=== PATIENT | male | born 1950 | race Caucasian/White ===

== ENCOUNTER 2017-07-02 09:53 | Inpatient (IN) | payer MEDICARE, BC ==
[2017-07-02] VITALS (7 sets, daily range): BP systolic 124–159; BP diastolic 69–92
[~2017-07-02] VITALS: Ht 177.8 cm; Wt 110.7 kg
[2017-07-02] MEDS ORDERED: ASPIRIN 81 MG TAB.CHEW PO ONE (10:30)
[2017-07-02] MEDS ORDERED: 0.9 % SODIUM CHLORIDE 10 ML DISP.SYRIN. IV PRN (10:30)
[2017-07-02] MEDS ORDERED: IV NORMAL SALINE 1,000ML 1,000 ML IV SCH (10:30)
--- NOTE | 2017-07-02 10:44 | RAD ---
AP PORTABLE CHEST Clinical Indication: sob x1 week. History of COPD. Comparison: AP chest 07/14/2011. Findings: The cardiomediastinal silhouette is normal. There are reticular opacities in the right midlung and the bilateral lung bases. There is no pneumothorax. No pleural effusion is appreciated. There is no acute bone abnormality. IMPRESSION: Reticular opacities in the bilateral lung bases and the right midlung may be interstitial edema or interstitial pneumonia.
[2017-07-02] MEDS ORDERED: methylPREDNISolone SOD SUCC PF 125 MG/2 ML VIAL. IV ONE (10:45)
[2017-07-02] MEDS ORDERED: IPRATRPIUM/ALBUTEROL 0.5/2.5MG 3 ML NEBU. NEB ONE (10:45)
[2017-07-02] MEDS: IV NORMAL SALINE 1,000ML 1,000 ML IV SCH ×4 (10:50→14:33)
--- NOTE | 2017-07-02 10:55 | PHYS DOC ---
Past History Past Medical History: Cancer, COPD, Depression, Diabetes, Heart Disease, Hypertension Past Surgical History: Appendectomy, Knee Replacement Smoking: Quit Greater Than 1 Year Alcohol Use: Occasionally Adult General Chief Complaint Chief Complaint: SHORTNESS OF BREATH [facility] HPI Patient is a pleasant 67-year-old gentleman with history of diabetes, prior stroke cancer requiring chemotherapy and radiation therapy, with a history of COPD, hypercholesterolemia, depression, diabetes peripheral neuropathy, hypertension, who presents to the ER today complaining of increased shortness of breath cough and generalized weakness. Patient began having symptoms of cough runny nose and congestion with low-grade subjective fevers at home 1 week ago. He was seen in the office by Dr. Lara as a nurse practitioner Miss Archuleta and placed on azithromycin. With a course last 3 or 4 days he has not improved his symptoms but his had increasing shortness of breath with work of breathing and now constantly coughing. Patient is sleepy according to family and has had so much weakness that he is followed multiple times although not complaining of any specific pain. Patient's saturation rate is also been noted be dropped because of increased oxygen demand around 80-85%. Patient denies any chest pain, denies any changes in medications, denies any travel outside the country but hospital on a course of azithromycin. He does complain of chest tightness and dyspnea on exertion generalized fatigue without diaphoresis. Differential diagnosis: Acute myocardial ischemia, heart failure, cardiac tamponade, bronchospasm, pulmonary embolism, pneumothorax, pulmonary infection i.e. bronchitis or pneumonia, upper airway obstruction, anaphylaxis, aspiration , psychogenic, pulmonary contusion, toxidrome, pneumomediastinum, noncardiogenic pulmonary edema or ARDS, COPD, tuberculosis, cystic fibrosis, asthma, high altitude pulmonary edema, valvular dysfunction, cardiac dysrhythmia , stroke, neuromuscular diseases like myasthenia gravis gravis, ALS, Guillain- Mathews syndrome, metabolic acidosis to include diabetic ketoacidosis, sepsis, and obstructive disorders like massive obesity Review of Systems Review of Systems Constitutional: Patient has complained of subjective fevers and chills as well as hyperglycemia secondary to diabetes is poorly controlled. Eyes: Denies change in visual acuity, redness, or eye pain [] HENT: he has had some thick nasal congestion without sore throat Respiratory: This patient has had a nonproductive cough with increased shortness of breath Cardiovascular: No additional information not addressed in HPI [] GI: Denies abdominal pain, nausea, vomiting, bloody stools or diarrhea [] : Denies dysuria or hematuria [] Musculoskeletal: Denies back pain or joint pain [] Integument: Denies rash or skin lesions [] Neurologic: Denies headache, focal weakness or sensory changes patient was of generalized weakness and fatigue [] Endocrine: Denies polyuria or polydipsia [] All other systems were reviewed and found to be within normal limits, except as documented in this note. Current Medications Current Medications Current Medications Medications (Trade) Dose Ordered Sig/Jacobo Start Time Stop Time Status Last Admin Dose Admin Aspirin (Children'S Aspirin) 324 mg 1X ONCE 07/02/17 10:30 07/02/17 10:31 DC Fentanyl Citrate (Fentanyl 2ml Vial) 50 mcg PRN Q15MIN PRN 07/02/17 10:30 07/03/17 10:29 Sodium Chloride 1,000 ml @ 3,060 mls/hr Q20M 07/02/17 10:30 07/02/17 11:30 Sodium Chloride (Normal Saline Flush) 10 ml QSHIFT PRN 07/02/17 10:30 Allergies Allergies Allergies Coded Allergies Type Severity Reaction Last Updated Verified No Known Drug Allergies 07/02/17 No Physical Exam Physical Exam Other vital signs recorded on the chart patient noted to be tachycardic, hypoxic , tachypnea, without signs of fever Constitutional: Well developed, well nourished, patient is having some mild respiratory distress but no retractions or sensory muscle use. Patient is pale but nondiaphoretic nontoxic in appearance[] HENT: Normocephalic, atraumatic, bilateral external ears normal, oropharynx dry , no oral exudates there is erythema, nose normal. [] Eyes: PERRLA, EOMI, conjunctiva normal, no discharge. [] Neck: Normal range of motion, no tenderness, supple, no stridor. No cervical lymphadenopathy [] Cardiovascular: Patient demonstrated tachycardia with no obvious murmurs Rubs[] Lungs & Thorax: Patient has essentially clear breath sounds auscultation with the exception of rhonchi coarse at the right base and occasional wheezes with cough.[] Abdomen: Bowel sounds normal, soft, no tenderness, no masses, no pulsatile masses. [] Skin: Warm, dry, no erythema, no rash. [] Extremities: No tenderness, no cyanosis, no clubbing, ROM intact, no edema. [] Neurologic: Alert and oriented X 3, normal motor function, normal sensory function, no focal deficits noted. [] Psychologic: Affect normal, judgement normal, mood normal. [] EKG EKG []EKG timed 10:04 AM read by me 07/02/2017 demonstrates a P wave there were QRS is normal sinus rhythm with a NE interval 170 which is normal, QRS width of 84 which is normal, QTC of 439 which is normal, there is a right bundle branch block RR prime in V1 it is incomplete in nature given the width of the QRS there is also T-wave inversion in lead V1 which may be a normal variant Radiology/Procedures Radiology/Procedures [] [address] [address] IMAGING REPORT Signed PATIENT: LILIA BENDER ACCOUNT: [id number] : 1950 LOCATION: ER AGE: 67 SEX: M EXAM STATUS: PRE ER ORD. PHYSICIAN: JARETT PEGUERO MD REASON: sob PROCEDURE: PORTABLE CHEST 1V AP PORTABLE CHEST Clinical Indication: sob x1 week. History of COPD. Comparison: AP chest 07/14/2011. Findings: The cardiomediastinal silhouette is normal. There are reticular opacities in the right midlung and the bilateral lung bases. There is no pneumothorax. No pleural effusion is appreciated. There is no acute bone abnormality. IMPRESSION: Reticular opacities in the bilateral lung bases and the right midlung may be interstitial edema or interstitial pneumonia. DICTATED AND SIGNED BY: BETH REYES MD DATE: 07/02/17 1040 CC: JARETT PEGUERO MD ~ Course & Med Decision Making Course & Med Decision Making Pertinent Labs and Imaging studies reviewed. (See chart for details) []This patient presents as a 67-year-old gentleman with history of diabetes, hypertension hyperlipidemia all with increasing oxygen demand will be treated as an outpatient for pneumonia with a history of COPD. He in my estimation as pneumonia and a COPD exacerbation are hospitalization. Patient is very hypoxic on exam satting 85% on 2 L nasal cannula as and never has needed an oxygen delivery system in the past. Patient admits he's been very short of breath with exertion and has had fevers and chills. He's been seen by his primary care doctor earlier this week and placed on azithromycin which did not improve his symptoms. Because of the patient's abnormal vital signs are treat himself as a septic patient he will have low blood cultures, lactic acid, troponin, proBNP, chest x-ray, fluids given as well as antibiotics appropriate for a pulmonary infection with failed outpatient management for community acquired pneumonia. I will treat him as any hospital-acquired pneumonia given his recent treatment and interaction with hospital physicians. Diesel Retrofit Installer note: Dr. Deondre Lawson Diesel Retrofit Installer called at of the service service: 11:30 AM Consult called back at 11:31 AM Discussed the case I presented and they agreed with admission. Time of acceptance 11:31 AM Critical Care: The high probability of sudden, clinically significant deterioration in the patient's condition required the highest level of my preparedness to intervene urgently. The services I provided to this patient were to treat and/or prevent clinically significant deterioration. Services included the following: chart data review, reviewing nursing notes and/or old charts, documentation time, websphere commerce consultant collaboration regarding findings and treatment options, medication orders and management, direct patient care, vital sign assessments and ordering, interpreting and reviewing diagnostic studies/ lab tests. Aggregate critical care time includes only time during which I was engaged in work directly related to the patient's care, as described above, whether at the bedside or elsewhere in the Emergency Department. It did not include time spent performing other reported procedures or the services of nurses or physician assistants. Critical Care Time: 40 Dragon Disclaimer Dragon Disclaimer This electronic medical record was generated, in whole or in part, using a voice recognition dictation system. Departure Departure: Impression: Primary Impression: Pneumonia Additional Impressions: Hypoxia COPD (chronic obstructive pulmonary disease) Disposition: 09 ADMITTED INPATIENT Admitting Physician: Deondre Lawson Condition: GUARDED Problem Qualifiers JARETT PEGUERO MD Jul 02, 2017 10:54
[2017-07-02 11:01] LABS: BASO # 0.1 x10^3/uL (0.0-0.2); BASO % 1 % (0-3); EOS # 0.2 x10^3/uL (0.0-0.7); EOS % 1 % (0-3); HEMATOCRIT 42.5 % (39.0-53.0); HEMOGLOBIN 14.2 g/dL (13.0-17.5); LYMPH # 1.3 x10^3/uL (1.0-4.8); LYMPH % 8 % (24-48); MEAN CORPUSCULAR HEMOGLOBIN 30 pg (25-35); MEAN CORPUSCULAR HGB CONC 33 g/dL (31-37); MEAN CORPUSCULAR VOLUME 89 fL (79-100); MONO # 1.4 x10^3/uL (0.0-1.1); MONO % 9 % (0-9); NEUT # 12.7 x10^3uL (1.8-7.7); NEUT % 81 % (31-73); PLATELET COUNT 426 x10^3/uL (140-400); RED CELL DISTRIBUTION WIDTH 14.4 % (11.5-14.5); WHITE BLOOD COUNT 15.6 x10^3/uL (4.0-11.0)
[2017-07-02 11:15] LABS: ALBUMIN 2.6 g/dL (3.4-5.0); CREATININE 1.2 mg/dL (0.7-1.3); DIRECT BILIRUBIN 0.2 mg/dL (0.0-0.2); GFR 60.2; MAGNESIUM 2.2 mg/dL (1.8-2.4); POTASSIUM 4.2 mmol/L (3.5-5.1); TOTAL BILIRUBIN 0.5 mg/dL (0.2-1.0); TOTAL PROTEIN 6.9 g/dL (6.4-8.2)
[2017-07-02 11:28] LABS: INFLUENZA A PATIENT NEGATIVE (NEGATIVE); INFLUENZA B PATIENT NEGATIVE (NEGATIVE)
[2017-07-02 11:40] LABS: % BANDS 1 % (0-9); % LYMPHS 11 % (24-48); % MONOS 7 % (0-10); % SEGS 79 % (35-66)
[2017-07-02 11:41] LABS: PLT ESTIMATE INCREASED (ADEQUATE); POLYCHROMASIA SLIGHT; TOXIC GRANULATION SLIGHT; TOXIC VACUOLATION SLIGHT
[2017-07-02 11:42] LABS: % ATYL 2 % (0-0)
[2017-07-02] MEDS ORDERED: ONDANSETRON PF 4 MG/2 ML VIAL. IV PRN (11:45)
[2017-07-02] MEDS ORDERED: ACETAMINOPHEN 325 MG TABLET PO PRN (11:45)
[2017-07-02] MEDS: IPRATRPIUM/ALBUTEROL 0.5/2.5MG 3 ML NEBU. NEB SCH ×3 (12:00→19:54)
[2017-07-02] MEDS ORDERED: VANCOMYCIN 2 GM in IV NORMAL SALINE 500ML 500 ML IV ONE (12:00)
[2017-07-02 12:09] LABS: BGAS PH 7.42 (7.35-7.46)
--- NOTE | 2017-07-02 12:31 | EKG ---
[address] [address] Test Date: 2017-07-02 Test Time: 10:04:50 Pat Name: LILIA BENDER Department: Room: Gender: M Public Information Director: JUANA : 1950 Requested By: JARETT PEGUERO Order Number: [id number] Reading MD: Measurements Intervals [place] Rate: 87 P: -124 VA: 170 QRS: 39 QRSD: 84 T: 48 QT: 360 QTc: 439 Interpretive Statements SINUS RHYTHM INCOMPLETE RIGHT BUNDLE BRANCH BLOCK QRS(T) CONTOUR ABNORMALITY CONSIDER INFERIOR MYOCARDIAL DAMAGE POSSIBLY ABNORMAL ECG RI6.01 Unconfirmed report No previous ECG available for comparison
[2017-07-02] MEDS ORDERED: CEFEPIME HCL 2 GM VIAL IV ONE (14:28)
[2017-07-02] MEDS ORDERED: IV NORMAL SALINE 100ML 100 ML ONE (14:29)
[2017-07-02] MEDS: CEFEPIME HCL 2 GM in IV NORMAL SALINE 100ML 100 ML IV SCH ×2 (14:34→15:29)
--- NOTE | 2017-07-02 15:08 | PDOC2 ---
CONSULT Date of Admission DATE: 07/02/17 TIME: 15:08 Reason for Consult: Possible CHF Referring Physician: Dr. Lawson Chief Complaint Shortness of breath Source: Chart review, Patient Problem List Problems Medical Problems: (1) COPD (chronic obstructive pulmonary disease) Status: Acute (2) Hypoxia Status: Acute (3) Pneumonia Status: Acute History of Present Illness 67-year-old male with history of COPD presented to ED with progressive shortness of breath and cough. He apparently was seen at PCPs office recently for cough, congestion or more fever and shortness of breath and was started on Z -Juan without any significant relief in his symptoms. He complained of mild chest discomfort with coughing but denied any orthopnea/PND, palpitations or syncope. He denied any previous cardiac history. Past Medical History COPD Depression Hypertension Hyperlipidemia Diabetes mellitus type 2 with peripheral neuropathy Stroke Past Surgical History Appendectomy Knee replacement surgery Family History Negative for premature coronary artery disease Social History Patient quit smoking a few years ago, admitted to occasional alcohol intake and denied any drug abuse. Current Medications Current Medications Aspirin (Children'S Aspirin) 324 mg 1X ONCE PO Last administered on 11:00; Start 07/02/17 at 10:30; Stop 07/02/17 at 10:31; Status DC Fentanyl Citrate (Fentanyl 2ml Vial) 50 mcg PRN Q15MIN PRN IV PAIN GREATER THAN 3/10; Start 07/02/17 at 10:30; Stop 07/03/17 at 10:29 Sodium Chloride 1,000 ml @ 1,000 mls/hr Q1H IV Last administered on 10:59; Start 07/02/17 at 10:30; Stop 07/02/17 at 11:29; Status DC Sodium Chloride (Normal Saline Flush) 10 ml QSHIFT PRN IV AFTER MEDS AND BLOOD DRAWS; Start 07/02/17 at 10:30 Sodium Chloride 1,000 ml @ 3,060 mls/hr Q20M IV Last administered on 14:33; Start 07/02/17 at 10:30; Stop 07/02/17 at 11:30; Status DC Methylprednisolone Sodium Succinate (SOLU-Medrol 125MG VIAL) 125 mg 1X ONCE IV Last administered on 07/02/17 11:00; Start 07/02/17 at 10:45; Stop at 10:46; Status DC Albuterol/ Ipratropium (Duoneb) 3 ml 1X ONCE NEB Last administered on 11:04; Start 07/02/17 at 10:45; Stop 07/02/17 at 10:46; Status DC Ondansetron HCl (Zofran) 4 mg PRN Q4HRS PRN IV NAUSEA/VOMITING; Start at 11:45; Stop 07/03/17 at 11:44 Fentanyl Citrate (Fentanyl 2ml Vial) 50 mcg PRN Q2HR PRN IV PAIN; Start at 11:45; Stop 07/03/17 at 11:44 Acetaminophen (Tylenol) 650 mg PRN Q4HRS PRN PO FEVER; Start 07/02/17 at 11:45 ; Stop 07/03/17 at 11:44 Albuterol/ Ipratropium (Duoneb) 3 ml RTQID NEB ; Start 07/02/17 at 12:00; Stop 07/03/17 at 11:59 Cefepime HCl 2 gm/ Sodium Chloride 100 ml @ 200 mls/hr Q8HRS IV Last administered on 07/02/17 14:34; Start 07/02/17 at 14:00 Vancomycin HCl (Vanco Per Pharmacy) 1 each PRN DAILY PRN MC SEE COMMENTS; Start 07/02/17 at 11:45 Vancomycin HCl 2 gm/Sodium Chloride 500 ml @ 250 mls/hr 1X ONCE IV Last administered on 07/02/17 12:00; Start 07/02/17 at 12:00; Stop 07/02/17 at 13 :59; Status DC Cefepime HCl (Maxipime) 2 gm STK-MED ONCE IV ; Start 07/02/17 at 14:28; Stop 07/02/17 at 14:29; Status DC Sodium Chloride 100 ml @ As Directed STK-MED ONCE .ROUTE ; Start 07/02/17 at 14:29; Stop 07/02/17 at 14:30; Status DC Allergies: Coded Allergies: No Known Drug Allergies (Unverified , 07/02/17) PSYCHOLOGICAL ROS: No: Hallucinations Eyes: No: Loss of vision HEENT: No: Epistaxis Respiratory: YES: Cough, Shortness of breath, No: Hemoptysis Cardiovascular: yes: Chest Pain, No: Palpitations Gastrointestinal: No: Vomiting, Diarrhea Genitourinary: No: Henaturia Neurological: No: Seizures Skin: No: Rash General: Alert, mild distress HEENT: Atraumatic, PERRLA Lungs: Other (scattered crepitations bilaterally) Heart: Regular rate Abdomen: Soft Skin: No rashes Psych/Mental Status: Mood NL VITALS Vital Signs Date Time Temp Pulse Resp B/P (MAP) Pulse Ox O2 Delivery O2 Flow Rate FiO2 07/02/17 14:30 78 16 156/79 (104) 94 Nasal Cannula 3.0 07/02/17 09:55 99.0 Labs Laboratory Tests Test 07/02/17 10:10 07/02/17 10:12 07/02/17 10:25 07/02/17 13:55 White Blood Count 15.6 x10^3/uL (4.0-11.0) Red Blood Count 4.80 x10^6/uL (4.30-5.70) Hemoglobin 14.2 g/dL (13.0-17.5) Hematocrit 42.5 % (39.0-53.0) Mean Corpuscular Volume 89 fL (79-100) Mean Corpuscular Hemoglobin 30 pg (25-35) Mean Corpuscular Hemoglobin Concent 33 g/dL (31-37) Red Cell Distribution Width 14.4 % (11.5-14.5) Platelet Count 426 x10^3/uL (140-400) Neutrophils (%) (Auto) 81 % (31-73) Lymphocytes (%) (Auto) 8 % (24-48) Monocytes (%) (Auto) 9 % (0-9) Eosinophils (%) (Auto) 1 % (0-3) Basophils (%) (Auto) 1 % (0-3) Neutrophils # (Auto) 12.7 x10^3uL (1.8-7.7) Lymphocytes # (Auto) 1.3 x10^3/uL (1.0-4.8) Monocytes # (Auto) 1.4 x10^3/uL (0.0-1.1) Eosinophils # (Auto) 0.2 x10^3/uL (0.0-0.7) Basophils # (Auto) 0.1 x10^3/uL (0.0-0.2) Segmented Neutrophils % 79 % (35-66) Band Neutrophils % 1 % (0-9) Lymphocytes % 11 % (24-48) Atypical Lymphocytes % (Manual) 2 % (0-0) Monocytes % 7 % (0-10) Toxic Granulation Slight Toxic Vacuolation Slight Platelet Estimate Increased (ADEQUATE) Large Platelets Occ Polychromasia Slight Sodium Level 136 mmol/L (136-145) Potassium Level 4.2 mmol/L (3.5-5.1) Chloride Level 99 mmol/L (98-107) Carbon Dioxide Level 29 mmol/L (21-32) Anion Gap 8 (6-14) Blood Urea Nitrogen 21 mg/dL (8-26) Creatinine 1.2 mg/dL (0.7-1.3) Estimated GFR (Cockcroft-Gault) 60.2 Glucose Level 172 mg/dL (70-99) Lactic Acid Level 1.8 mmol/L (0.4-2.0) 1.4 mmol/L (0.4-2.0) Calcium Level 9.0 mg/dL (8.5-10.1) Magnesium Level 2.2 mg/dL (1.8-2.4) Total Bilirubin 0.5 mg/dL (0.2-1.0) Direct Bilirubin 0.2 mg/dL (0.0-0.2) Aspartate Amino Transf (AST/SGOT) 25 U/L (15-37) Alanine Aminotransferase (ALT/SGPT) 35 U/L (16-63) Alkaline Phosphatase 270 U/L (46-116) Creatine Kinase 291 U/L (39-308) Creatine Kinase MB (Mass) 2.4 ng/mL (0.0-3.6) Creatine Kinase MB Relative Index 0.8 % (0-4) Troponin I Quantitative < 0.017 ng/mL (0-0.055) XG-Nqh-W-Type Natriuretic Peptide 611 pg/mL (0-124) Total Protein 6.9 g/dL (6.4-8.2) Albumin 2.6 g/dL (3.4-5.0) Lipase 47 U/L (73-393) Influenza Type A (Rapid) Negative (NEGATIVE) Influenza Type B (Rapid) Negative (NEGATIVE) Blood Gas pH 7.42 (7.35-7.46) Blood Gas PCO2 39 mmHg (35-46) Blood Gas PO2 53 mmHg (80-100) Blood Gas HCO3 25 mmol/L (21-28) Arterial Bld O2 Saturation (Calc) 88 % (92-99) FiO2 28 % Assessment/Plan 1. Acute respiratory failure secondary to combination of acute COPD exacerbation and possible pneumonia based on chest x-ray findings. BNP slightly elevated but patient does not have any clinical evidence for fluid overload. Doubt congestive heart failure. BNP elevation could be secondary to pneumonia. We will obtain 2-D echo to assess LV systolic function - could be done as an outpatient if it is not available over weekend due to holidays. Continue treatment of COPD and pneumonia per IM. 2. Hypertension: Well-controlled 3. Hyperlipidemia: Statins 4. Diabetes mellitus type 2: Treat per PCP Thank you for your consultation Problems: GILA SÁNCHEZ MD Jul 02, 2017 15:08
[2017-07-02] MEDS ORDERED: CETI10TA16 PO (16:00)
[2017-07-02] MEDS ORDERED: INSU100I13 SQ (16:00)
[2017-07-02] MEDS ORDERED: ESOM40CA PO (16:00)
[2017-07-02] MEDS ORDERED: ESCITALOPRAM OX10 MG PO (16:00)
[2017-07-02] MEDS ORDERED: GABA-586 PO (16:00)
[2017-07-02] MEDS ORDERED: PRAV20TA2 PO (16:00)
[2017-07-02] MEDS ORDERED: FLUT9.9S NS (16:00)
[2017-07-02] MEDS ORDERED: BUPR-192 PO (16:00)
[2017-07-02] MEDS ORDERED: VITA80003 PO (16:00)
[2017-07-02] MEDS ORDERED: LORA0.5T96 PO (16:00)
[2017-07-02] MEDS ORDERED: LISI-334 PO (16:00)
[2017-07-02] MEDS ORDERED: DEXTROSE 50% 25 GM / 50ML DISP.SYRIN. IV PRN (16:15)
[2017-07-02] MEDS ORDERED: INSULIN ASPART 300 UNITS/3 ML INSULN.PEN SQ SCH (16:30)
[2017-07-02] MEDS: VANCOMYCIN PER PHARMACY MC PRN (16:34)
[2017-07-02] MEDS: INSULIN ASPART 300 UNITS/3 ML INSULN.PEN SQ SCH (17:03)
[2017-07-02] MEDS: buPROPion XL 150 MG TAB.ER.24H PO SCH (20:53)
[2017-07-02] MEDS: PRAVASTATIN 20 MG TABLET. PO SCH (20:53)
[2017-07-02] MEDS: GABAPENTIN 300 MG CAPSULE. PO SCH (20:53)
[2017-07-02] MEDS: INSULIN DETEMIR 300 UNITS/3 ML INSULN.PEN. SQ SCH (20:53)
[2017-07-02] MEDS: methylPREDNISolone SOD SUCC PF 40 MG/ML VIAL. IV SCH (20:53)
[2017-07-02] MEDS: PANTOPRAZOLE 40 MG TABLET. PO SCH (20:53)
[2017-07-02] MEDS ORDERED: GABAPENTIN 300 MG CAPSULE. PO SCH (21:00)
[2017-07-02] MEDS ORDERED: INSULIN ASPART 300 UNITS/3 ML INSULN.PEN SQ ONE (21:00)
[2017-07-02] MEDS: VANCOMYCIN 1.5 GM in IV NORMAL SALINE 500ML 500 ML IV SCH (23:44)
[2017-07-02 23:58] LABS: BILIRUBIN,URINE NEG (NEG); CLARITY,URINE CLEAR; COLOR,URINE YELLOW; GLUCOSE,URINE >=1000 mg/dL (NEG)
[2017-07-02 23:59] LABS: BACTERIA,URINE 0 /HPF (0-FEW); NITRITE,URINE NEG (NEG); RBC,URINE 0 /HPF (0-2); UROBILINOGEN,URINE 0.2 mg/dL (0.2 mg/dL); WBC,URINE 0 /HPF (0-4)
[2017-07-03] VITALS (14 sets, daily range): BP systolic 131–176; BP diastolic 65–87
[2017-07-03] MEDS: IPRATRPIUM/ALBUTEROL 0.5/2.5MG 3 ML NEBU. NEB SCH ×4 (05:39→20:03)
[2017-07-03] MEDS: INSULIN ASPART 300 UNITS/3 ML INSULN.PEN SQ SCH ×4 (07:30→20:29)
[2017-07-03 07:45] LABS: BASO # 0.2 x10^3/uL (0.0-0.2); BASO % 1 % (0-3); CALCIUM 8.7 mg/dL (8.5-10.1); CREATININE 1.3 mg/dL (0.7-1.3); EOS % 0 % (0-3); GFR 54.9; HEMATOCRIT 38.9 % (39.0-53.0); HEMOGLOBIN 12.9 g/dL (13.0-17.5); LYMPH # 0.6 x10^3/uL (1.0-4.8); LYMPH % 4 % (24-48); MEAN CORPUSCULAR HEMOGLOBIN 29 pg (25-35); MEAN CORPUSCULAR HGB CONC 33 g/dL (31-37); MEAN CORPUSCULAR VOLUME 89 fL (79-100); MONO # 0.6 x10^3/uL (0.0-1.1); MONO % 3 % (0-9); NEUT # 15.8 x10^3uL (1.8-7.7); NEUT % 92 % (31-73); PLATELET COUNT 396 x10^3/uL (140-400); POTASSIUM 4.1 mmol/L (3.5-5.1); RED BLOOD COUNT 4.37 x10^6/uL (4.30-5.70); RED CELL DISTRIBUTION WIDTH 14.6 % (11.5-14.5); WHITE BLOOD COUNT 17.2 x10^3/uL (4.0-11.0)
[2017-07-03] MEDS ORDERED: INSULIN DETEMIR 300 UNITS/3 ML INSULN.PEN. SQ ONE (08:15)
[2017-07-03] MEDS ORDERED: INSULIN ASPART 300 UNITS/3 ML INSULN.PEN SQ ONE ×2 (08:15→19:30)
[2017-07-03] MEDS ORDERED: NON FORMULARY ITEM (Vitamin A 8,000 UNIT) PO SCH (09:00)
[2017-07-03] MEDS ORDERED: NON FORMULARY ITEM (Escitalopram Oxalate 1 TAB) PO SCH (09:00)
[2017-07-03] MEDS: CETIRIZINE HCL 10 MG TABLET PO SCH (09:16)
[2017-07-03] MEDS: CITALOPRAM 20 MG TABLET. PO SCH (09:16)
[2017-07-03] MEDS: LACTOBACILLUS RHAMNOSUS GG 1 CAPSULE. PO SCH ×2 (09:16→20:27)
[2017-07-03] MEDS: GABAPENTIN 300 MG CAPSULE. PO SCH ×3 (09:17→20:27)
[2017-07-03] MEDS: buPROPion XL 150 MG TAB.ER.24H PO SCH ×2 (09:17→20:27)
[2017-07-03] MEDS: FLUTICASONE 50MCG/NASAL SPRAY 16GM BOTTLE. NS SCH (09:17)
[2017-07-03] MEDS: PANTOPRAZOLE 40 MG TABLET. PO SCH ×2 (09:17→20:26)
[2017-07-03] MEDS: methylPREDNISolone SOD SUCC PF 40 MG/ML VIAL. IV SCH (09:18)
[2017-07-03] MEDS: LISINOPRIL 20 MG TABLET PO SCH (09:18)
[2017-07-03] MEDS: VANCOMYCIN 1.5 GM in IV NORMAL SALINE 500ML 500 ML IV SCH (11:29)
[2017-07-03] MEDS ORDERED: CEFEPIME HCL 2 GM in IV NORMAL SALINE 100ML 100 ML IV ONE (16:30)
[2017-07-03] MEDS: LORazepam 0.5 MG TABLET PO PRN (20:27)
[2017-07-03] MEDS: PRAVASTATIN 20 MG TABLET. PO SCH (20:27)
[2017-07-03] MEDS: INSULIN DETEMIR 300 UNITS/3 ML INSULN.PEN. SQ SCH (20:28)
--- NOTE | 2017-07-03 21:11 | PN ---
DATE: 07/03/2017 SUBJECTIVE: A 67-year-old male in with pneumonia, sinus tachycardia. The patient is resting fairly comfortably, making fairly good progress overall. OBJECTIVE: VITAL SIGNS: Blood pressure 140/75, respiratory rate in the 80s, pulse in the 90s, oxygen saturation 3 liters, but apparently desaturates in the 80s with oxygen off. The patient continued to receive aggressive pulmonary toilet. He is on antibiotics for the pneumonia. Also, insulin in getting the sugars down. Continue to monitor him accordingly and the like. GENERAL: Otherwise, alert and oriented. LUNGS: Diminished throughout, poor movement of air. CARDIOVASCULAR: Regular sinus rhythm, S1, S2. PLAN: We will continue to monitor him accordingly. Make further evaluation on him as indicated. IMPRESSION: Pneumonia of unspecified etiology, community acquired, sinus tachycardia, hyperglycemia, type 2 diabetes, poorly controlled, obesity, hyponatremia. Continue on IV antibiotic therapy, aggressive pulmonary toilet. Taper down on prednisone to control blood sugars well. ROBIN ESPARZA MD DR: DOMONIQUE/sanam JOB#: [id number] / [id number]
[2017-07-03] MEDS: CEFEPIME HCL IV Push 2 GM VIAL. IVP SCH (21:44)
[2017-07-04] MEDS: VANCOMYCIN 1.5 GM in IV NORMAL SALINE 500ML 500 ML IV SCH ×2 (00:25→12:23)
[2017-07-04] MEDS: VANCOMYCIN PER PHARMACY MC PRN (00:42)
[2017-07-04] MEDS ORDERED: PNEUMOCOCCAL VAX SCREEN. MC PRN (02:45)
[2017-07-04] MEDS: IPRATRPIUM/ALBUTEROL 0.5/2.5MG 3 ML NEBU. NEB SCH ×4 (05:13→22:43)
[2017-07-04 05:14] VITALS: BP 133/75
[2017-07-04] MEDS: CEFEPIME HCL IV Push 2 GM VIAL. IVP SCH ×3 (06:26→21:39)
[2017-07-04 06:34] LABS: BASO % 0 % (0-3); EOS % 0 % (0-3); HEMOGLOBIN 12.6 g/dL (13.0-17.5); LYMPH % 5 % (24-48); MEAN CORPUSCULAR HEMOGLOBIN 30 pg (25-35); MEAN CORPUSCULAR HGB CONC 33 g/dL (31-37); MEAN CORPUSCULAR VOLUME 89 fL (79-100); MONO # 1.1 x10^3/uL (0.0-1.1); MONO % 6 % (0-9); NEUT % 89 % (31-73); PLATELET COUNT 409 x10^3/uL (140-400); RED BLOOD COUNT 4.28 x10^6/uL (4.30-5.70); RED CELL DISTRIBUTION WIDTH 14.5 % (11.5-14.5); WHITE BLOOD COUNT 20.1 x10^3/uL (4.0-11.0)
[2017-07-04 06:43] LABS: CALCIUM 8.5 mg/dL (8.5-10.1); CREATININE 1.2 mg/dL (0.7-1.3); GFR 60.2; POTASSIUM 4.2 mmol/L (3.5-5.1)
[2017-07-04] MEDS: INSULIN ASPART 300 UNITS/3 ML INSULN.PEN SQ SCH ×7 (07:30→21:22)
[2017-07-04] MEDS ORDERED: PNEUMOC CONJ VACC 23-VALENT 0.5 ML VIAL. VAX IM ONE (09:00)
[2017-07-04] MEDS: LACTOBACILLUS RHAMNOSUS GG 1 CAPSULE. PO SCH ×2 (09:22→21:17)
[2017-07-04] MEDS: CETIRIZINE HCL 10 MG TABLET PO SCH (09:22)
[2017-07-04] MEDS: CITALOPRAM 20 MG TABLET. PO SCH (09:22)
[2017-07-04] MEDS: PANTOPRAZOLE 40 MG TABLET. PO SCH ×2 (09:22→21:18)
[2017-07-04] MEDS: GABAPENTIN 300 MG CAPSULE. PO SCH ×3 (09:23→21:18)
[2017-07-04] MEDS: LISINOPRIL 20 MG TABLET PO SCH (09:23)
[2017-07-04] MEDS: buPROPion XL 150 MG TAB.ER.24H PO SCH ×2 (09:23→21:17)
[2017-07-04] MEDS: FLUTICASONE 50MCG/NASAL SPRAY 16GM BOTTLE. NS SCH (09:24)
[2017-07-04] MEDS: methylPREDNISolone SOD SUCC PF 40 MG/ML VIAL. IV SCH (09:29)
[2017-07-04 10:34] VITALS: BP 130/78
[2017-07-04 14:15] LABS: % BANDS 6 % (0-9); % LYMPHS 3 % (24-48); % MONOS 4 % (0-10); % SEGS 87 % (35-66)
[2017-07-04 14:18] LABS: PLT ESTIMATE INCREASED (ADEQUATE)
[2017-07-04 15:47] VITALS: BP 147/70
--- NOTE | 2017-07-04 18:28 | PN ---
DATE: SUBJECTIVE: A 67-year-old gentleman in with acute exacerbation of COPD. The patient is resting fairly comfortably, he is still breathing fairly hard, desaturates quite a bit if he is taken off his oxygen. Because of the holiday unable to get him oxygen and nebulizer. OBJECTIVE: VITAL SIGNS: Otherwise, blood pressure 140/70, respiratory rate 20, pulse 80, afebrile, 3 liters at 93%. GENERAL: The patient is alert and oriented. LUNGS: Diminished with expiratory wheezes. CARDIOVASCULAR: Regular sinus rhythm, S1, S2. ABDOMEN: Soft. IMPRESSION: Pneumonia of unspecified etiology, acute exacerbation of chronic obstructive pulmonary disease, type 2 diabetes. Continue on present drug regimen and hopefully ready for discharge here soon. ROBIN ESPARZA MD DR: DOMONIQUE/sanam JOB#: [id number] / [id number]
[2017-07-04 19:25] VITALS: BP 135/84
[2017-07-04] MEDS: PRAVASTATIN 20 MG TABLET. PO SCH (21:17)
[2017-07-04] MEDS: INSULIN DETEMIR 300 UNITS/3 ML INSULN.PEN. SQ SCH (21:19)
[2017-07-04 22:57] VITALS: BP 168/94
[2017-07-04] MEDS: LORazepam 0.5 MG TABLET PO PRN (23:03)
[2017-07-05] MEDS: VANCOMYCIN 1.5 GM in IV NORMAL SALINE 500ML 500 ML IV SCH ×3 (00:11→17:05)
[2017-07-05 05:02] VITALS: BP 114/76
[2017-07-05] MEDS: IPRATRPIUM/ALBUTEROL 0.5/2.5MG 3 ML NEBU. NEB SCH ×4 (05:41→21:10)
[2017-07-05] MEDS: CEFEPIME HCL IV Push 2 GM VIAL. IVP SCH ×3 (05:51→21:41)
[2017-07-05 07:09] LABS: BASO # 0.1 x10^3/uL (0.0-0.2); BASO % 0 % (0-3); EOS % 0 % (0-3); HEMATOCRIT 39.4 % (39.0-53.0); LYMPH # 1.4 x10^3/uL (1.0-4.8); LYMPH % 9 % (24-48); MEAN CORPUSCULAR HEMOGLOBIN 29 pg (25-35); MEAN CORPUSCULAR HGB CONC 33 g/dL (31-37); MEAN CORPUSCULAR VOLUME 89 fL (79-100); MONO # 1.1 x10^3/uL (0.0-1.1); MONO % 7 % (0-9); NEUT % 83 % (31-73); PLATELET COUNT 403 x10^3/uL (140-400); RED BLOOD COUNT 4.41 x10^6/uL (4.30-5.70); RED CELL DISTRIBUTION WIDTH 14.3 % (11.5-14.5); WHITE BLOOD COUNT 15.6 x10^3/uL (4.0-11.0)
[2017-07-05 07:18] LABS: CALCIUM 8.5 mg/dL (8.5-10.1); CREATININE 1.1 mg/dL (0.7-1.3); GFR 66.6; POTASSIUM 3.8 mmol/L (3.5-5.1)
[2017-07-05] MEDS: buPROPion XL 150 MG TAB.ER.24H PO SCH ×2 (07:56→21:38)
[2017-07-05] MEDS: PANTOPRAZOLE 40 MG TABLET. PO SCH ×2 (07:56→21:38)
[2017-07-05] MEDS: methylPREDNISolone SOD SUCC PF 40 MG/ML VIAL. IV SCH (07:56)
[2017-07-05] MEDS: LACTOBACILLUS RHAMNOSUS GG 1 CAPSULE. PO SCH ×2 (07:56→21:37)
[2017-07-05] MEDS: CETIRIZINE HCL 10 MG TABLET PO SCH (07:56)
[2017-07-05] MEDS: CITALOPRAM 20 MG TABLET. PO SCH (07:56)
[2017-07-05] MEDS: GABAPENTIN 300 MG CAPSULE. PO SCH ×3 (07:56→21:38)
[2017-07-05] MEDS: LISINOPRIL 20 MG TABLET PO SCH (07:57)
[2017-07-05] MEDS: FLUTICASONE 50MCG/NASAL SPRAY 16GM BOTTLE. NS SCH (07:58)
[2017-07-05] MEDS: INSULIN ASPART 300 UNITS/3 ML INSULN.PEN SQ SCH ×7 (07:58→21:41)
[2017-07-05 11:34] VITALS: BP 155/87
[2017-07-05 11:42] LABS: VANC TR 19.9 mcg/mL (10.0-20.0)
[2017-07-05] MEDS: VANCOMYCIN PER PHARMACY MC PRN (12:27)
--- NOTE | 2017-07-05 13:35 | RAD ---
Chest, 2 views, 07/05/2017: History: Follow-up pneumonia Comparison is made to a study from 07/02/2017. The heart size is normal. There is mild tortuosity of the thoracic aorta. There are persistent reticulonodular pulmonary opacities, predominantly on the right, which appear unchanged. There is mild linear atelectasis in the right base. Slight blunting of the right costophrenic angles raises the possibility of a tiny amount of pleural fluid. IMPRESSION: 1. Persistent mild reticulonodular right pulmonary infiltrates suggesting pneumonia. 2. Mild right basilar linear atelectasis. 3. Possible tiny right pleural effusion.
[2017-07-05 15:08] VITALS: BP 143/83
[2017-07-05 20:21] VITALS: BP 130/71
[2017-07-05] MEDS ORDERED: INSULIN DETEMIR 300 UNITS/3 ML INSULN.PEN. SQ SCH (21:00)
[2017-07-05] MEDS: PRAVASTATIN 20 MG TABLET. PO SCH (21:38)
[2017-07-05] MEDS: LORazepam 0.5 MG TABLET PO PRN (21:38)
[2017-07-05] MEDS ORDERED: INSULIN ASPART 300 UNITS/3 ML INSULN.PEN SQ ONE (22:00)
[2017-07-05 23:00] VITALS: BP 148/77
[2017-07-06] MEDS: CEFEPIME HCL IV Push 2 GM VIAL. IVP SCH ×2 (05:38→14:00)
[2017-07-06] MEDS: VANCOMYCIN 1.5 GM in IV NORMAL SALINE 500ML 500 ML IV SCH (05:39)
[2017-07-06 06:05] VITALS: BP 146/88
[2017-07-06] MEDS: IPRATRPIUM/ALBUTEROL 0.5/2.5MG 3 ML NEBU. NEB SCH ×2 (06:18→10:53)
[2017-07-06 06:28] LABS: BASO % 0 % (0-3); EOS # 0.1 x10^3/uL (0.0-0.7); EOS % 1 % (0-3); HEMATOCRIT 39.5 % (39.0-53.0); HEMOGLOBIN 13.1 g/dL (13.0-17.5); LYMPH # 1.5 x10^3/uL (1.0-4.8); LYMPH % 11 % (24-48); MEAN CORPUSCULAR HEMOGLOBIN 29 pg (25-35); MEAN CORPUSCULAR HGB CONC 33 g/dL (31-37); MEAN CORPUSCULAR VOLUME 88 fL (79-100); MONO # 0.8 x10^3/uL (0.0-1.1); MONO % 6 % (0-9); NEUT # 11.5 x10^3uL (1.8-7.7); NEUT % 82 % (31-73); PLATELET COUNT 421 x10^3/uL (140-400); RED BLOOD COUNT 4.49 x10^6/uL (4.30-5.70); RED CELL DISTRIBUTION WIDTH 14.1 % (11.5-14.5)
[2017-07-06 06:32] LABS: ALBUMIN 2.3 g/dL (3.4-5.0); ALBUMIN/GLOBULIN RATIO 0.5 (1.0-1.7); CALCIUM 8.7 mg/dL (8.5-10.1); CREATININE 1.1 mg/dL (0.7-1.3); GFR 66.6; POTASSIUM 3.8 mmol/L (3.5-5.1); TOTAL BILIRUBIN 0.2 mg/dL (0.2-1.0); TOTAL PROTEIN 6.5 g/dL (6.4-8.2)
[2017-07-06] MEDS: INSULIN ASPART 300 UNITS/3 ML INSULN.PEN SQ SCH ×4 (07:30→11:30)
--- NOTE | 2017-07-06 08:15 | CARD ---
MR#: [id number] Account#: Date of Study: 07/05/2017 Ordering Physician: Jocelyn: Malika Campuzano [facility] APPROVED REPORT EXAM: Two-dimensional and M-mode echocardiogram with Doppler and color Doppler. Other Information Quality : Good INDICATION Chest Pain 2D DIMENSIONS Left Atrium(2D)4.8 (1.6-4.0cm)IVSd1.3 (0.7-1.1cm) Aortic Root(2D)3.9 (2.0-3.7cm)LVDd4.4 (3.9-5.9cm) LVOT Diameter2.2 (1.8-2.4cm)PWd1.2 (0.7-1.1cm) LVDs3.0 (2.5-4.0cm)FS (%) 30.6 % SV50.6 mlLVEF(%)58.3 (>50%) Aortic Valve AoV Peak Finn.189.9cm/sAoV VTI38.7cm AO Peak GR.14.4mmHgLVOT Peak Finn.127.4cm/s LVOT VTI 32.41cmAO Mean GR.7mmHg DUNIA (VMAX)2.98pr1CUE (VTI)3.14cm2 Mitral Valve MV E Mwhbuamu447.1cm/sMV DECEL MCPL632qh MV A Pvhshcsh71.4cm/sE/A Ratio1.4 Tricuspid Valve TR P. Duvzryau752gy/sRAP KNPDEWNO6pwIf TR Peak Gr.70hyEgGAWT08vpBr LEFT VENTRICLE The left ventricle is normal size. There is mild concentric left ventricular hypertrophy. Left ventri elaine systolic function is normal. The Ejection Fraction is 55-60%. There is normal LV segmental wall m otion. Transmitral Doppler flow pattern is Grade II-pseudonormal filling dynamics. RIGHT VENTRICLE The right ventricle is normal size. The right ventricular systolic function is normal. ATRIA The left atrium is mild to moderately dilated. The right atrium is mildly dilated. The interatrial se ptum is intact with no evidence for an atrial septal defect or patent foramen ovale as noted on 2-D o r Doppler imaging. AORTIC VALVE The aortic valve is mildly calcified and not well visualized. Doppler and Color Flow revealed no sign ificant aortic regurgitation. There is no significant aortic valvular stenosis. MITRAL VALVE The mitral valve is calcified but opens well. There is no evidence of mitral valve prolapse. There is no mitral valve stenosis. Doppler and Color-flow revealed trace to mild mitral regurgitation. TRICUSPID VALVE The tricuspid valve is normal in structure and function. Doppler and Color Flow revealed mild tricusp id regurgitation. There is no pulmonary hypertension. The PA pressure was estimated at 23 mmHg. There is no tricuspid valve prolapse or vegetation. There is no tricuspid valve stenosis. PULMONIC VALVE Doppler and Color Flow revealed no pulmonic valvular regurgitation. There is no pulmonic valvular dereje nosis. GREAT VESSELS The aortic root is normal in size. The ascending aorta is normal in size. The IVC is normal in size a nd collapses >50% with inspiration. PERICARDIAL EFFUSION There is no pleural effusion. There is no evidence of significant pericardial effusion. Critical Notification Critical Value: No <Conclusion> Left ventricle systolic function is normal. The Ejection Fraction is 55-60%. There is normal LV segmental wall motion. Signed by : Filemon Hobson, Electronically Approved : 07/05/2017 14:46:25
[2017-07-06] MEDS: FLUTICASONE 50MCG/NASAL SPRAY 16GM BOTTLE. NS SCH (09:00)
[2017-07-06] MEDS: methylPREDNISolone SOD SUCC PF 40 MG/ML VIAL. IV SCH (09:01)
[2017-07-06] MEDS: LACTOBACILLUS RHAMNOSUS GG 1 CAPSULE. PO SCH (09:01)
[2017-07-06] MEDS: PANTOPRAZOLE 40 MG TABLET. PO SCH (09:02)
[2017-07-06] MEDS: LISINOPRIL 20 MG TABLET PO SCH (09:02)
[2017-07-06] MEDS: CITALOPRAM 20 MG TABLET. PO SCH (09:02)
[2017-07-06] MEDS: CETIRIZINE HCL 10 MG TABLET PO SCH (09:02)
[2017-07-06] MEDS: buPROPion XL 150 MG TAB.ER.24H PO SCH (09:02)
[2017-07-06] MEDS: GABAPENTIN 300 MG CAPSULE. PO SCH ×2 (10:24→14:37)
[2017-07-06 11:09] VITALS: BP 142/88
[2017-07-06] MEDS ORDERED: DOXY100T PO (13:24)
[2017-07-06] MEDS ORDERED: PRED1TAB PO (13:24)
[2017-07-06] MEDS ORDERED: INSU100I17 SQ (13:24)
--- NOTE | 2017-07-06 18:59 | PN ---
DATE: SUBJECTIVE: A 67-year-old white male in with acute exacerbation of COPD, pneumonia, unspecified etiology, community acquired. The patient is doing a little bit better, but still markedly desaturates with minimal exertion. The patient otherwise says he feels a little better, but still very weak, very run down and tired and still receiving IV antibiotic therapy for his pneumonia. The patient's otherwise blood sugars have been running on the high side. His white count is still approximately 15,000, sugars in the low 200s. Try and taper him down on his Solu-Medrol. The patient otherwise seems to be resting fairly comfortably. PHYSICAL EXAMINATION: VITAL SIGNS: Include blood pressure 140/80, respiratory rate 20, pulse 77, afebrile, oxygen saturation 93% on 1-1/2 liters. GENERAL: The patient is alert and oriented. LUNGS: Diminished, primarily in the bases with crackles noted. CARDIOVASCULAR: Regular sinus rhythm, S1, S2, without murmur, rub, thrill, or extra heart sound. ABDOMEN: Soft, nontender, no rebound or guarding. Positive bowel sounds, no hepatosplenomegaly was noted. EXTREMITIES: No clubbing, cyanosis, or edema. NEUROLOGIC: Intact, as noted. The patient's white count is noted. Labs were as indicated. IMPRESSION: Acute respiratory failure with pneumonia of unspecified etiology, bilateral and make further evaluation on him as indicated. Aggressive pulmonary toilet. Will need oxygen, acute on top of chronic exacerbation of chronic obstructive pulmonary disease, type 2 diabetes, morbid obesity. ROBIN ESPARZA MD DR: DOMONIQUE/sanam JOB#: [id number] / [id number]
== END 2017-07-06 14:30 | disposition home or self-care (01) | DRG 193 ==
LOC: ER 09:53 → ICU 15:03 → 1 SOUTH 07-03 12:47
PROVIDERS: ADMIT Family Medicine; ATTEND Family Medicine
DX: J18.9 Pneumonia, unspecified organism (principal); J96.01 Acute respiratory failure with hypoxia; E87.1 Hypo-osmolality and hyponatremia; J44.0 Chronic obstructive pulmonary disease with (acute) lower respiratory infection; J44.1 Chronic obstructive pulmonary disease with (acute) exacerbation; E11.42 Type 2 diabetes mellitus with diabetic polyneuropathy; E11.65 Type 2 diabetes mellitus with hyperglycemia; E78.00 Pure hypercholesterolemia, unspecified; E78.5 Hyperlipidemia, unspecified; I10 Essential (primary) hypertension; Z96.659 Presence of unspecified artificial knee joint; F32.9 Major depressive disorder, single episode, unspecified; E66.01 Morbid (severe) obesity due to excess calories; G47.30 Sleep apnea, unspecified; Z85.9 Personal history of malignant neoplasm, unspecified; Z90.49 Acquired absence of other specified parts of digestive tract; Z87.891 Personal history of nicotine dependence; Z86.73 Personal history of transient ischemic attack (TIA), and cerebral infarction without residual deficits; Z68.35 Body mass index [BMI] 35.0-35.9, adult; Z92.3 Personal history of irradiation
CPT/HCPCS: 36415; 36600; 71010; 71020; 80048; 80053; 80076; 80202; 81001; 82553; 82803; 82947; 83605; 83690; 83735; 83880; 84443; 84484; 85007; 85025; 86738; 87040; 87641; 87804; 90732; 93005; 93306; 94620; 94640; 96361; 96365; 96366; 96375; J0692; J1815; J2920; J2930; J3370; J7040; J7620; 99291-25; J7030

== ENCOUNTER 2017-08-06 11:59 | Inpatient (IN) | payer MEDICARE, BC ==
[~2017-08-06] VITALS: Ht 177.8 cm; Wt 110.2 kg
[~2017-08-06 11:59] MED LIST: BUPR-192 PO; CETI10TA16 PO; DOXY100T PO; ESCITALOPRAM OX10 MG PO; ESOM40CA PO; FLUT9.9S NS; GABA-586 PO; INSU100I13 SQ; INSU100I17 SQ; LISI-334 PO; LORA0.5T96 PO; PRAV20TA2 PO; PRED1TAB PO; VITA80003 PO
[2017-08-06 12:32] LABS: BASO # 0.2 x10^3/uL (0.0-0.2); BASO % 1 % (0-3); EOS % 0 % (0-3); HEMATOCRIT 44.8 % (39.0-53.0); HEMOGLOBIN 15.2 g/dL (13.0-17.5); LYMPH # 1.9 x10^3/uL (1.0-4.8); LYMPH % 10 % (24-48); MEAN CORPUSCULAR HEMOGLOBIN 30 pg (25-35); MEAN CORPUSCULAR HGB CONC 34 g/dL (31-37); MEAN CORPUSCULAR VOLUME 87 fL (79-100); MONO # 0.7 x10^3/uL (0.0-1.1); MONO % 4 % (0-9); NEUT # 15.3 x10^3uL (1.8-7.7); NEUT % 85 % (31-73); PLATELET COUNT 441 x10^3/uL (140-400); RED BLOOD COUNT 5.14 x10^6/uL (4.30-5.70); RED CELL DISTRIBUTION WIDTH 14.1 % (11.5-14.5)
[2017-08-06] MEDS ORDERED: CONTRAST GIVEN MC PRN (12:45)
[2017-08-06] MEDS ORDERED: IOHEXOL 300 MG/ML 75 ML VIAL. IV ONE (12:45)
[2017-08-06 12:54] LABS: ALBUMIN 3.3 g/dL (3.4-5.0); ALBUMIN/GLOBULIN RATIO 0.7 (1.0-1.7); CALCIUM 9.6 mg/dL (8.5-10.1); CREATININE 1.5 mg/dL (0.7-1.3); GFR 46.5; MAGNESIUM 1.6 mg/dL (1.8-2.4); POTASSIUM 3.8 mmol/L (3.5-5.1); TOTAL BILIRUBIN 0.4 mg/dL (0.2-1.0); TOTAL PROTEIN 8.3 g/dL (6.4-8.2)
[2017-08-06] MEDS ORDERED: IV NORMAL SALINE 1,000ML 1,000 ML IV ONE (13:30)
[2017-08-06] MEDS ORDERED: VANCOMYCIN 1 GM in IV NORMAL SALINE 250ML 250 ML IV ONE (13:30)
[2017-08-06] MEDS ORDERED: PIPERACILLIN/TAZOBACTAM 3.375 GM in IV NORMAL SALINE 50ML 50 ML IV ONE (13:45)
[2017-08-06] MEDS ORDERED: VANCOMYCIN 2 GM in IV NORMAL SALINE 500ML 500 ML IV ONE (13:45)
[2017-08-06] MEDS ORDERED: LORazepam 2 MG/ML VIAL IV ONE (13:45)
[2017-08-06] MEDS ORDERED: IV NORMAL SALINE 50ML 50 ML ONE (13:56)
[2017-08-06] MEDS ORDERED: PIPERACILLIN/TAZOBACTAM 3.375 GM VIAL IV ONE (13:56)
[2017-08-06 14:05] LABS: % BANDS 2 % (0-9); % BASOS 0 % (0-3); % EOS 0 % (0-5); % LYMPHS 10 % (24-48); % MONOS 6 % (0-10); % SEGS 82 % (35-66); PLT ESTIMATE INCREASED (ADEQUATE)
--- NOTE | 2017-08-06 14:25 | RAD ---
Indication: Short of air and right-sided chest pain. Technique: Axial images and coronal and sagittal reformatted images are provided. Coronal maximum intensity projection reformatted images are provided. 70 mL of intravenous Omnipaque 300 was administered without complication. Comparison is a chest radiograph from July 05, 2017. One or more of the following individualized dose reduction techniques were utilized for this examination: 1. Automated exposure control 2. Adjustment of the mA and/or kV according to patient size 3. Use of iterative reconstruction technique Findings: The contrast bolus is satisfactory. There is no filling defect to suggest pulmonary embolism. There is no aortic aneurysm or dissection. There is atheromatous disease in the thoracic aorta. Heart is not enlarged. Coronary artery calcifications are noted. There is no hilar or mediastinal adenopathy. Subcentimeter short axis lymph nodes are noted with normal fatty notches. Central airways are patent. There is no pleural effusion. There is emphysema which is mild to moderate and has upper lobe predominance. There is consolidation along the major fissure within the right upper lobe. There is nodularity with tree-in-bud distribution in the right lower lobe. These findings correspond to the areas of concern on previous chest radiograph. There is dependent atelectasis. There is cholelithiasis. There is no adrenal mass. Impression: 1. Negative for pulmonary embolism. 2. Consolidation in the right upper lobe compatible with pneumonia. 3. Nodularity with tree-in-bud distribution in the right lower lobe most notably, nonspecific but also frequently infectious in etiology. Atypical infection can be considered. Follow-up would be of benefit. 4. Emphysema.
[2017-08-06] MEDS: IV NORMAL SALINE 1,000ML 1,000 ML IV SCH (14:33)
[2017-08-06] MEDS ORDERED: PIP/TAZO PER PHARMACY MC PRN (14:45)
[2017-08-06] MEDS ORDERED: ONDANSETRON PF 4 MG/2 ML VIAL. IV PRN (14:45)
[2017-08-06] MEDS ORDERED: DEXTROSE 50% 25 GM / 50ML DISP.SYRIN. IV PRN ×2 (14:45→16:00)
[2017-08-06] MEDS ORDERED: IPRATRPIUM/ALBUTEROL 0.5/2.5MG 3 ML NEBU. NEB ONE (14:45)
--- NOTE | 2017-08-06 14:55 | PHYS DOC ---
Past History Past Medical History: Cancer, COPD, Depression, Diabetes, Heart Disease, Hypertension, Pneumonia Past Surgical History: Appendectomy, Knee Replacement Smoking: Quit Greater Than 1 Year Alcohol Use: Occasionally Drug Use: None Adult General Chief Complaint Chief Complaint: CHEST PAIN HPI HPI 67-year-old male patient with history of COPD on home oxygen had pneumonia with hospitalization in end of June and his primary care physician had to increase home oxygen to 5 L because of hypoxia. Patient had an accidental fall from his typical right 5 days ago and injured his right side of his chest and seen by his primary care physician yesterday with negative x-ray for fracture continued to have chest pain and confusion according to the family member and seen by his primary care physician and sent to ER for evaluation. Patient complaining of cough and shortness of breath since his discharge from hospital without new change and denies fever and chills. Review of Systems Review of Systems Constitutional: Denies fever or chills, reports generalized weakness [] Eyes: Denies change in visual acuity, redness, or eye pain [] HENT: Denies nasal congestion or sore throat [] Respiratory: Poor cough and shortness of breath Cardiovascular: No additional information not addressed in HPI [] GI: Denies abdominal pain, nausea, vomiting, bloody stools or diarrhea [] : Denies dysuria or hematuria [] Musculoskeletal: Denies back pain or joint pain [] Integument: Denies rash or skin lesions [] Neurologic: Denies headache, focal weakness or sensory changes, reports confusion[] Endocrine: Denies polyuria or polydipsia [] All other systems were reviewed and found to be within normal limits, except as documented in this note. Current Medications Current Medications Current Medications Medications (Trade) Dose Ordered Sig/Jacobo Start Time Stop Time Status Last Admin Dose Admin Fentanyl Citrate (Fentanyl 2ml Vial) 50 mcg 1X ONCE 08/06/17 12:30 08/06/17 12:31 DC 08/06/17 12:52 50 MCG Info (Do NOT chart on this entry -- for MONITORING) 1 each PRN DAILY PRN 08/06/17 12:45 08/08/17 12:44 Iohexol (Omnipaque 300 Mg/ml) 75 ml 1X ONCE 08/06/17 12:45 08/06/17 12:46 DC Lorazepam (Ativan) 1 mg 1X ONCE 08/06/17 13:45 08/06/17 13:46 DC 08/06/17 14:10 1 MG Piperacillin Sod/ Tazobactam Sod (Zosyn) 3.375 gm STK-MED ONCE 08/06/17 13:56 08/06/17 13:57 DC Piperacillin Sod/ Tazobactam Sod 3.375 gm/Sodium Chloride 50 ml @ 100 mls/hr 1X ONCE 08/06/17 13:45 08/06/17 14:14 DC 08/06/17 14:15 100 MLS/HR Sodium Chloride 50 ml @ As Directed STK-MED ONCE 08/06/17 13:56 08/06/17 13:57 DC Vancomycin HCl 1 gm/Sodium Chloride 250 ml @ 250 mls/hr 1X ONCE 08/06/17 13:30 08/06/17 14:29 UNV Vancomycin HCl 2 gm/Sodium Chloride 500 ml @ 250 mls/hr 1X ONCE 08/06/17 13:45 08/06/17 15:44 Allergies Allergies Allergies Coded Allergies Type Severity Reaction Last Updated Verified No Known Drug Allergies 07/02/17 No Physical Exam Physical Exam Constitutional: Well nourished, mild distress, non-toxic appearance , obese, afebrile. [] HENT: Normocephalic, atraumatic, bilateral external ears normal, oropharynx moist, no oral exudates, nose normal. [] Eyes: PERRLA, EOMI, conjunctiva normal, no discharge. [] Neck: Normal range of motion, no tenderness, supple, no stridor. [] Cardiovascular: Tachycardia, no murmur [] Lungs & Thorax: Right lower chest wall tenderness without crepitation or subcutaneous emphysema, decrease of air movement and mild rhonchi Abdomen: Bowel sounds normal, soft, no tenderness, no masses, no pulsatile masses. [] Skin: Warm, dry, no erythema, no rash. [] Back: No tenderness, no CVA tenderness. [] Extremities: No tenderness, no cyanosis, no clubbing, ROM intact, trace edema. [ ] Neurologic: Alert and oriented X 3, normal motor function, normal sensory function, no focal deficits noted. [] Psychologic: Anxious Current Patient Data Vital Signs Vital Signs Date Time Temp Pulse Resp B/P (MAP) Pulse Ox O2 Delivery O2 Flow Rate FiO2 1/27/18 13:45 98.9 112 18 129/69 (89) 97 Nasal Cannula 5.0 Lab Results Laboratory Tests Test 08/06/17 12:22 08/06/17 12:23 08/06/17 12:49 White Blood Count 18.0 x10^3/uL (4.0-11.0) H Red Blood Count 5.14 x10^6/uL (4.30-5.70) Hemoglobin 15.2 g/dL (13.0-17.5) Hematocrit 44.8 % (39.0-53.0) Mean Corpuscular Volume 87 fL (79-100) Mean Corpuscular Hemoglobin 30 pg (25-35) Mean Corpuscular Hemoglobin Concent 34 g/dL (31-37) Red Cell Distribution Width 14.1 % (11.5-14.5) Platelet Count 441 x10^3/uL (140-400) H Neutrophils (%) (Auto) 85 % (31-73) H Lymphocytes (%) (Auto) 10 % (24-48) L Monocytes (%) (Auto) 4 % (0-9) Eosinophils (%) (Auto) 0 % (0-3) Basophils (%) (Auto) 1 % (0-3) Neutrophils # (Auto) 15.3 x10^3uL (1.8-7.7) H Lymphocytes # (Auto) 1.9 x10^3/uL (1.0-4.8) Monocytes # (Auto) 0.7 x10^3/uL (0.0-1.1) Eosinophils # (Auto) 0.0 x10^3/uL (0.0-0.7) Basophils # (Auto) 0.2 x10^3/uL (0.0-0.2) Segmented Neutrophils % 82 % (35-66) H Band Neutrophils % 2 % (0-9) Lymphocytes % 10 % (24-48) L Monocytes % 6 % (0-10) Eosinophils % 0 % (0-5) Basophils % 0 % (0-3) Platelet Estimate Increased (ADEQUATE) Large Platelets Present Prothrombin Time 12.3 SEC (9.4-11.4) H Prothrombin Time INR 1.2 (0.9-1.1) H PTT 26 SEC (23-33) Sodium Level 136 mmol/L (136-145) Potassium Level 3.8 mmol/L (3.5-5.1) Chloride Level 96 mmol/L (98-107) L Carbon Dioxide Level 29 mmol/L (21-32) Anion Gap 11 (6-14) Blood Urea Nitrogen 27 mg/dL (8-26) H Creatinine 1.5 mg/dL (0.7-1.3) H Estimated GFR (Cockcroft-Gault) 46.5 BUN/Creatinine Ratio 18 (6-20) Glucose Level 345 mg/dL (70-99) H Calcium Level 9.6 mg/dL (8.5-10.1) Magnesium Level 1.6 mg/dL (1.8-2.4) L Total Bilirubin 0.4 mg/dL (0.2-1.0) Aspartate Amino Transferase (AST) 13 U/L (15-37) L Alanine Aminotransferase (ALT) 19 U/L (16-63) Alkaline Phosphatase 118 U/L (46-116) H Creatine Kinase 84 U/L (39-308) Creatine Kinase MB (Mass) 1.5 ng/mL (0.0-3.6) Creatine Kinase MB Relative Index 1.8 % (0-4) Troponin I Quantitative < 0.017 ng/mL (0-0.055) IL-Ppy-L-Type Natriuretic Peptide 745 pg/mL (0-124) H Total Protein 8.3 g/dL (6.4-8.2) H Albumin 3.3 g/dL (3.4-5.0) L Albumin/Globulin Ratio 0.7 (1.0-1.7) L Lactic Acid Level 3.1 mmol/L (0.4-2.0) H Glucose (Fingerstick) 320 mg/dL (70-99) H EKG EKG [EKG interpreted by me. EKG at 1211 showed sinus tachycardia at rate of 119, otherwise nonspecific EKG Radiology/Procedures Radiology/Procedures []PATIENT: LILIA BENDER ACCOUNT: [id number] : 1950 LOCATION: ER AGE: 67 SEX: M EXAM STATUS: REG ER ORD. PHYSICIAN: MJ ROLLINS MD REASON: right-sided chest pain and fall PROCEDURE: CT ANGIOGRAPHY CHEST Indication: Short of air and right-sided chest pain. Technique: Axial images and coronal and sagittal reformatted images are provided. Coronal maximum intensity projection reformatted images are provided. 70 mL of intravenous Omnipaque 300 was administered without complication. Comparison is a chest radiograph from July 05, 2017. One or more of the following individualized dose reduction techniques were utilized for this examination: 1. Automated exposure control 2. Adjustment of the mA and/or kV according to patient size 3. Use of iterative reconstruction technique Findings: The contrast bolus is satisfactory. There is no filling defect to suggest pulmonary embolism. There is no aortic aneurysm or dissection. There is atheromatous disease in the thoracic aorta. Heart is not enlarged. Coronary artery calcifications are noted. There is no hilar or mediastinal adenopathy. Subcentimeter short axis lymph nodes are noted with normal fatty notches. Central airways are patent. There is no pleural effusion. There is emphysema which is mild to moderate and has upper lobe predominance. There is consolidation along the major fissure within the right upper lobe. There is nodularity with tree-in-bud distribution in the right lower lobe. These findings correspond to the areas of concern on previous chest radiograph. There is dependent atelectasis. There is cholelithiasis. There is no adrenal mass. Impression: 1. Negative for pulmonary embolism. 2. Consolidation in the right upper lobe compatible with pneumonia. 3. Nodularity with tree-in-bud distribution in the right lower lobe most notably, nonspecific but also frequently infectious in etiology. Atypical infection can be considered. Follow-up would be of benefit. 4. Emphysema. DICTATED AND SIGNED BY: ROWDY CLAYTON MD DATE: 08/06/17 [id number] CC: ROBIN ESPARZA MD; MJ ROLLINS MD ~ Course & Med Decision Making Course & Med Decision Making Pertinent Labs and Imaging studies reviewed. (See chart for details) Evaluation of patient in ER showed 67-year-old male patient with complaining of right lower chest wall after a fall suffered from primary care physician for evaluation. Patient had tachycardia and right chest wall tenderness without fever or hypotension. Patient refused to have pain medication and CT chest and head CT but later on agreed to have fentanyl and CT of chest. Labs showed leukocytosis and elevation of lactic acid and BUN/creatinine and blood sugar. Patient treated with IV fluids for sepsis and Zosyn and vancomycin was given in ER. CT of chest did not show PE but showed right upper lobe infiltration. Plan to admit patient to telemetry bed and continue treatment for sepsis and age. Dr. Esparza informed at 1431 and agreed with plan of care and admitting the patient. Dragon Disclaimer Dragon Disclaimer This electronic medical record was generated, in whole or in part, using a voice recognition dictation system. Departure Departure: Impression: Primary Impression: HCAP (healthcare-associated pneumonia) Additional Impressions: Sepsis Chest wall pain Renal insufficiency Uncontrolled diabetes mellitus Leukocytosis Noncompliance by refusing service Disposition: 09 ADMITTED INPATIENT (At 1431) Admitting Physician: Robin Esparza Condition: IMPROVED Referrals: ROBIN ESPARZA MD (PCP) Critical Care Note Total Time (mins): 80 Problem Qualifiers MJ ROLLINS MD Aug 06, 2017 14:55
[2017-08-06] MEDS ORDERED: PRED20TA PO (16:17)
[2017-08-06 16:59] VITALS: BP 165/91
[2017-08-06] MEDS: INSULIN ASPART 300 UNITS/3 ML INSULN.PEN SQ SCH ×2 (17:42→21:00)
[2017-08-06] MEDS: PIPERACILLIN/TAZOBACTAM 4.5 GM in IV NORMAL SALINE 50ML 50 ML IV SCH (17:53)
[2017-08-06] MEDS: VANCOMYCIN PER PHARMACY MC PRN (17:54)
[2017-08-06 19:00] VITALS: BP 123/70
--- NOTE | 2017-08-06 19:58 | EKG ---
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
[2017-08-06] MEDS: IPRATRPIUM/ALBUTEROL 0.5/2.5MG 3 ML NEBU. NEB SCH (20:36)
[2017-08-06] MEDS: LACTOBACILLUS RHAMNOSUS GG 1 CAPSULE. PO SCH (20:40)
[2017-08-06] MEDS: PANTOPRAZOLE 40 MG TABLET. PO SCH (20:40)
[2017-08-06] MEDS: buPROPion XL 150 MG TAB.ER.24H PO SCH (20:41)
[2017-08-06] MEDS: PRAVASTATIN 20 MG TABLET. PO SCH (20:41)
[2017-08-06] MEDS: GABAPENTIN 300 MG CAPSULE. PO SCH (20:41)
[2017-08-06] MEDS: DOXYCYCLINE HYCLATE 100 MG TABLET PO SCH (20:41)
[2017-08-06] MEDS ORDERED: DOXYCYCLINE HYCLATE 100 MG TABLET PO SCH (21:00)
[2017-08-06] MEDS ORDERED: INSULIN ASPART 300 UNITS/3 ML INSULN.PEN SQ ONE (21:30)
[2017-08-06] MEDS: INSULIN DETEMIR 300 UNITS/3 ML INSULN.PEN. SQ SCH (21:32)
[2017-08-06 23:00] VITALS: BP 129/69
[2017-08-07] MEDS: PIPERACILLIN/TAZOBACTAM 4.5 GM in IV NORMAL SALINE 50ML 50 ML IV SCH ×4 (00:04→18:33)
[2017-08-07] MEDS: LORazepam 0.5 MG TABLET PO PRN ×2 (00:21→21:26)
[2017-08-07] MEDS: IV NORMAL SALINE 1,000ML 1,000 ML IV SCH (00:22)
[2017-08-07 01:18] LABS: INFLUENZA A PATIENT NEGATIVE (NEGATIVE); INFLUENZA B PATIENT NEGATIVE (NEGATIVE)
[2017-08-07 03:11] VITALS: BP 136/75
[2017-08-07] MEDS: IPRATRPIUM/ALBUTEROL 0.5/2.5MG 3 ML NEBU. NEB SCH ×4 (06:25→20:29)
[2017-08-07 06:33] VITALS: BP 140/85
[2017-08-07] MEDS: INSULIN ASPART 300 UNITS/3 ML INSULN.PEN SQ SCH ×7 (08:00→21:00)
[2017-08-07] MEDS: FLUTICASONE 50MCG/NASAL SPRAY 16GM BOTTLE. NS SCH (08:45)
[2017-08-07] MEDS: GABAPENTIN 300 MG CAPSULE. PO SCH ×3 (08:46→21:26)
[2017-08-07] MEDS: predniSONE 20 MG TABLET PO SCH (08:46)
[2017-08-07] MEDS: LACTOBACILLUS RHAMNOSUS GG 1 CAPSULE. PO SCH ×2 (08:46→21:34)
[2017-08-07] MEDS: VITAMIN A 10,000 UNIT CAPSULE. PO SCH (08:46)
[2017-08-07] MEDS: CITALOPRAM 20 MG TABLET. PO SCH (08:46)
[2017-08-07] MEDS: PANTOPRAZOLE 40 MG TABLET. PO SCH ×2 (08:47→21:26)
[2017-08-07] MEDS: CETIRIZINE HCL 10 MG TABLET PO SCH (08:47)
[2017-08-07] MEDS: buPROPion XL 150 MG TAB.ER.24H PO SCH ×2 (08:47→21:26)
[2017-08-07] MEDS: DOXYCYCLINE HYCLATE 100 MG TABLET PO SCH ×2 (08:49→21:26)
[2017-08-07 10:02] LABS: BASO # 0.1 x10^3/uL (0.0-0.2); BASO % 1 % (0-3); EOS # 0.2 x10^3/uL (0.0-0.7); EOS % 2 % (0-3); HEMATOCRIT 39.1 % (39.0-53.0); HEMOGLOBIN 13.2 g/dL (13.0-17.5); LYMPH # 1.3 x10^3/uL (1.0-4.8); LYMPH % 14 % (24-48); MEAN CORPUSCULAR HEMOGLOBIN 30 pg (25-35); MEAN CORPUSCULAR HGB CONC 34 g/dL (31-37); MEAN CORPUSCULAR VOLUME 88 fL (79-100); MONO # 0.6 x10^3/uL (0.0-1.1); MONO % 6 % (0-9); NEUT # 6.9 x10^3uL (1.8-7.7); NEUT % 77 % (31-73); PLATELET COUNT 348 x10^3/uL (140-400); RED BLOOD COUNT 4.46 x10^6/uL (4.30-5.70); RED CELL DISTRIBUTION WIDTH 14.1 % (11.5-14.5); WHITE BLOOD COUNT 8.9 x10^3/uL (4.0-11.0)
[2017-08-07] MEDS: LISINOPRIL 20 MG TABLET PO SCH (10:34)
[2017-08-07 10:35] VITALS: BP 137/82
[2017-08-07 10:37] LABS: CALCIUM 8.6 mg/dL (8.5-10.1); CREATININE 1.3 mg/dL (0.7-1.3); GFR 54.9; POTASSIUM 3.5 mmol/L (3.5-5.1)
[2017-08-07] MEDS: VANCOMYCIN 1.75 GM in IV NORMAL SALINE 500ML 500 ML IV SCH (15:00)
[2017-08-07 15:52] VITALS: BP 134/66
[2017-08-07] MEDS: HYDROcodone/APAP 7.5/325MG 1 TAB TABLET PO PRN (19:20)
[2017-08-07 19:44] VITALS: BP 142/83
[2017-08-07] MEDS: PRAVASTATIN 20 MG TABLET. PO SCH (21:26)
[2017-08-07] MEDS: INSULIN DETEMIR 300 UNITS/3 ML INSULN.PEN. SQ SCH (21:34)
[2017-08-07 23:16] VITALS: BP 153/86
[2017-08-08] MEDS: PIPERACILLIN/TAZOBACTAM 4.5 GM in IV NORMAL SALINE 50ML 50 ML IV SCH ×5 (00:22→23:57)
--- NOTE | 2017-08-08 03:20 | HP ---
ADMIT DATE: 08/06/2017 HISTORY OF PRESENT ILLNESS: The patient is a 67-year-old male who came in with acute exacerbation of COPD, pneumonia of unspecified etiology at the present time. The patient was doing well for the last month since his prior problems and came in through the Emergency Room. He has been on and off oxygen ____. His white count was 18,000, hemoglobin and hematocrit 15 and 44. The patient was admitted because of this elevated white count and chest x-ray or a CTA of the chest demonstrated a new consolidation in his right upper lobe, which was not there presently or previously. The patient's pulse was over 110 and he appeared to be septic. He was on 5 liters of oxygen. As a result of this, the patient was admitted to the hospital for acute exacerbation of COPD as he was having trouble breathing and pneumonia of unspecified etiology. PAST MEDICAL HISTORY: He has had COPD, depression, hypertension, hyperlipidemia, type 2 diabetes, appendectomy, sleep apnea and bilateral knee surgery. He is up to date on pneumococcal and influenza vaccinations. SOCIAL HISTORY: The patient denies smoking, alcohol or drug use. FAMILY HISTORY: Unremarkable or noncontributory. ALLERGIES: No known drug allergies. MEDICATIONS INCLUDE: Bupropion XL 150 b.i.d., Zyrtec, doxycycline 100 mg p.o. b.i.d., Lexapro 10, Nexium 40 daily, Flonase nasal spray, Neurontin 300 t.i.d., insulin NovoLog 15 units subcutaneously, Lantus 50 units at bedtime, lisinopril 20, Lorazepam 0.5, Pravastatin 20, prednisone 20, vitamin A. FAMILY HISTORY: Noncontributory. SOCIAL HISTORY: The patient has a previous history of smoking, but nothing in the last 5-10 years. The patient denies chewing tobacco, hard drug use. Occasional alcohol, very rarely. . REVIEW OF SYSTEMS: Positive for shortness of breath, chest pain in the sense that he has trouble breathing. He denies any nausea, vomiting. He does have some diaphoresis and chills. PHYSICAL EXAMINATION: GENERAL: This is an ill-appearing white male, moderate amount of distress. VITAL SIGNS: Blood pressure 130/70, respiratory rate 18, pulse 115, temperature 98.9, oxygen saturation on 5 liters 97%. HEENT: The patient's head was atraumatic, normocephalic. Eyes: PERRLA without jaundice. He has a mole on his left neck area, approximately 2 cm x 1.5. LUNGS: Anyway, lungs are diminished throughout, poor movement of air crackles noted in the bases. CARDIOVASCULAR: Regular sinus rhythm, S1, S2, without murmur, rub, thrill, or extra heart sounds. ABDOMEN: Soft, nontender, no rebound or guarding. Positive bowel sounds, no hepatosplenomegaly was noted. EXTREMITIES: No clubbing, cyanosis, nor edema. NEUROLOGIC: The patient was alert and oriented x 3. Speech fluent, spontaneous, appropriate. Cranial nerves 2-12 are grossly intact. IMPRESSION: Acute exacerbation of chronic obstructive pulmonary disease; pneumonia of unspecified etiology, community acquired; acute respiratory failure; type 2 diabetes; obesity. We will continue to monitor the patient accordingly, make further evaluation on him, IV antibiotic therapy include Zosyn, vancomycin and continue on his vibramycin and make further evaluation on him as sputum, blood cultures and other tests are returned back. ROBIN ESPARZA MD DR: DOMONIQUE/sanam JOB#: [id number] / [id number]
[2017-08-08 05:21] VITALS: BP 159/91
[2017-08-08] MEDS: IPRATRPIUM/ALBUTEROL 0.5/2.5MG 3 ML NEBU. NEB SCH ×4 (05:33→20:00)
[2017-08-08 07:02] LABS: BASO # 0.1 x10^3/uL (0.0-0.2); BASO % 1 % (0-3); CALCIUM 8.5 mg/dL (8.5-10.1); CREATININE 1.1 mg/dL (0.7-1.3); EOS # 0.2 x10^3/uL (0.0-0.7); EOS % 2 % (0-3); GFR 66.6; HEMATOCRIT 37.9 % (39.0-53.0); HEMOGLOBIN 12.6 g/dL (13.0-17.5); LYMPH # 2.1 x10^3/uL (1.0-4.8); LYMPH % 21 % (24-48); MEAN CORPUSCULAR HEMOGLOBIN 29 pg (25-35); MEAN CORPUSCULAR HGB CONC 33 g/dL (31-37); MEAN CORPUSCULAR VOLUME 88 fL (79-100); MONO # 0.7 x10^3/uL (0.0-1.1); MONO % 7 % (0-9); NEUT # 6.9 x10^3uL (1.8-7.7); NEUT % 69 % (31-73); PLATELET COUNT 315 x10^3/uL (140-400); POTASSIUM 3.6 mmol/L (3.5-5.1); RED BLOOD COUNT 4.29 x10^6/uL (4.30-5.70); RED CELL DISTRIBUTION WIDTH 14.2 % (11.5-14.5); WHITE BLOOD COUNT 9.9 x10^3/uL (4.0-11.0)
[2017-08-08] MEDS: VITAMIN A 10,000 UNIT CAPSULE. PO SCH (08:05)
[2017-08-08] MEDS: PANTOPRAZOLE 40 MG TABLET. PO SCH ×2 (08:05→20:12)
[2017-08-08] MEDS: DOXYCYCLINE HYCLATE 100 MG TABLET PO SCH ×2 (08:06→20:12)
[2017-08-08] MEDS: LACTOBACILLUS RHAMNOSUS GG 1 CAPSULE. PO SCH ×2 (08:06→20:12)
[2017-08-08] MEDS: CETIRIZINE HCL 10 MG TABLET PO SCH (08:06)
[2017-08-08] MEDS: buPROPion XL 150 MG TAB.ER.24H PO SCH ×2 (08:06→20:12)
[2017-08-08] MEDS: CITALOPRAM 20 MG TABLET. PO SCH (08:07)
[2017-08-08] MEDS: GABAPENTIN 300 MG CAPSULE. PO SCH ×3 (08:07→20:13)
[2017-08-08] MEDS: FLUTICASONE 50MCG/NASAL SPRAY 16GM BOTTLE. NS SCH (08:07)
[2017-08-08] MEDS: LISINOPRIL 20 MG TABLET PO SCH (08:07)
[2017-08-08] MEDS: predniSONE 20 MG TABLET PO SCH (08:07)
[2017-08-08] MEDS: INSULIN ASPART 300 UNITS/3 ML INSULN.PEN SQ SCH ×7 (08:14→20:14)
[2017-08-08] MEDS: HYDROcodone/APAP 7.5/325MG 1 TAB TABLET PO PRN (10:10)
[2017-08-08 10:48] VITALS: BP 152/83
--- NOTE | 2017-08-08 11:43 | RAD ---
2 view CXR: Clinical indications: Follow-up of pneumonia. Comparison: July 05, 2017. Findings: There has been resolution of the interstitial lung infiltrate or bronchitis on the right side and resolution of the lateral right lung base infiltrate seen previously. Mild persistent left lung base interstitial and nodular lung infiltrate is seen which is unchanged. No pleural effusion is seen today. No pneumothorax is evident. The heart size, pulmonary vasculature, mediastinum and both dimple are unremarkable. The osseous structures appear intact. Impression: Resolution of lung infiltrate on the right side. Stable mild residual interstitial and nodular lung infiltrate of the left lung base..
[2017-08-08 14:41] LABS: VANC TR 7.8 mcg/mL (10.0-20.0)
[2017-08-08] MEDS: VANCOMYCIN 1.75 GM in IV NORMAL SALINE 500ML 500 ML IV SCH ×2 (15:00→16:08)
[2017-08-08 15:06] VITALS: BP 135/84
[2017-08-08] MEDS: VANCOMYCIN PER PHARMACY MC PRN (16:22)
[2017-08-08] MEDS: LORazepam 0.5 MG TABLET PO PRN (20:12)
[2017-08-08] MEDS: PRAVASTATIN 20 MG TABLET. PO SCH (20:13)
[2017-08-08] MEDS: INSULIN DETEMIR 300 UNITS/3 ML INSULN.PEN. SQ SCH (20:14)
[2017-08-08 21:22] VITALS: BP 190/94
[2017-08-08 21:30] VITALS: BP 154/81
[2017-08-09] VITALS: BP 152/85
[2017-08-09] MEDS: VANCOMYCIN 1.75 GM in IV NORMAL SALINE 500ML 500 ML IV SCH (03:30)
[2017-08-09] MEDS: PIPERACILLIN/TAZOBACTAM 4.5 GM in IV NORMAL SALINE 50ML 50 ML IV SCH ×2 (05:45→12:24)
[2017-08-09 05:50] VITALS: BP 147/91
[2017-08-09] MEDS: IPRATRPIUM/ALBUTEROL 0.5/2.5MG 3 ML NEBU. NEB SCH ×2 (05:50→10:01)
[2017-08-09] MEDS: HYDROcodone/APAP 7.5/325MG 1 TAB TABLET PO PRN (08:02)
[2017-08-09] MEDS: INSULIN ASPART 300 UNITS/3 ML INSULN.PEN SQ SCH ×4 (08:08→12:36)
[2017-08-09] MEDS: FLUTICASONE 50MCG/NASAL SPRAY 16GM BOTTLE. NS SCH (08:49)
[2017-08-09] MEDS: VITAMIN A 10,000 UNIT CAPSULE. PO SCH (08:49)
[2017-08-09] MEDS: DOXYCYCLINE HYCLATE 100 MG TABLET PO SCH (08:50)
[2017-08-09] MEDS: PANTOPRAZOLE 40 MG TABLET. PO SCH (08:50)
[2017-08-09] MEDS: predniSONE 20 MG TABLET PO SCH (08:50)
[2017-08-09] MEDS: buPROPion XL 150 MG TAB.ER.24H PO SCH (08:50)
[2017-08-09] MEDS: CETIRIZINE HCL 10 MG TABLET PO SCH (08:50)
[2017-08-09] MEDS: LACTOBACILLUS RHAMNOSUS GG 1 CAPSULE. PO SCH (08:50)
[2017-08-09] MEDS: CITALOPRAM 20 MG TABLET. PO SCH (08:50)
[2017-08-09] MEDS: GABAPENTIN 300 MG CAPSULE. PO SCH ×2 (08:50→14:23)
[2017-08-09] MEDS: LISINOPRIL 20 MG TABLET PO SCH (08:50)
[2017-08-09 11:34] VITALS: BP 146/88
[2017-08-09] MEDS ORDERED: CEFU250S PO (13:57)
[2017-08-09 14:47] VITALS: BP 149/85
--- NOTE | 2017-08-09 15:43 | PN ---
DATE: 08/08/2017 SUBJECTIVE: A 67-year-old male in with sepsis, consolidations in his lungs. The patient is receiving antibiotic therapy. The patient otherwise resting fairly comfortably, says he is feeling much better, resolution of the lung infiltrate per x-ray. Still some nodular lung infiltrate of the left lung base present. Continue on IV antibiotic therapy. Make further evaluation there. OBJECTIVE: VITAL SIGNS: Blood pressure 130/80, respiratory 20, pulse 80, afebrile. GENERAL: The patient alert and oriented x 3. NEUROLOGIC: Speech fluent, spontaneous, appropriate. LUNGS: Diminished, but clear. CARDIOVASCULAR: Regular sinus rhythm, S1, S2. ABDOMEN: Soft, nontender, no rebounding or guarding. Positive bowel sounds. IMPRESSION: Pneumonia, sepsis. PLAN: As above. ROBIN ESPARZA MD DR: DOMONIQUE/sanam JOB#: [id number] / [id number]
== END 2017-08-09 15:30 | disposition home or self-care (01) | DRG 871 ==
LOC: ER 11:59 → ICU 14:35 → 1 SOUTH 08-07 12:18
PROVIDERS: ADMIT Family Medicine; ATTEND Family Medicine
DX: A41.9 Sepsis, unspecified organism (principal); J18.9 Pneumonia, unspecified organism; J96.00 Acute respiratory failure, unspecified whether with hypoxia or hypercapnia; J44.0 Chronic obstructive pulmonary disease with (acute) lower respiratory infection; J44.1 Chronic obstructive pulmonary disease with (acute) exacerbation; E11.65 Type 2 diabetes mellitus with hyperglycemia; E66.9 Obesity, unspecified; E78.5 Hyperlipidemia, unspecified; G47.30 Sleep apnea, unspecified; I10 Essential (primary) hypertension; N28.9 Disorder of kidney and ureter, unspecified; F32.9 Major depressive disorder, single episode, unspecified; Y95 Nosocomial condition; Z96.659 Presence of unspecified artificial knee joint; Z79.4 Long term (current) use of insulin; Z68.34 Body mass index [BMI] 34.0-34.9, adult; Z87.891 Personal history of nicotine dependence; Z90.49 Acquired absence of other specified parts of digestive tract; Z91.19 Patient's noncompliance with other medical treatment and regimen; Z99.81 Dependence on supplemental oxygen; Z79.899 Other long term (current) drug therapy
CPT/HCPCS: 36415; 71046; 71275; 80048; 80053; 80202; 82553; 82947; 83605; 83735; 83880; 84484; 85007; 85025; 85610; 85730; 86738; 87449; 87641; 87804; 93005; 94640; 96365; 96368; 96375; 99292; J1815; J2060; J2543; J3010; J3370; J7040; J7512; J7620; 99291-25; J7030

== ENCOUNTER → 2017-10-11 | Outpatient (CLI) | payer MEDICARE, BC ==
[~2017-10-11] MED LIST changes: +CEFU250S PO; +PRED20TA PO
--- NOTE | 2017-10-11 11:11 | RAD ---
CT CHEST WO CONTRAST Indication: FOLLOW UP PNEUMONIA Exposure: One or more of the following individualized dose reduction techniques were utilized for this examination: 1. Automated exposure control 2. Adjustment of the mA and/or kV according to patient size 3. Use of iterative reconstruction technique. Comparison: CTA chest August 06, 2017 Contrast: None Limited vascular examination due to noncontrast technique. Aorta is mildly calcified. No evidence of aortic aneurysm. Coronary artery calcifications. No pericardial effusion Mildly enlarged mediastinal lymph nodes as a reactive appearance. This is unchanged. No pathologic lymph node enlargement is seen. Esophagus appears unremarkable No pleural effusion. Thyroid appears unremarkable Lungs demonstrate emphysema. The previously seen right upper lobe consolidation has mostly resolved with only mild residual. Nodularity in the right lower lobe has also improved. No new areas of lung consolidation are identified. There is minimal flat nodule along the right minor fissure measuring 4 mm long axis, unchanged since prior study. Mild nodularity in the right lower lobe laterally, image 76, is unchanged. This measures up to 5 mm. Mild subpleural nodularity in the left lung base is stable. Trachea and central airways are patent. Degenerative changes of the spine. Limited scans through the upper abdomen demonstrate cholelithiasis. IMPRESSION: 1. Improvement in the previously described findings in the right upper lobe and right lower lobe with only mild residual. 2. Other areas of mild nodularity in the right lung are stable. 3. No new acute findings. 4. Cholelithiasis. Electronically signed by: Jacoby Vazquez MD (10/11/2017 11:08 AM) [id number]
== END | disposition home or self-care (01) ==
LOC: CT 09:52
PROVIDERS: ATTEND Nurse Practitioner Family
DX: J44.0 Chronic obstructive pulmonary disease with (acute) lower respiratory infection (principal); K80.20 Calculus of gallbladder without cholecystitis without obstruction; E78.00 Pure hypercholesterolemia, unspecified; E11.42 Type 2 diabetes mellitus with diabetic polyneuropathy; E11.65 Type 2 diabetes mellitus with hyperglycemia; Z79.899 Other long term (current) drug therapy; Z79.4 Long term (current) use of insulin
CPT/HCPCS: 71250

== ENCOUNTER → 2018-07-28 | Outpatient (CLI) | payer MEDICARE, BC ==
--- NOTE | 2018-07-28 15:15 | RAD ---
Examination: CT of the abdomen pelvis without contrast HISTORY: History of left flank pain with hematuria COMPARISON: None available TECHNIQUE: Axial CT images of the abdomen pelvis were performed without contrast. Cholecystectomy, so performed Exposure: One or more of the following individualized dose reduction techniques were utilized for this examination: 1. Automated exposure control 2. Adjustment of the mA and/or kV according to patient size 3. Use of iterative reconstruction technique FINDINGS: Minimal bibasilar lung interstitial prominence likely chronic interstitial changes. The evaluation of the solid organs is limited due to lack of IV contrast. Evaluation of bowel is limited due to lack of oral contrast. The visualized noncontrasted liver, spleen, adrenals grossly appears unremarkable. The gallbladder is mildly distended. Gallstone identified in the gallbladder. The stomach is mildly distended. The visualized pancreas demonstrates mild atrophic changes. Small bowel is nondilated. Feces and gas noted in the colon. Multiple sigmoid colon diverticulosis identified. Postsurgical changes of appendectomy. Horseshoe kidney identified with mild fat stranding identified about the kidneys. No evidence of hydronephrosis. Urinary bladder is mildly distended. Moderate aortic atherosclerosis. Moderate degenerative changes lumbar spine. Small fat-containing umbilical hernia. IMPRESSION: 1. Horseshoe kidney identified with minimal surrounding fat stranding could be due to medical renal disease or urinary tract infection. Correlate with lab values. 2. Cholelithiasis. 3. Sigmoid colon diverticulosis. Electronically signed by: Ravinder Corbett MD (07/28/2018 3:10 PM) [id number]
== END | disposition home or self-care (01) ==
LOC: CT 14:32
PROVIDERS: ATTEND Nurse Practitioner Family
DX: Q63.1 Lobulated, fused and horseshoe kidney (principal); K80.20 Calculus of gallbladder without cholecystitis without obstruction; K57.30 Diverticulosis of large intestine without perforation or abscess without bleeding; K42.9 Umbilical hernia without obstruction or gangrene; I70.0 Atherosclerosis of aorta
CPT/HCPCS: 74176

== ENCOUNTER → 2019-11-19 | Outpatient (CLI) | payer MEDICARE, BC ==
[~2019-11-19] MED LIST changes: +IOHEXOL 350 MG/ML 100 ML VIAL. IV ONE
--- NOTE | 2019-11-19 13:01 | RAD ---
Examination: CT angiography chest with IV contrast. HISTORY: History of elevated d-dimer COMPARISON: 08/06/2017 TECHNIQUE: Axial CT angiographic images of chest were performed with IV contrast. Coronal and sagittal 3-D MIP reformats are performed Exposure: One or more of the following individualized dose reduction techniques were utilized for this examination: 1. Automated exposure control 2. Adjustment of the mA and/or kV according to patient size 3. Use of iterative reconstruction technique Findings: The visualized thyroid gland grossly appears unremarkable. Few small mediastinal lymph nodes are unchanged. Coronary artery calcifications. Small bilateral hilar lymph nodes identified with the largest measuring 1.6 cm in the right. There is no evidence of filling defect identified in the main pulmonary arterial trunk and right and left main pulmonary arteries and the visualized lobar, segmental branch of the pulmonary arteries. Moderate bilateral lung emphysematous changes. Small 3 mm nodule identified in the right middle lobe lung abutting the pleura. Mild bibasilar lung airspace opacities. The visualized liver, spleen, adrenals grossly appears unremarkable. Moderate degenerative changes thoracic spine. IMPRESSION: 1. No evidence of pulmonary embolism. 2. Bibasilar lung airspace opacities likely atelectasis or infiltrates. Follow-up to resolution. Small mediastinal and hilar lymphadenopathy identified probably reactive lymphadenopathy. 3. 3 mm nodule identified in the right middle lobe of the lung. Electronically signed by: Ravinder Corbett MD (11/19/2019 12:58 PM) [id number]
== END | disposition home or self-care (01) ==
LOC: CT 12:04
PROVIDERS: ATTEND Family Medicine
DX: R91.1 Solitary pulmonary nodule (principal); I25.10 Atherosclerotic heart disease of native coronary artery without angina pectoris; J43.9 Emphysema, unspecified; R59.0 Localized enlarged lymph nodes; M47.814 Spondylosis without myelopathy or radiculopathy, thoracic region
CPT/HCPCS: 71275; Q9967

== ENCOUNTER 2020-07-08 16:17 | Inpatient (IN) | payer MEDICARE, BC ==
[~2020-07-08] VITALS: Ht 177.8 cm; Wt 107.0 kg
[~2020-07-08 16:17] MED LIST changes: -IOHEXOL 350 MG/ML 100 ML VIAL. IV ONE; +LORA0.5T21 PO; -LORA0.5T96 PO
[2020-07-08 17:23] VITALS: BP 153/82
[2020-07-08] MEDS ORDERED: LORazepam 0.5 MG TABLET PO PRN (17:45)
--- NOTE | 2020-07-08 18:00 | NUR ---
The patient, LILIA BENDER, 70 y/o, M admitted by ROBIN ESPARZA MD, was given written information regarding hospital policies, unit procedures and contact persons. Valuables were checked and VS taken, please see chart.
[2020-07-08 18:43] LABS: BASO # 0.1 x10^3/uL (0.0-0.2); BASO % 1 % (0-3); EOS # 0.3 x10^3/uL (0.0-0.7); EOS % 3 % (0-3); HEMATOCRIT 42.4 % (39.0-53.0); HEMOGLOBIN 13.8 g/dL (13.0-17.5); LYMPH # 0.9 x10^3/uL (1.0-4.8); LYMPH % 11 % (24-48); MEAN CORPUSCULAR HEMOGLOBIN 30 pg (25-35); MEAN CORPUSCULAR HGB CONC 33 g/dL (31-37); MEAN CORPUSCULAR VOLUME 92 fL (79-100); MONO # 0.5 x10^3/uL (0.0-1.1); MONO % 7 % (0-9); NEUT # 6.6 x10^3uL (1.8-7.7); NEUT % 79 % (31-73); PLATELET COUNT 310 x10^3/uL (140-400); RED BLOOD COUNT 4.59 x10^6/uL (4.30-5.70); RED CELL DISTRIBUTION WIDTH 14.8 % (11.5-14.5); WHITE BLOOD COUNT 8.4 x10^3/uL (4.0-11.0)
[2020-07-08 18:52] LABS: ALBUMIN 2.6 g/dL (3.4-5.0); ALBUMIN/GLOBULIN RATIO 0.7 (1.0-1.7); CALCIUM 8.2 mg/dL (8.5-10.1); CREATININE 1.3 mg/dL (0.7-1.3); GFR 54.4; POTASSIUM 4.5 mmol/L (3.5-5.1); TOTAL BILIRUBIN 0.2 mg/dL (0.2-1.0); TOTAL PROTEIN 6.2 g/dL (6.4-8.2)
--- NOTE | 2020-07-08 19:02 | RAD ---
CT HEAD INDICATION: Syncope, dizziness COMPARISON: None Available. Exposure: One or more of the following individualized dose reduction techniques were utilized for thi s examination: 1. Automated exposure control 2. Adjustment of the mA and/or kV according to patient size 3. Use of iterative reconstruction technique TECHNIQUE: 5 mm contiguous axial images were obtained from the skull base to the vertex in both bone and soft tissue algorithm. FINDINGS: Mild bilateral periventricular white matter hypodensities likely chronic small vessel ischemic diseas e. No evidence of acute intracranial hemorrhage. No extra-axial fluid collections. No mass effect or midline shift. Ventricular size is appropriate. Basal cisterns are patent. No fractures identified.Coyne-white differentiation is preserved.Globes and orbits are within normal l imits. Paranasal sinuses and mastoid air cells are clear. IMPRESSION: No acute intracranial findings. Electronically signed by: Ravinder Corbett MD (07/08/2020 6:59 PM) [id number]
[2020-07-08 19:45] VITALS: BP 110/65
--- NOTE | 2020-07-08 19:46 | RAD ---
Exam: Chest 2 views INDICATION: Syncope TECHNIQUE: Frontal and lateral views the chest Comparisons: 08/08/2017 FINDINGS: The cardiomediastinal silhouette and pulmonary vessels are within normal limits. Patchy airspace disease at the mid and lower lungs bilaterally. No pleural effusion. IMPRESSION: Patchy bibasilar airspace disease may be infectious or inflammatory in etiology. Electronically signed by: David Tony MD (07/08/2020 7:44 PM) HEATHER
[2020-07-08 20:23] LABS: BACTERIA,URINE 0 /HPF (0-FEW); BILIRUBIN,URINE NEG (NEG); CLARITY,URINE CLEAR; COLOR,URINE YELLOW; GLUCOSE,URINE 500 mg/dL (NEG); NITRITE,URINE NEG (NEG); RBC,URINE 0 /HPF (0-2); UROBILINOGEN,URINE 0.2 mg/dL (0.2 mg/dL); WBC,URINE 0 /HPF (0-4)
[2020-07-08] MEDS: ATORVASTATIN CALCIUM 10 MG TABLET. PO SCH (21:05)
[2020-07-08] MEDS: HYDROcodone/APAP 5/325MG 1 TAB TABLET PO PRN (21:05)
[2020-07-08] MEDS: DOXYCYCLINE HYCLATE 100 MG TABLET PO SCH (21:05)
[2020-07-08] MEDS: buPROPion XL 150 MG TAB.ER.24H PO SCH (21:05)
[2020-07-08] MEDS: PANTOPRAZOLE 40 MG TABLET. PO SCH (21:05)
[2020-07-08] MEDS: GABAPENTIN 300 MG CAPSULE. PO SCH (21:05)
[2020-07-08] MEDS: INSULIN GLARGINE SYRINGE. SQ SCH (21:08)
[2020-07-08] MEDS ORDERED: ASPI-630 PO (22:00)
[2020-07-08 22:27] VITALS: BP 164/81
[2020-07-08 22:28] VITALS: BP 162/87
[2020-07-08 22:30] VITALS: BP 98/62
[2020-07-09] VITALS (10 sets, daily range): BP systolic 98–180; BP diastolic 66–99
[2020-07-09] MEDS: HYDROcodone/APAP 5/325MG 1 TAB TABLET PO PRN ×3 (05:37→20:31)
--- NOTE | 2020-07-09 08:01 | PDOC2 ---
CARDIAC CONSULT DATE OF CONSULT DOS: DATE: 07/09/20 TIME: 07:54 REASON FOR CONSULT Reason for Consult Syncope REFERRING PHYSICIAN Referring Physician Dr. Lawson SOURCE Source: Chart review, Patient HPI History of Present Illness This is a 70 yo male who presented as a direct admit from Dr. Lawson secondary to syncope, fall. Patient reports that for the last month, has been significantly dizzy upon standing or when he is standing and begins to ambulate. Has been having falls due to dizziness. Denies any syncope. No chest pain, diaphoresis, palpitations, or nausea/vomiting. No recent cardiac workup. PAST MEDICAL HISTORY Cardiovascular: HTN, hyperipidemia Pulmonary: COPD, Other (ANDRE) GI: GERD Heme/Onc: Cancer (throat ) Endocrine: Diabetes PAST SURGICAL HISTORY Past Surgical History: Appendectomy, Other (bilateral knee surgery ) FAMILY HISTORY Family History: Diabetes, Hypertension SOCIAL HISTORY Smoke: Quit ALCOHOL: none Drugs: None Lives: Alone CURRENT MEDICATIONS Current Medications Current Medications Bupropion HCl (Wellbutrin Xl) 150 mg BID PO Last administered on 07/08/20at 21:05; Start 07/08/20 at 21:00 Cetirizine HCl (ZyrTEC) 10 mg DAILY PO ; Start 07/09/20 at 09:00 Doxycycline Hyclate (Vibra-Tab) 100 mg BID PO Last administered on 07/08/20at 21:05; Start 07/08/20 at 21:00 Gabapentin (Neurontin) 300 mg TID PO Last administered on 07/08/20at 21:05; Start 07/08/20 at 21:00 Lisinopril (Prinivil) 20 mg DAILY PO ; Start 07/09/20 at 09:00 Lorazepam (Ativan) 0.5 mg PRN TID PRN PO ANXIETY / AGITATION; Start 07/08/20 at 17:45 Prednisone (Prednisone) 20 mg DAILY PO ; Start 07/09/20 at 09:00 Citalopram Hydrobromide (CeleXA) 20 mg DAILY PO ; Start 07/09/20 at 09:00 Pantoprazole Sodium (Protonix) 40 mg BID PO Last administered on 07/08/20at 21:05; Start 07/08/20 at 21:00 Fluticasone Propionate (Flonase) 2 spray DAILY NS ; Start 07/09/20 at 09:00 Insulin Human Lispro (HumaLOG) 15 units TIDWMEALS SQ ; Start 07/09/20 at 08:00 Insulin Glargine (Lantus Syringe) 50 unit QHS SQ Last administered on 07/08/20at 21:08; Start 07/08/20 at 21:00 Atorvastatin Calcium (Lipitor) 5 mg QHS PO Last administered on 07/08/20at 21 :05; Start 07/08/20 at 21:00 Influenza Virus Vaccine Quadrival (Fluzone Quad Syringe) 0.5 ml ONCE ONCE VAX IM ; Start 07/09/20 at 09:00; Stop 07/09/20 at 09:01 Acetaminophen/ Hydrocodone Bitart (Lortab 5/325) 1 tab PRN Q6HRS PRN PO PAIN Last administered on 07/09/20at 05:37; Start 07/08/20 at 21:00 Active Scripts Active Novolog Flexpen (Insulin Aspart) 100 Unit/1 Ml Insuln.pen 15 Units SQ TIDAC 30 Days Reported Aspirin 81 Mg Tab.chew 81 Mg PO DAILY Pravastatin Sodium 20 Mg Tablet 1 Tab PO QHS Escitalopram Oxalate 10 Mg Tablet 1 Tab PO DAILY Cetirizine Hcl 10 Mg Tablet 1 Tab PO DAILY Lantus Solostar (Insulin Glargine,Hum.rec.anlog) 100 Unit/1 Ml Insuln.pen 50 Unit SQ QHS Lisinopril 20 Mg Tablet 1 Tab PO DAILY Bupropion Xl (Bupropion Hcl) 150 Mg Tab.er.24h 1 Tab PO BID Nexium Capsule (Esomeprazole Magnesium) 40 Mg Capsule. 1 Cap PO BID Neurontin (Gabapentin) 300 Mg Capsule 900 Mg PO BID ALLERGIES Allergies: Coded Allergies: No Known Drug Allergies (Unverified , 07/02/17) ROS Review of Systems 14 point ROS conducted with pertinent positives noted above in HPI PHYSICAL EXAM General: Alert, Oriented X3, Cooperative, No acute distress HEENT: Mucous membr. moist/pink Lungs: Clear to auscultation Heart: Regular rate Abdomen: Soft, No tenderness Extremities: No edema, Normal pulses Skin: No breakdown Neuro: Normal speech, Normal tone, Sensation intact Psych/Mental Status: Mental status NL, Mood NL MUSCULOSKELETAL: Osteoarthritic changes both hands VITALS Vital Signs Vital Signs Date Time Temp Pulse Resp B/P (MAP) Pulse Ox O2 Delivery O2 Flow Rate FiO2 07/09/20 06:41 69 168/90 (116) 07/09/20 06:37 18 07/09/20 05:37 Room Air 07/09/20 05:24 97.6 91 LABS LABS Laboratory Tests Test 07/08/20 18:25 07/08/20 19:30 07/08/20 20:15 White Blood Count 8.4 x10^3/uL (4.0-11.0) Red Blood Count 4.59 x10^6/uL (4.30-5.70) Hemoglobin 13.8 g/dL (13.0-17.5) Hematocrit 42.4 % (39.0-53.0) Mean Corpuscular Volume 92 fL (79-100) Mean Corpuscular Hemoglobin 30 pg (25-35) Mean Corpuscular Hemoglobin Concent 33 g/dL (31-37) Red Cell Distribution Width 14.8 % (11.5-14.5) Platelet Count 310 x10^3/uL (140-400) Neutrophils (%) (Auto) 79 % (31-73) Lymphocytes (%) (Auto) 11 % (24-48) Monocytes (%) (Auto) 7 % (0-9) Eosinophils (%) (Auto) 3 % (0-3) Basophils (%) (Auto) 1 % (0-3) Neutrophils # (Auto) 6.6 x10^3uL (1.8-7.7) Lymphocytes # (Auto) 0.9 x10^3/uL (1.0-4.8) Monocytes # (Auto) 0.5 x10^3/uL (0.0-1.1) Eosinophils # (Auto) 0.3 x10^3/uL (0.0-0.7) Basophils # (Auto) 0.1 x10^3/uL (0.0-0.2) Sodium Level 138 mmol/L (136-145) Potassium Level 4.5 mmol/L (3.5-5.1) Chloride Level 104 mmol/L (98-107) Carbon Dioxide Level 28 mmol/L (21-32) Anion Gap 6 (6-14) Blood Urea Nitrogen 17 mg/dL (8-26) Creatinine 1.3 mg/dL (0.7-1.3) Estimated GFR (Cockcroft-Gault) 54.4 BUN/Creatinine Ratio 13 (6-20) Glucose Level 209 mg/dL (70-99) Calcium Level 8.2 mg/dL (8.5-10.1) Total Bilirubin 0.2 mg/dL (0.2-1.0) Aspartate Amino Transf (AST/SGOT) 11 U/L (15-37) Alanine Aminotransferase (ALT/SGPT) 12 U/L (16-63) Alkaline Phosphatase 118 U/L (46-116) Creatine Kinase 52 U/L (39-308) Troponin I Quantitative < 0.017 ng/mL (0-0.055) Total Protein 6.2 g/dL (6.4-8.2) Albumin 2.6 g/dL (3.4-5.0) Albumin/Globulin Ratio 0.7 (1.0-1.7) Urine Collection Type Unknown Urine Color Yellow Urine Clarity Clear Urine pH 5.0 Urine Specific [place] 1.025 Urine Protein >100 mg/dl (NEG-TRACE) Urine Glucose (UA) 500 mg/dL (NEG) Urine Ketones (Stick) Neg mg/dL (NEG) Urine Blood Neg (NEG) Urine Nitrite Neg (NEG) Urine Bilirubin Neg (NEG) Urine Urobilinogen Dipstick 0.2 mg/dL (0.2 mg/dL) Urine Leukocyte Esterase Neg (NEG) Urine RBC 0 /HPF (0-2) Urine WBC 0 /HPF (0-4) Urine Squamous Epithelial Cells None /LPF Urine Bacteria 0 /HPF (0-FEW) Glucose (Fingerstick) 275 mg/dL (70-99) ECHOCARDIOGRAM Echocardiogram <Conclusion> Left ventricle systolic function is normal. The Ejection Fraction is 55-60%. There is normal LV segmental wall motion. DATE: 07/05/17 1446 ASSESSMENT/PLAN Assessment/Plan 1. Dizziness with near syncope and falls; most probably secondary CT head wit hout acute findings. No acute events on tele 2. Orthostatic hypotension; significant drop noted from sitting to standing yesterday 3. Hypertension 4. Hyperlipidemia 5. Diabetes, II 6. ANDRE 7. H/o throat CA Recommendations IV fluids Compression stockings Daily orthos Allow for higher baseline blood pressure Decrease caffeine intake Echo to assess LV systolic function. This can be done as an outpatient Consider outpatient ischemic evaluation CARLOS HUSTON APRN Jul 09, 2020 08:01
[2020-07-09] MEDS ORDERED: IV NORMAL SALINE 500ML 500 ML IV ONE (08:15)
[2020-07-09] MEDS: CETIRIZINE HCL 10 MG TABLET PO SCH (08:17)
[2020-07-09] MEDS: buPROPion XL 150 MG TAB.ER.24H PO SCH ×2 (08:17→20:32)
[2020-07-09] MEDS: GABAPENTIN 300 MG CAPSULE. PO SCH ×3 (08:17→20:32)
[2020-07-09] MEDS: predniSONE 20 MG TABLET PO SCH ×2 (08:18→08:27)
[2020-07-09] MEDS: CITALOPRAM 20 MG TABLET. PO SCH ×2 (08:18→08:27)
[2020-07-09] MEDS: PANTOPRAZOLE 40 MG TABLET. PO SCH ×2 (08:19→20:31)
[2020-07-09] MEDS: DOXYCYCLINE HYCLATE 100 MG TABLET PO SCH (08:19)
--- NOTE | 2020-07-09 08:24 | EKG ---
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
[2020-07-09] MEDS: INSULIN LISPRO 300 UNITS/3 ML VIAL. SQ SCH ×3 (08:25→18:27)
[2020-07-09] MEDS: FLUTICASONE 50MCG/NASAL SPRAY 16GM BOTTLE. NS SCH (08:26)
[2020-07-09] MEDS ORDERED: LISINOPRIL 20 MG TABLET PO SCH (09:00)
[2020-07-09] MEDS ORDERED: FLU VACC QS 2020-21(6MOS+)/PF 0.5 ML SYRINGE. VAX IM ONE (09:00)
[2020-07-09] MEDS: MIDODRINE 2.5 MG TABLET PO SCH ×2 (13:00→18:00)
--- NOTE | 2020-07-09 16:33 | RAD ---
Examination: CT chest without contrast HISTORY: History of shortness of breath COMPARISON: 11/19/2019 TECHNIQUE: Axial CT images of chest were performed without contrast. Coronal and sagittal reformats a re performed Exposure: One or more of the following individualized dose reduction techniques were utilized for thi s examination: 1. Automated exposure control 2. Adjustment of the mA and/or kV according to patient size 3. Use of iterative reconstruction technique FINDINGS: The central airways are patent. Examination limited lack of IV contrast. Mild cardiomegaly. Coronary artery calcifications.Moderate bilateral lung emphysematous changes. Mild bibasilar lung atelectasis or infiltrates. The visualized noncontrasted liver, spleen, adrenals grossly appears unremarkable. Mo derate degenerative changes thoracic spine. IMPRESSION: 1. Moderate bilateral lung emphysematous changes. 2.. Mild bibasilar lung atelectasis or infiltrates. Electronically signed by: Ravinder Corbett MD (07/09/2020 4:31 PM) [id number]
[2020-07-09] MEDS: ATORVASTATIN CALCIUM 10 MG TABLET. PO SCH (20:32)
[2020-07-09] MEDS: CEFDINIR 300 MG CAPSULE PO SCH (20:32)
[2020-07-09] MEDS: INSULIN GLARGINE SYRINGE. SQ SCH (20:55)
[2020-07-09] MEDS ORDERED: PATCH REMOVAL. MC SCH (21:00)
[2020-07-09 21:09] LABS: HEMOGLOBIN A1C 11.5 % (4.8-5.6)
[2020-07-10 05:56] VITALS: BP 160/85
[2020-07-10 06:57] LABS: BASO # 0.1 x10^3/uL (0.0-0.2); BASO % 1 % (0-3); EOS # 0.5 x10^3/uL (0.0-0.7); EOS % 7 % (0-3); HEMATOCRIT 41.8 % (39.0-53.0); HEMOGLOBIN 13.5 g/dL (13.0-17.5); LYMPH % 29 % (24-48); MEAN CORPUSCULAR HEMOGLOBIN 29 pg (25-35); MEAN CORPUSCULAR HGB CONC 32 g/dL (31-37); MEAN CORPUSCULAR VOLUME 91 fL (79-100); MONO # 0.6 x10^3/uL (0.0-1.1); MONO % 8 % (0-9); NEUT # 3.8 x10^3uL (1.8-7.7); NEUT % 55 % (31-73); PLATELET COUNT 327 x10^3/uL (140-400); RED CELL DISTRIBUTION WIDTH 14.7 % (11.5-14.5)
[2020-07-10] MEDS: INSULIN LISPRO 300 UNITS/3 ML VIAL. SQ SCH (08:00)
[2020-07-10] MEDS: CETIRIZINE HCL 10 MG TABLET PO SCH (08:23)
[2020-07-10] MEDS: CEFDINIR 300 MG CAPSULE PO SCH (08:24)
[2020-07-10] MEDS: FLUTICASONE 50MCG/NASAL SPRAY 16GM BOTTLE. NS SCH (08:24)
[2020-07-10] MEDS: buPROPion XL 150 MG TAB.ER.24H PO SCH (08:24)
[2020-07-10] MEDS: PANTOPRAZOLE 40 MG TABLET. PO SCH (08:24)
[2020-07-10] MEDS: CITALOPRAM 20 MG TABLET. PO SCH (08:24)
[2020-07-10] MEDS: GABAPENTIN 300 MG CAPSULE. PO SCH (08:24)
[2020-07-10] MEDS: MIDODRINE 2.5 MG TABLET PO SCH (08:25)
[2020-07-10] MEDS ORDERED: predniSONE 5 MG TABLET PO SCH (09:00)
[2020-07-10] MEDS ORDERED: DOCUSATE SODIUM 100 MG CAPSULE PO SCH (09:00)
[2020-07-10] MEDS ORDERED: FLU VACC QS 2020-21(6MOS+)/PF 0.5 ML SYRINGE. VAX IM ONE (09:00)
[2020-07-10] MEDS ORDERED: LIDOCAINE (700MG/PATCH) PATCH. TD SCH (09:00)
--- NOTE | 2020-07-10 09:43 | PDOC ---
CARDIO Progress Notes Date & Time Date of Service DATE: 07/10/20 TIME: 09:38 Time of Evaluation 09:38 Subjective Notes No chest pain, dizziness, diaphoresis, or SOA. Vitals Vitals Vital Signs Date Time Temp Pulse Resp B/P (MAP) Pulse Ox O2 Delivery O2 Flow Rate FiO2 07/10/20 08:25 62 160/85 07/10/20 05:56 97.2 18 94 Room Air Weight Weight [ ] Input and Output I.O. Intake and Output 07/10/20 07:00 Intake Total 1080 ml Balance 1080 ml Intake Oral 1080 ml # Voids 5 Laboratory Labs Laboratory Tests Test 07/08/20 18:25 07/08/20 19:30 07/08/20 20:15 07/09/20 07:56 White Blood Count 8.4 x10^3/uL (4.0-11.0) Red Blood Count 4.59 x10^6/uL (4.30-5.70) Hemoglobin 13.8 g/dL (13.0-17.5) Hematocrit 42.4 % (39.0-53.0) Mean Corpuscular Volume 92 fL (79-100) Mean Corpuscular Hemoglobin 30 pg (25-35) Mean Corpuscular Hemoglobin Concent 33 g/dL (31-37) Red Cell Distribution Width 14.8 % (11.5-14.5) Platelet Count 310 x10^3/uL (140-400) Neutrophils (%) (Auto) 79 % (31-73) Lymphocytes (%) (Auto) 11 % (24-48) Monocytes (%) (Auto) 7 % (0-9) Eosinophils (%) (Auto) 3 % (0-3) Basophils (%) (Auto) 1 % (0-3) Neutrophils # (Auto) 6.6 x10^3uL (1.8-7.7) Lymphocytes # (Auto) 0.9 x10^3/uL (1.0-4.8) Monocytes # (Auto) 0.5 x10^3/uL (0.0-1.1) Eosinophils # (Auto) 0.3 x10^3/uL (0.0-0.7) Basophils # (Auto) 0.1 x10^3/uL (0.0-0.2) Sodium Level 138 mmol/L (136-145) Potassium Level 4.5 mmol/L (3.5-5.1) Chloride Level 104 mmol/L (98-107) Carbon Dioxide Level 28 mmol/L (21-32) Anion Gap 6 (6-14) Blood Urea Nitrogen 17 mg/dL (8-26) Creatinine 1.3 mg/dL (0.7-1.3) Estimated GFR (Cockcroft-Gault) 54.4 BUN/Creatinine Ratio 13 (6-20) Glucose Level 209 mg/dL (70-99) Hemoglobin A1c 11.5 % (4.8-5.6) Calcium Level 8.2 mg/dL (8.5-10.1) Total Bilirubin 0.2 mg/dL (0.2-1.0) Aspartate Amino Transf (AST/SGOT) 11 U/L (15-37) Alanine Aminotransferase (ALT/SGPT) 12 U/L (16-63) Alkaline Phosphatase 118 U/L (46-116) Creatine Kinase 52 U/L (39-308) Troponin I Quantitative < 0.017 ng/mL (0-0.055) Total Protein 6.2 g/dL (6.4-8.2) Albumin 2.6 g/dL (3.4-5.0) Albumin/Globulin Ratio 0.7 (1.0-1.7) Vitamin B12 Level 306 pg/mL (247-911) Urine Collection Type Unknown Urine Color Yellow Urine Clarity Clear Urine pH 5.0 Urine Specific [place] 1.025 Urine Protein >100 mg/dl (NEG-TRACE) Urine Glucose (UA) 500 mg/dL (NEG) Urine Ketones (Stick) Neg mg/dL (NEG) Urine Blood Neg (NEG) Urine Nitrite Neg (NEG) Urine Bilirubin Neg (NEG) Urine Urobilinogen Dipstick 0.2 mg/dL (0.2 mg/dL) Urine Leukocyte Esterase Neg (NEG) Urine RBC 0 /HPF (0-2) Urine WBC 0 /HPF (0-4) Urine Squamous Epithelial Cells None /LPF Urine Bacteria 0 /HPF (0-FEW) Glucose (Fingerstick) 275 mg/dL (70-99) 147 mg/dL (70-99) Test 07/09/20 11:44 07/09/20 16:29 07/09/20 19:53 07/10/20 06:05 Glucose (Fingerstick) 103 mg/dL (70-99) 301 mg/dL (70-99) 241 mg/dL (70-99) White Blood Count 7.0 x10^3/uL (4.0-11.0) Red Blood Count 4.60 x10^6/uL (4.30-5.70) Hemoglobin 13.5 g/dL (13.0-17.5) Hematocrit 41.8 % (39.0-53.0) Mean Corpuscular Volume 91 fL (79-100) Mean Corpuscular Hemoglobin 29 pg (25-35) Mean Corpuscular Hemoglobin Concent 32 g/dL (31-37) Red Cell Distribution Width 14.7 % (11.5-14.5) Platelet Count 327 x10^3/uL (140-400) Neutrophils (%) (Auto) 55 % (31-73) Lymphocytes (%) (Auto) 29 % (24-48) Monocytes (%) (Auto) 8 % (0-9) Eosinophils (%) (Auto) 7 % (0-3) Basophils (%) (Auto) 1 % (0-3) Neutrophils # (Auto) 3.8 x10^3uL (1.8-7.7) Lymphocytes # (Auto) 2.0 x10^3/uL (1.0-4.8) Monocytes # (Auto) 0.6 x10^3/uL (0.0-1.1) Eosinophils # (Auto) 0.5 x10^3/uL (0.0-0.7) Basophils # (Auto) 0.1 x10^3/uL (0.0-0.2) Test 07/10/20 07:51 Glucose (Fingerstick) 78 mg/dL (70-99) Physical Exams HEENT: Neck Supple W Full Motion Chest: Symmetric Lungs: Clear to Auscultation Heart: RRR Abdomen: Soft N/T Extremities: No Edema Neurology: alert, oriented, follow commands Assessment Assessment 1. Dizziness with near syncope and falls; most probably secondary CT head without acute findings. No acute events on tele 2. Orthostatic hypotension; significant drop noted from sitting to standing yesterday. Midodrine added 3. Hypertension; controlled overall 4. Hyperlipidemia 5. Diabetes, II 6. ANDRE 7. H/o throat CA Recommendations Compression stockings Recheck orthos. If orthostasis persists, will given additional 500cc of IVFs Decrease caffeine intake Outpatient echo as scheduled Follow up with Dr. Allen arranged. Consider outpatient ischemic evaluation CARLOS HUSTON APRN Jul 10, 2020 09:43
[2020-07-10 10:22] VITALS: BP 150/78
[2020-07-10 10:23] VITALS: BP_SYST 139; BP_SYST 152; BP_DIAS 78; BP_DIAS 86
[2020-07-10] MEDS ORDERED: FLUT16SP21 NS (11:40)
[2020-07-10] MEDS ORDERED: CEFD300C PO (11:40)
[2020-07-10] MEDS ORDERED: LACT1CAP19 PO (11:40)
[2020-07-10] MEDS ORDERED: PRED5TAB PO (11:40)
[2020-07-10] MEDS ORDERED: LIDO700A21 TD (11:40)
[2020-07-10] MEDS ORDERED: DOCU-109 PO (11:40)
[2020-07-10] MEDS ORDERED: MIDO2.5T PO (11:40)
--- NOTE | 2020-07-10 12:19 | NUR ---
NSG NOTE; DISCHARGE VERBAL AND WRITTEN DISCHARGE INSTRUCTIONS GIVEN TO PT WITH VERBAL UNDERSTANDING [facility] ARRANGED BY OIL OPERATOR NEW RX TRANSMITTED TO PT'S PHARMACY IN [facility] DISCHARGED TO HOME AT 1205 VIA W/C ACCOMP BY FAMILY WHO PICKED HIM UP
--- NOTE | 2020-07-10 12:21 | DISCH ---
HOME HEALTH DISCHARGE/MEDS DISCHARGE INFORMATION: Discharge Date: Jul 10, 2020 Final Diagnosis: falls, hypotension, hypertension Condition on Discharge: Stable CODE STATUS: Code Status: Full HOME HEALTH: Face to Face: I certify this patient is under my care and that I, or a nurse practitioner or physician's surveyor instrument assistant working with me, had a face to face encounter that meets the physician face to face encounter requirements with this patient on 07/10/2020. Medical Condition(s): DM, Falls, HTN Fdc For: Assess Cardiopulm Status, Assess & Educate Safety, Assess/Skilled Observatio, Medication Management, Pain Management Physical Therapy For: Evalulation/Treatment Homebound Status Met By: Unsteady balance w/ amb, POST DISCHARGE ORDERS: Activity Instructions for Disc: No restrictions Weight Bearing Status after Di: No restrictions DIET AFTER DISCHARGE: ADA CERTIFICATION STATEMENT: Certification Statement: Based on the above finding, I certify that this patient is confined to the home and needs intermittent mcfp care, physical therapy and/or speech therapy, or continues to need occupational therapy.~ This patient is under my care, and I have initiated the establishment of the plan of care.~ This patient will be followed by myself or a community physician who will periodically review the plan of care. DISCHARGE MEDICATIONS: Home Meds Active Scripts Lidocaine (Lidocaine PATCH ) 1 Each Adh..patch, 1 PATCH TD DAILY for pain, #10 PATCH 1 Refill Prov:ROBIN ESPARZA MD 07/10/20 Prednisone (PREDNISONE) 5 Mg Tablet, 15 MG PO DAILY for inflammation, #12 TAB take 3 tablets daily and decrease by 1 tablet every 3rd day until gone (3,3,2,2,1,1,) Prov:ROBIN ESPARZA MD 07/10/20 Lactobacillus Rhamnosus Gg (CULTURELLE) 1 Each Cap.sprink, 1 CAP PO BID for probiotic for 60 Days, #120 CAP 2 Refills Prov:ROBIN ESPARZA MD 07/10/20 Midodrine Hcl (MIDODRINE HCL) 2.5 Mg Tablet, 2.5 MG PO [id number] for hypotension for 30 Days, #90 TAB 3 Refills Prov:ROBIN ESPARZA MD 07/10/20 Cefdinir (CEFDINIR) 300 Mg Capsule, 300 MG PO BID for infection for 5 Days, #10 CAP Prov:ROBIN ESPARZA MD 07/10/20 Docusate Sodium (COLACE) 100 Mg Capsule, 100 MG PO DAILY for constipation for 90 Days, #90 CAP 9 Refills Prov:ROBIN ESPARZA MD 07/10/20 Fluticasone Propionate (FLUTICASONE PROPIONATE NASAL SPRAY) 16 Gm [place].susp, 2 SPRAY NS DAILY for sinus congestion, #2 SPRAY 2 Refills Prov:ROBIN ESPARZA MD 07/10/20 Insulin Aspart (NOVOLOG FLEXPEN) 100 Unit/1 Ml Insuln.pen, 15 UNITS SQ TIDAC for 30 Days, #3 EACH Prov:ROBIN ESPARZA MD 07/06/17 Reported Medications Aspirin (ASPIRIN) 81 Mg Tab.chew, 81 MG PO DAILY for HEART HEALTH LAST DOSE GIVEN: DATE: TODAY TIME: AM NEXT DOSE DUE: DATE: TOMORROW TIME: AM 07/08/20 Pravastatin Sodium (PRAVASTATIN SODIUM) 20 Mg Tablet, 1 TAB PO QHS for HIGH CHOLESTEROL LAST DOSE GIVEN: DATE: YESTERDAY TIME: AT BEDTIME NEXT DOSE DUE: DATE: TODAY TIME: AT BEDTIME 07/02/17 Escitalopram Oxalate (ESCITALOPRAM OXALATE) 10 Mg Tablet, 1 TAB PO DAILY for DEPRESSION LAST DOSE GIVEN: DATE: TODAY TIME: AM NEXT DOSE DUE: DATE: TOMORROW TIME: AM 07/02/17 Cetirizine Hcl (CETIRIZINE HCL) 10 Mg Tablet, 1 TAB PO DAILY for ALLERGIES LAST DOSE GIVEN: DATE: TODAY TIME: AM NEXT DOSE DUE: DATE: TOMORROW TIME: AM 07/02/17 Insulin Glargine,Hum.rec.anlog (LANTUS SOLOSTAR) 100 Unit/1 Ml Insuln.pen, 50 UNIT SQ QHS for HIGH BLOOD SUGAR-DIABETES LAST DOSE GIVEN: DATE: YESTERDAY TIME: AT BEDTIME NEXT DOSE DUE: DATE: TODAY TIME: AT BEDTIME 07/02/17 Lisinopril (LISINOPRIL) 20 Mg Tablet, 1 TAB PO DAILY for HIGH BLOOD PRESSURE NOT GIVEN IN THE HOSPITAL NEXT DOSE DUE: DATE: TOMORROW TIME: AM 07/02/17 Bupropion Hcl (BUPROPION XL) 150 Mg Tab.er.24h, 1 TAB PO BID for DEPRESSION LAST DOSE GIVEN: DATE: TODAY TIME: AM NEXT DOSE DUE: DATE: TODAY TIME: PM 07/02/17 Esomeprazole Magnesium (NEXIUM CAPSULE) 40 Mg Capsule.dr, 1 CAP PO BID for HEARTBURN LAST DOSE GIVEN: DATE: TODAY TIME: AM NEXT DOSE DUE: DATE: TODAY TIME: PM 07/02/17 Gabapentin (NEURONTIN ) 300 Mg Capsule, 900 MG PO BID for NERVE PAIN LAST DOSE GIVEN: DATE: TODAY TIME: AM NEXT DOSE DUE: DATE: TODAY TIME: PM 07/02/17 ROBIN ESPARZA MD Jul 10, 2020 12:21
--- NOTE | 2020-07-10 14:04 | PN ---
DATE: 07/09/2020 SUBJECTIVE: A 70-year-old male who came in with marked syncope, ____ times at home. It appears that he has a significant drop in his blood pressure orthostasis that has dropped from 132 down to 98 while standing and even as when he sits up. The patient ____ neurological deficit from his poorly controlled diabetes. We are trying to get that under control. Gave him fluids. Adjust his medications. Blood sugars are ____ in terms of controlling it and then we will continue on a sliding scale, get those sugars down. OBJECTIVE: GENERAL: The patient is alert and oriented. LUNGS: Diminished, but clear. CARDIOVASCULAR: Stable. ABDOMEN: Soft, protuberant. EXTREMITIES: No clubbing, cyanosis or edema. IMPRESSION: Orthostatic hypotension, multiple falls, syncope. PLAN: We will try him on some midodrine, gradually decrease his orthostasis and hopefully make him more steady and he is also receiving PT, OT. ROBIN ESPARZA MD DR: DOMONIQUE/sanam JOB#: [id number] / [id number]
[2020-07-10] MEDS ORDERED: LACTOBACILLUS RHAMNOSUS GG 1 CAPSULE. PO SCH (21:00)
--- NOTE | 2020-07-14 09:05 | NUR ---
IP: patient notified of COVID result.
== END 2020-07-10 12:05 | disposition home or self-care (01) | DRG 312 ==
LOC: 1 SOUTH 16:17
PROVIDERS: ADMIT Family Medicine; ATTEND Family Medicine
DX: I95.1 Orthostatic hypotension (principal); E11.65 Type 2 diabetes mellitus with hyperglycemia; E78.5 Hyperlipidemia, unspecified; G47.33 Obstructive sleep apnea (adult) (pediatric); I10 Essential (primary) hypertension; J44.9 Chronic obstructive pulmonary disease, unspecified; K21.9 Gastro-esophageal reflux disease without esophagitis; Z20.828 Contact with and (suspected) exposure to other viral communicable diseases; Z82.49 Family history of ischemic heart disease and other diseases of the circulatory system; Z83.3 Family history of diabetes mellitus; Z85.819 Personal history of malignant neoplasm of unspecified site of lip, oral cavity, and pharynx
CPT/HCPCS: 36415; 70450; 71046; 71250; 80053; 81001; 82550; 82607; 82947; 83036; 84484; 85025; 90471; 90686; 93005; J1815; J7040; J7512; U0003; 92610; 97530; 97535

== ENCOUNTER → 2020-08-15 | Outpatient (CLI) | payer MEDICARE, BC ==
[2020-07-10 10:23] VITALS: BP 139/86
[~2020-08-15] MED LIST changes: +ASPI-630 PO; -BUPR-192 PO; +BUPR150T7 PO; +CEFD300C PO; +DOCU-109 PO; +FLUT16SP21 NS; +LACT1CAP19 PO; +LIDO700A21 TD; -LISI-334 PO; +LISI20TA18 PO; +MIDO2.5T PO; +PRED5TAB PO
--- NOTE | 2020-08-15 12:37 | CARD ---
MR#: [id number] Date of Study: 08/15/2020 Ordering Physician: GILA SÁNCHEZ, Referring Physician: GILA SÁNCHEZ, Tech: Sherley Navarro RDCS APPROVED REPORT EXAM: Two-dimensional and M-mode echocardiogram with Doppler and color Doppler. Other Information Quality : Good INDICATION Dizziness and Vertigo Syncope 2D DIMENSIONS RVDd3.2 (2.9-3.5cm)Left Atrium(2D)4.6 (1.6-4.0cm) IVSd1.1 (0.7-1.1cm)Aortic Root(2D)3.7 (2.0-3.7cm) LVDd3.9 (3.9-5.9cm)LVOT Diameter2.4 (1.8-2.4cm) PWd1.1 (0.7-1.1cm)LVDs2.9 (2.5-4.0cm) FS (%) 30.0 %SV27.8 ml LVEF(%)60.0 (>50%) Aortic Valve AoV Peak Finn.197.8cm/sAoV VTI36.0cm AO Peak GR.15.6mmHgLVOT Peak Finn.119.6cm/s LVOT VTI 24.29cmAO Mean GR.8mmHg DUNIA (VMAX)2.56rd3BWO (VTI)3.09cm2 Mitral Valve MV E Eflvbpiv27.1cm/sMV E Peak Gr.3mmHg MV DECEL [id number] A Vtwdeqpc14.5cm/s MV E Mean Gr.2mmHgE/A Ratio1.1 Pulmonary Vein S1 Hakoodgr65.1cm/sD2 Xdizrlej40.6cm/s LEFT VENTRICLE The left ventricle is normal size. There is normal left ventricular wall thickness. The left ventricu lar systolic function is normal and the ejection fraction is within normal range. The Ejection Fracti on is 55-60%. There is normal LV segmental wall motion. Transmitral Doppler flow pattern is Grade I-a bnormal relaxation pattern. RIGHT VENTRICLE The right ventricle is normal size. The right ventricular systolic function is normal. ATRIA The left atrium is mildly dilated. The right atrium is mildly dilated. The interatrial septum is inta ct with no evidence for an atrial septal defect or patent foramen ovale as noted on 2-D or Doppler im aging. AORTIC VALVE The aortic valve is heavily calcified. Doppler and Color Flow revealed no significant aortic regurgit ation. There is no significant aortic valvular stenosis. MITRAL VALVE The mitral valve is calcified but opens well. There is no evidence of mitral valve prolapse. There is no mitral valve stenosis. Doppler and Color Flow revealed no mitral valve regurgitation noted. TRICUSPID VALVE The tricuspid valve is normal in structure and function. Doppler and Color Flow revealed no tricuspid valve regurgitation noted. There is no tricuspid valve stenosis. PULMONIC VALVE The pulmonic valve is not well visualized. Doppler and Color Flow revealed no pulmonic valvular regur gitation. There is no pulmonic valvular stenosis. GREAT VESSELS The aortic root is normal in size. The ascending aorta is not well seen. The IVC is normal in size an d collapses >50% with inspiration. PERICARDIAL EFFUSION There is no evidence of significant pericardial effusion. Critical Notification Critical Value: No <Conclusion> The left ventricular systolic function is normal and the ejection fraction is within normal range. Th e Ejection Fraction is 55-60%. There is normal LV segmental wall motion. The aortic valve is heavily calcified. Signed by : Filemon Hobson, Electronically Approved : 08/15/2020 12:37:12
== END ==
LOC: ECHO 10:49
PROVIDERS: ATTEND Internal Medicine Cardiovascular Disease
DX: I08.0 Rheumatic disorders of both mitral and aortic valves (principal)
CPT/HCPCS: 93306

== ENCOUNTER 2020-09-02 11:56 | Inpatient (IN) | payer MEDICARE, BC ==
[~2020-09-02] VITALS: Ht 179.1 cm; Wt 100.8 kg
[~2020-09-02 11:56] MED LIST changes: +BUPR150T21 PO; -BUPR150T7 PO
--- NOTE | 2020-09-02 12:42 | PHYS DOC ---
Past History Past Medical History: Cancer, COPD, Depression, Diabetes, Heart Disease, Hypertension, Pneumonia (KONSTANTIN CHESTER APRN) Past Surgical History: Appendectomy, Knee Replacement (KONSTANTIN CHESTER APRN) Smoking: Quit Greater Than 1 Year Alcohol Use: Occasionally Drug Use: None (KONSTANTIN CHESTER APRN) General Adult EDM: Chief Complaint: BLOOD SUGAR PROBLEM HPI: HPI: Patient is a 70-year-old male who presents with falls. Daughter states that patient had an appointment with Dr. Lara this afternoon to discuss CT and echo results from last week. Patient fell again this morning so daughter called PCP. Dr. Lara referred patient to the emergency room. Daughter states that he has been falling for the last 6 to 9 months but much worse this week. Daughter states that he has been very lethargic since yesterday and his balance has been off when he does get up and walk. Patient has history of diabetes, COPD, hypertension, neuropathy. Patient denies pain or any complaints. Patient denies dizziness. "My legs just keep going out from under me". (KONSTANTIN CHESTER APRN) Review of Systems: Review of Systems: Constitutional: Denies fever or chills Eyes: Denies change in visual acuity HENT: Denies nasal congestion or sore throat Respiratory: Denies cough or shortness of breath Cardiovascular: Denies chest pain or edema GI: Denies abdominal pain, nausea, vomiting, bloody stools or diarrhea : Denies dysuria Musculoskeletal: Denies back pain or joint pain Integument: Denies rash Neurologic: Denies headache, focal weakness or sensory changes Endocrine: Denies polyuria or polydipsia Lymphatic: Denies swollen glands Psychiatric: Denies depression or anxiety (KONSTANTIN CHESTER APRN) Allergies: Allergies: Allergies Coded Allergies Type Severity Reaction Last Updated Verified No Known Drug Allergies 07/02/17 No (KONSTANTIN CHESTER APRN) Physical Exam: PE: Constitutional: Well developed, well nourished, no acute distress, non-toxic appearance. [] HENT: Normocephalic, atraumatic, bilateral external ears normal, oropharynx moist, no oral exudates, nose normal. [] Eyes: PERRLA, EOMI, conjunctiva normal, no discharge. [] Neck: Normal range of motion, no tenderness, supple, no stridor. [] Cardiovascular:Heart rate regular rhythm, no murmur [] Lungs & Thorax: Bilateral breath sounds clear to auscultation [] Abdomen: Bowel sounds normal, soft, no tenderness, no masses, no pulsatile masses. [] Skin: Warm, dry, no erythema, no rash. [] Back: No tenderness, no CVA tenderness. [] Extremities: No tenderness, no cyanosis, no clubbing, ROM intact, no edema. [] Neurologic: Alert and oriented X 3, normal motor function, normal sensory function, no focal deficits noted. [] Psychologic: Affect normal, judgement normal, mood normal. [] (KONSTANTIN CHESTER APRN) Current Patient Data: Labs: Laboratory Tests Test 09/02/20 12:08 Glucose (Fingerstick) 153 mg/dL (70-99) H (KONSTANTIN CHESTER APRN) EKG: EKG: Sinus rhythm. Heart rate 85 bpm. [] (KONSTANTIN CHESTER APRN) Radiology/Procedures: Radiology/Procedures: []Noncontrast CT scan of head and cervical spine compared to prior CT scan of the head dated July 082019 for status post recent fall. TECHNIQUE: Contiguous axial CT images are obtained from skull base to the vertex as well as through the cervical spine. Sagittal and coronal reformations of the cervical spine are obtained. No IV contrast was administered. Findings in the head: No evidence of acute territorial infarction, or intracranial hemorrhage. There is no mass, mass effect, or midline shift. The ventricles and subarachnoid spaces are mildly enlarged suggestive of diffuse cortical atrophy. There is a tiny lipomatous deposit along the anterior falx, likely benign fatty falx. No extra-axial fluid collections are identified. The posterior fossa, brainstem, bilateral orbits, and visualized paranasal sinuses are unremarkable. Mastoid air cells are clear. No osseous abnormalities. Findings in the cervical spine: Severe emphysema in the apices. Focal area of consolidation the left lung apex could reflect a developing pneumonia. Consider CT scan of the chest for more complete assessment. There is straightening of the normal cervical lordosis. No fracture or acute osseous or alignment abnormality is identified. There is spondylosis at C5-6, was moderate narrowing of the disc space and bulky anterior and posterior osteophytes. There is calcification anterior longitudinal ligament in a couple locations as well. Atlantoaxial arthrosis is noted. No definite bony canal stenosis. Prevertebral soft tissues are grossly unremarkable. Mild uncovertebral arthrosis at C6-7. IMPRESSION: 1. No acute intracranial abnormality. 2. Straightening of normal cervical lordosis with no acute osseous or alignment abnormality of cervical spine. 3. 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 4. Developing consolidation of the left lung apex incompletely visualized but suspicious for pneumonia. Consider further evaluation with dedicated CT scan of the chest. 5. Advanced COPD. PQRS Compliance Statement: One or more of the following individualized dose reduction techniques were utilized for this examination: 1. Automated exposure control 2. Adjustment of the mA and/or kV according to patient size 3. Use of iterative reconstruction technique Electronically signed by: Theo Denson MD (09/02/2020 1:40 PM) [id number] Portable chest x-ray compared to CT scan of the chest dated July 092019 for falls. FINDINGS: There are perihilar infiltrates, more prominent on the right than the left. Infiltrates seen in the left lung apex on the CT scan of the cervical spine is not well appreciated on chest radiograph. Heart size within normal limits. No osseous abnormalities. IMPRESSION: 1. Perihilar infiltrates, right greater than left. Electronically signed by: Theo Denson MD (09/02/2020 1:41 PM) [id number] (KONSTANTIN CHESTER APRN) Heart Score: Risk Factors: Risk Factors: DM, Current or recent (<one month) smoker, HTN, HLP, family history of CAD, obesity. Risk Scores: Score 0 - 3: 2.5% MACE over next 6 weeks - Discharge Home Score 4 - 6: 20.3% MACE over next 6 weeks - Admit for Clinical Observation Score 7 - 10: 72.7% MACE over next 6 weeks - Early Invasive Strategies (KONSTANTIN CHESTER APRN) Course & Med Decision Making: Course & Med Decision Making Pertinent Labs and Imaging studies reviewed. (See chart for details) [] Patient is a 70-year-old male who presents with falls. Daughter states that patient had an appointment with Dr. Lara this afternoon to discuss CT and echo results from last week. Patient fell again this morning so daughter called PCP. Dr. Lara referred patient to the emergency room. Daughter states that he has been falling for the last 6 to 9 months but much worse this week. Daughter states that he has been very lethargic since yesterday and his balance has been off when he does get up and walk. Patient has history of diabetes, COPD, hypertension, neuropathy. Patient denies pain or any complaints. Patient denies dizziness. "My legs just keep going out from under me". Daughter states that wifes birthday was a couple days ago and thinks that her dad might be depressed as well. Granddaughter lives with patient and helps with medication and insulin.blood sugar in the emergency room was 153. Daughter denies patient on any blood thinners. Patient also sees Dr. Jim. Patient is alert and oriented to person and place. Patient unable to tell me what year it is. Spoke with Dr. Lara regarding admitting patient to [facility]. Labs unremarkable. CT head negative for acute abnormalities. Chest x-ray negative. Unable to obtain urine. Dr. Lara is accepting patient for inpatient. RN informed daughter of dad's status. Patient informed he will be admitted to the hospital. Patient states that he would like to go home but he is okay with this plan. Patient is hemodynamically stable upon admit. Patient is denying any concerns or pain at this time. (KONSTANTIN CHESTER APRN) Dragon Disclaimer: Dragon Disclaimer: This electronic medical record was generated, in whole or in part, using a voice recognition dictation system. (KONSTANTIN CHESTER APRN) Departure Departure: Impression: Primary Impression: Weakness Additional Impression: Falls Qualified Codes: W19.XXXA - Unspecified fall, initial encounter Disposition: 09 ADMITTED INPT THIS HOSP Admitting Physician: Robin Esparza (KONSTANTIN CHESTER APRN) Condition: STABLE Referrals: ROBIN ESPARZA MD (PCP) Attending Signature Attending Signature I have reviewed the PA/HABILITATION ASSISTANT's note and plan of care. I was available for consultation as needed during the patient's visit in the emergency department. I agree with the clinical impression, plan, and disposition. (ANA ROSA CARVALHO DO) KONSTANTIN CHESTER APRN Sep 02, 2020 12:42 ANA ROSA CARVALHO DO Sep 05, 2020 04:26
[2020-09-02 12:50] LABS: BASO # 0.1 x10^3/uL (0.0-0.2); BASO % 1 % (0-3); EOS # 0.3 x10^3/uL (0.0-0.7); EOS % 3 % (0-3); HEMATOCRIT 48.8 % (39.0-53.0); LYMPH # 1.7 x10^3/uL (1.0-4.8); LYMPH % 17 % (24-48); MEAN CORPUSCULAR HEMOGLOBIN 30 pg (25-35); MEAN CORPUSCULAR HGB CONC 33 g/dL (31-37); MEAN CORPUSCULAR VOLUME 90 fL (79-100); MONO # 0.9 x10^3/uL (0.0-1.1); MONO % 9 % (0-9); NEUT # 7.3 x10^3uL (1.8-7.7); NEUT % 70 % (31-73); PLATELET COUNT 387 x10^3/uL (140-400); RED CELL DISTRIBUTION WIDTH 14.1 % (11.5-14.5); WHITE BLOOD COUNT 10.3 x10^3/uL (4.0-11.0)
[2020-09-02 12:51] LABS: CALCIUM 9.3 mg/dL (8.5-10.1); CREATININE 1.8 mg/dL (0.7-1.3); GFR 37.4; POTASSIUM 3.8 mmol/L (3.5-5.1)
[2020-09-02 12:57] LABS: ALBUMIN/GLOBULIN RATIO 0.8 (1.0-1.7); TOTAL BILIRUBIN 0.4 mg/dL (0.2-1.0); TOTAL PROTEIN 6.6 g/dL (6.4-8.2)
--- NOTE | 2020-09-02 13:42 | RAD ---
Noncontrast CT scan of head and cervical spine compared to prior CT scan of the head dated June 112019 for status post recent fall. TECHNIQUE: Contiguous axial CT images are obtained from skull base to the vertex as well as through t he cervical spine. Sagittal and coronal reformations of the cervical spine are obtained. No IV contra st was administered. Findings in the head: No evidence of acute territorial infarction, or intracranial hemorrhage. There is no mass, mass effect, or midline shift. The ventricles and subarachnoid spaces are mildly enlarged suggestive of diffuse cortical atrophy. There is a tiny lipomatous deposit along the anterior falx, likely benign fatty falx. No extra-axial fluid collections are identified. The posterior fossa, brain stem, bilateral orbits, and visualized paranasal sinuses are unremarkable. Mastoid air cells are mao r. No osseous abnormalities. Findings in the cervical spine: Severe emphysema in the apices. Focal area of consolidation the left lung apex could reflect a developing pneumonia. Consider CT scan of the chest for more complete asses sment. There is straightening of the normal cervical lordosis. No fracture or acute osseous or alignm ent abnormality is identified. There is spondylosis at C5-6, was moderate narrowing of the disc space and bulky anterior and posterior osteophytes. There is calcification anterior longitudinal ligament in a couple locations as well. Atlantoaxial arthrosis is noted. No definite bony canal stenosis. Prev ertebral soft tissues are grossly unremarkable. Mild uncovertebral arthrosis at C6-7. IMPRESSION: 1. No acute intracranial abnormality. 2. Straightening of normal cervical lordosis with no acute osseous or alignment abnormality of cervic al spine. 3. 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 4. Developing consolidation of the left lung apex incompletely visualized but suspicious for pneumoni a. Consider further evaluation with dedicated CT scan of the chest. 5. Advanced COPD. PQRS Compliance Statement: One or more of the following individualized dose reduction techniques were utilized for this examinat ion: 1. Automated exposure control 2. Adjustment of the mA and/or kV according to patient size 3. Use of iterative reconstruction technique Electronically signed by: Theo Denson MD (09/02/2020 1:40 PM) [id number]
--- NOTE | 2020-09-02 13:42 | EKG ---
[address] [address] Test Date: 2020-09-02 Test Time: 13:25:53 Pat Name: LILIA BENDER Department: Room: Gender: M [employer]: BLANCA : 1950 Requested By: KONSTANTIN CHESTER Order Number: [id number] Reading MD: Measurements Intervals Spencer Rate: 85 P: 40 MN: 200 QRS: 6 QRSD: 88 T: 46 QT: 378 QTc: 455 Interpretive Statements SINUS RHYTHM INCOMPLETE RIGHT BUNDLE BRANCH BLOCK OTHERWISE NORMAL ECG RI6.02 No previous ECG available for comparison
--- NOTE | 2020-09-02 13:43 | RAD ---
Portable chest x-ray compared to CT scan of the chest dated July 092019 for falls. FINDINGS: There are perihilar infiltrates, more prominent on the right than the left. Infiltrates see n in the left lung apex on the CT scan of the cervical spine is not well appreciated on chest radiogr aph. Heart size within normal limits. No osseous abnormalities. IMPRESSION: 1. Perihilar infiltrates, right greater than left. Electronically signed by: Theo Denson MD (09/02/2020 1:41 PM) [id number]
[2020-09-02 18:29] VITALS: BP 176/89
[2020-09-02 20:30] VITALS: BP 151/79
[2020-09-03 00:35] VITALS: BP 119/75
[2020-09-03] MEDS ORDERED: ACETAMINOPHEN 500 MG TABLET PO PRN (00:45)
[2020-09-03] MEDS ORDERED: LORazepam 0.5 MG TABLET PO PRN (00:45)
[2020-09-03 06:26] VITALS: BP 133/90
[2020-09-03] MEDS: MIDODRINE 2.5 MG TABLET PO SCH ×3 (07:00→17:02)
[2020-09-03] MEDS: LISINOPRIL 20 MG TABLET PO SCH (08:07)
[2020-09-03] MEDS: PANTOPRAZOLE 40 MG TABLET. PO SCH ×2 (08:07→17:01)
[2020-09-03] MEDS: LACTOBACILLUS RHAMNOSUS GG 1 CAPSULE. PO SCH ×2 (08:07→20:51)
[2020-09-03] MEDS: ASPIRIN CHEWABLE 81 MG TABLET. PO SCH (08:07)
[2020-09-03] MEDS: CETIRIZINE HCL 10 MG TABLET PO SCH (08:08)
[2020-09-03] MEDS: GABAPENTIN 300 MG CAPSULE. PO SCH ×2 (08:08→20:51)
[2020-09-03] MEDS: predniSONE 5 MG TABLET PO SCH (08:08)
[2020-09-03] MEDS: DOCUSATE SODIUM 100 MG CAPSULE PO SCH (08:08)
[2020-09-03] MEDS: CITALOPRAM 20 MG TABLET. PO SCH (08:08)
[2020-09-03] MEDS: buPROPion XL 150 MG TAB.ER.24H PO SCH ×2 (08:08→20:51)
[2020-09-03] MEDS: LIDOCAINE (700MG/PATCH) PATCH. TD SCH (08:09)
[2020-09-03] MEDS: FLUTICASONE 50MCG/NASAL SPRAY 16GM BOTTLE. NS SCH (08:17)
[2020-09-03] MEDS: INSULIN LISPRO 300 UNITS/3 ML VIAL. SQ SCH ×3 (08:19→17:06)
[2020-09-03] MEDS ORDERED: CEFDINIR 300 MG CAPSULE PO SCH (09:00)
[2020-09-03 09:57] LABS: BASO # 0.1 x10^3/uL (0.0-0.2); BASO % 1 % (0-3); EOS # 0.4 x10^3/uL (0.0-0.7); EOS % 4 % (0-3); HEMATOCRIT 50.6 % (39.0-53.0); HEMOGLOBIN 16.5 g/dL (13.0-17.5); LYMPH # 1.5 x10^3/uL (1.0-4.8); LYMPH % 16 % (24-48); MEAN CORPUSCULAR HEMOGLOBIN 30 pg (25-35); MEAN CORPUSCULAR HGB CONC 33 g/dL (31-37); MEAN CORPUSCULAR VOLUME 91 fL (79-100); MONO # 0.4 x10^3/uL (0.0-1.1); MONO % 4 % (0-9); NEUT # 7.1 x10^3uL (1.8-7.7); NEUT % 75 % (31-73); PLATELET COUNT 370 x10^3/uL (140-400); RED BLOOD COUNT 5.59 x10^6/uL (4.30-5.70); RED CELL DISTRIBUTION WIDTH 14.3 % (11.5-14.5); WHITE BLOOD COUNT 9.5 x10^3/uL (4.0-11.0)
[2020-09-03 10:08] LABS: CALCIUM 9.2 mg/dL (8.5-10.1); CREATININE 1.5 mg/dL (0.7-1.3); GFR 46.1; POTASSIUM 3.6 mmol/L (3.5-5.1)
[2020-09-03 10:37] VITALS: BP 100/65
[2020-09-03 15:27] VITALS: BP 101/61
--- NOTE | 2020-09-03 17:05 | RAD ---
CT THORAX WO History: Reason: pneumonia / Spl. Instructions: / History: Comparison: 07/09/2020 Technique: Noncontrast CT of the chest. Findings: Assessment is limited by lack of IV contrast and motion artifact. Aorta and Great Vessels: No aneurysm of the aortic arch or thoracic aorta is seen. Mild atherosclerot ic calcification. Thyroid: No significant abnormalities. Mediastinum and dimple: No mediastinal masses or adenopathy is seen. Esophagus: The visualized esophagus is normal. Heart: The heart is normal in size. There is no pericardial effusion. Moderate coronary artery calcif ication. Trachea: Diffuse mild bronchial wall thickening. Lungs: Moderate emphysematous changes. New airspace opacity in the left upper lobe along the fissure. Linear left lower lung atelectasis. Pleural Space: There is no pneumothorax or pleural effusion. Upper Abdomen: Limited evaluation of the upper abdomen is unremarkable. Osseous Structures and Soft Tissues: Within normal limits for age. Impression: 1. Moderate emphysema with new consolidation in the left upper lobe along the fissure concerning for acute infectious process. ------ Exposure: One or more of the following individualized dose reduction techniques were utilized for thi s examination: 1. Automated exposure control 2. Adjustment of the mA and/or kV according to patient size 3. Use of iterative reconstruction technique. Electronically signed by: Ministerio Bassett MD (09/03/2020 5:03 PM) [facility]
[2020-09-03] MEDS: ATORVASTATIN CALCIUM 10 MG TABLET. PO SCH (20:51)
[2020-09-03 20:52] VITALS: BP 116/71
[2020-09-03] MEDS: INSULIN GLARGINE SYRINGE. SQ SCH (20:53)
[2020-09-03] MEDS: PATCH REMOVAL. MC SCH (21:00)
--- NOTE | 2020-09-03 21:27 | HP ---
ADMIT DATE: 09/02/2020 HISTORY OF PRESENT ILLNESS: A 70-year-old male who comes in, patient apparently had been falling several times at home, multiple bruises to his legs and knees. The patient has been feeling worse in the last week, feeling more weak and not quite as sharp as he usually is. The patient does have a history of diabetes and he says his legs just keep going out from underneath him. The patient was admitted, it looks like his CT scan showed that he has a left upper lobe pneumonia and will receive IV antibiotic therapy, may be this is the cause of his generalized weakness and ____ blood sugars under better control. PAST MEDICAL HISTORY: Bilateral knee surgery, coronary artery disease, hypercholesterolemia, sleep apnea, orthopedic surgery, endocrine disorders. IMMUNIZATIONS: Pneumococcal vaccination. ALLERGIES: No known drug allergies. FAMILY HISTORY: Noncontributory. HOME MEDICATIONS: Zyrtec, cefdinir, midodrine for orthostatic hypotension, pravastatin 20, lisinopril 20, aspirin 81, gabapentin, Wellbutrin, bupropion XL, Nexium, insulin Lantus and short-acting NovoLog, lidocaine patches. SOCIAL HISTORY: Denies smoking, alcohol or drug use. Lives at home. REVIEW OF SYSTEMS: As noted, generalized weakness deterioration in the last week, some shortness of breath, no chest pain. Denies fever, chills, night sweats. Denies abdominal pain. Denies any melena, hematochezia, hematemesis and neurologically, the patient was stable. PHYSICAL EXAMINATION: GENERAL: This is a pleasant white male in moderate amount of distress. VITAL SIGNS: Blood pressure approximately anywhere from 150/70 down to 100/65, respiratory rate 20, pulse 96. He is afebrile, low temperatures, did drop down to 97. He is on 2 liters at 96%. HEENT: The patient's head was atraumatic, normocephalic. Eyes: PERRLA without jaundice. The mouth and throat were normal. NECK: Supple without JVD, carotid bruits or thyromegaly. LUNGS: Diminished throughout, but basically clear. CARDIOVASCULAR: Regular sinus rhythm, S1, S2, without murmur, rub, thrill, or extra heart sounds. ABDOMEN: Soft, nontender, no rebounding, no guarding. Positive bowel sounds, no hepatosplenomegaly was noted. EXTREMITIES: No clubbing, cyanosis, nor edema. NEUROLOGIC: The patient is alert and oriented. Imaging, because he had been falling had CT neck showed probably some muscle spasm; but developing consolidation in the left upper lobe, CT of the chest will confirm this. Otherwise, we will continue on IV antibiotic therapy and make further evaluation on him as indicated. IMPRESSION: Pneumonia of unknown etiology, community acquired; generalized weakness with syncope, multiple falls, multiple abrasions to the legs, type 2 diabetes, morbid obesity, moderate protein malnutrition. ROBIN ESPARZA MD DR: DOMONIQUE/sanam JOB#: [id number] / [id number]
[2020-09-03 23:24] VITALS: BP 125/76
[2020-09-04 05:43] VITALS: BP 127/78
[2020-09-04] MEDS: MIDODRINE 2.5 MG TABLET PO SCH ×3 (07:00→18:00)
[2020-09-04] MEDS: INSULIN LISPRO 300 UNITS/3 ML VIAL. SQ SCH ×3 (08:01→16:39)
[2020-09-04] MEDS: CETIRIZINE HCL 10 MG TABLET PO SCH (08:02)
[2020-09-04] MEDS: PANTOPRAZOLE 40 MG TABLET. PO SCH ×2 (08:02→16:37)
[2020-09-04] MEDS: LACTOBACILLUS RHAMNOSUS GG 1 CAPSULE. PO SCH ×2 (08:02→21:02)
[2020-09-04] MEDS: FLUTICASONE 50MCG/NASAL SPRAY 16GM BOTTLE. NS SCH (08:02)
[2020-09-04] MEDS: DOCUSATE SODIUM 100 MG CAPSULE PO SCH (08:03)
[2020-09-04] MEDS: predniSONE 5 MG TABLET PO SCH (08:03)
[2020-09-04] MEDS: LISINOPRIL 20 MG TABLET PO SCH (08:04)
[2020-09-04] MEDS: buPROPion XL 150 MG TAB.ER.24H PO SCH ×2 (08:04→21:02)
[2020-09-04] MEDS: ASPIRIN CHEWABLE 81 MG TABLET. PO SCH (08:04)
[2020-09-04] MEDS: CITALOPRAM 20 MG TABLET. PO SCH (08:04)
[2020-09-04] MEDS: GABAPENTIN 300 MG CAPSULE. PO SCH ×2 (08:05→21:05)
[2020-09-04] MEDS: LIDOCAINE (700MG/PATCH) PATCH. TD SCH (08:09)
[2020-09-04 11:27] VITALS: BP 79/52
[2020-09-04 16:09] VITALS: BP 88/55
--- NOTE | 2020-09-04 19:01 | PN ---
DATE: SUBJECTIVE: A 70-year-old male in with pneumonia. He has been feeling somewhat confused, disoriented, having trouble walking. He has been falling multiple times with multiple bruises to his legs. The patient's CT scan of his chest did show that the patient had a consolidation in the left upper lobe, which needs to be followed up as an outpatient. We will continue to monitor him there. OBJECTIVE: VITAL SIGNS: Blood pressure approximately 88/55 (NC), respiratory rate 16, pulse 72, afebrile. GENERAL: The patient is alert and oriented, although he does seem a little bit confused. LUNGS: Diminished throughout, poor movement of air. CARDIOVASCULAR: Regular sinus rhythm. ABDOMEN: Soft, nontender, no rebound or guarding. Positive bowel sounds, no hepatosplenomegaly. IMPRESSION: Therefore, pneumonia of unknown etiology, community acquired; generalized weakness with syncope, multiple falls, multiple abrasions of the leg, type 2 diabetes, dementia, moderate protein malnutrition. ROBIN ESPARZA MD DR: DOMONIQUE/sanam JOB#: [id number] / [id number]
[2020-09-04 20:05] VITALS: BP 119/74
[2020-09-04] MEDS: INSULIN GLARGINE SYRINGE. SQ SCH (21:00)
[2020-09-04] MEDS: PATCH REMOVAL. MC SCH (21:00)
[2020-09-04] MEDS: ATORVASTATIN CALCIUM 10 MG TABLET. PO SCH (21:02)
[2020-09-04 22:43] VITALS: BP 134/77
[2020-09-05 05:25] VITALS: BP 147/80
[2020-09-05] MEDS: MIDODRINE 2.5 MG TABLET PO SCH ×2 (07:00→12:10)
[2020-09-05] MEDS: INSULIN LISPRO 300 UNITS/3 ML VIAL. SQ SCH ×2 (08:24→12:08)
[2020-09-05] MEDS: FLUTICASONE 50MCG/NASAL SPRAY 16GM BOTTLE. NS SCH (08:26)
[2020-09-05] MEDS: predniSONE 5 MG TABLET PO SCH (08:27)
[2020-09-05] MEDS: buPROPion XL 150 MG TAB.ER.24H PO SCH (08:27)
[2020-09-05] MEDS: LACTOBACILLUS RHAMNOSUS GG 1 CAPSULE. PO SCH (08:27)
[2020-09-05] MEDS: CETIRIZINE HCL 10 MG TABLET PO SCH (08:27)
[2020-09-05] MEDS: GABAPENTIN 300 MG CAPSULE. PO SCH (08:28)
[2020-09-05] MEDS: PANTOPRAZOLE 40 MG TABLET. PO SCH (08:28)
[2020-09-05] MEDS: ASPIRIN CHEWABLE 81 MG TABLET. PO SCH (08:28)
[2020-09-05] MEDS: LISINOPRIL 20 MG TABLET PO SCH (08:29)
[2020-09-05] MEDS: DOCUSATE SODIUM 100 MG CAPSULE PO SCH (08:29)
[2020-09-05] MEDS: CITALOPRAM 20 MG TABLET. PO SCH (08:29)
[2020-09-05] MEDS: LIDOCAINE (700MG/PATCH) PATCH. TD SCH (08:32)
[2020-09-05 10:50] VITALS: BP 107/70
[2020-09-05 12:10] VITALS: BP 107/70
--- NOTE | 2020-09-05 13:19 | DISCH ---
HOME HEALTH DISCHARGE/MEDS DISCHARGE INFORMATION: Discharge Date: Sep 05, 2020 Final Diagnosis: Problems Medical Problems: (1) Falls Status: Acute (2) Weakness Status: Acute 3.Pneumonia Condition on Discharge: Stable CODE STATUS: Code Status: Full HOME HEALTH: Face to Face: I certify this patient is under my care and that I, or a nurse practitioner or physician's press operator assistant working with me, had a face to face encounter that meets the physician face to face encounter requirements with this patient on 08/12 Medical Condition(s): DM, Falls, Pneumonia Fdc For: Admin/Educate Injections, Assess Cardiopulm Status, Assess & Educate Safety, Assess/Skilled Observatio, Medication Management Physical Therapy For: Evalulation/Treatment Occupational Therapy For: Evaluation/Treatment POST DISCHARGE ORDERS: Activity Instructions for Disc: No restrictions Weight Bearing Status after Di: No restrictions DIET AFTER DISCHARGE: ADA CERTIFICATION STATEMENT: Certification Statement: Based on the above finding, I certify that this patient is confined to the home and needs intermittent prison care, physical therapy and/or speech therapy, or continues to need occupational therapy.~ This patient is under my care, and I have initiated the establishment of the plan of care.~ This patient will be followed by myself or a community physician who will periodically review the plan of care. DISCHARGE MEDICATIONS: Home Meds Active Scripts Lidocaine (Lidocaine PATCH ) 1 Each Adh..patch, 1 PATCH TD DAILY for pain, #10 PATCH 1 Refill Prov:ROBIN ESPARZA MD 07/10/20 Prednisone (PREDNISONE) 5 Mg Tablet, 15 MG PO DAILY for inflammation, #12 TAB take 3 tablets daily and decrease by 1 tablet every 3rd day until gone (3,3,2,2,1,1,) Prov:ROBIN ESPARZA MD 07/10/20 Lactobacillus Rhamnosus Gg (CULTURELLE) 1 Each Cap.sprink, 1 CAP PO BID for probiotic for 60 Days, #120 CAP 2 Refills Prov:ROBIN ESPARZA MD 07/10/20 Midodrine Hcl (MIDODRINE HCL) 2.5 Mg Tablet, 2.5 MG PO [id number] for hypotension for 30 Days, #90 TAB 3 Refills Prov:ROBIN ESPARZA MD 07/10/20 Cefdinir (CEFDINIR) 300 Mg Capsule, 300 MG PO BID for infection for 5 Days, #10 CAP Prov:ROBIN ESPARZA MD 07/10/20 Docusate Sodium (COLACE) 100 Mg Capsule, 100 MG PO DAILY for constipation for 90 Days, #90 CAP 9 Refills Prov:ROBIN ESPARZA MD 07/10/20 Fluticasone Propionate (FLUTICASONE PROPIONATE NASAL SPRAY) 16 Gm Crawford.susp, 2 SPRAY NS DAILY for sinus congestion, #2 SPRAY 2 Refills Prov:ROBIN ESPARZA MD 07/10/20 Insulin Aspart (NOVOLOG FLEXPEN) 100 Unit/1 Ml Insuln.pen, 15 UNITS SQ TIDAC for 30 Days, #3 EACH Prov:ROBIN ESPARZA MD 07/06/17 Reported Medications Aspirin (ASPIRIN) 81 Mg Tab.chew, 81 MG PO DAILY for HEART HEALTH LAST DOSE GIVEN: DATE: TODAY TIME: AM NEXT DOSE DUE: DATE: TOMORROW TIME: AM 07/08/20 Pravastatin Sodium (PRAVASTATIN SODIUM) 20 Mg Tablet, 1 TAB PO QHS for HIGH CHOLESTEROL LAST DOSE GIVEN: DATE: YESTERDAY TIME: AT BEDTIME NEXT DOSE DUE: DATE: TODAY TIME: AT BEDTIME 07/02/17 Escitalopram Oxalate (ESCITALOPRAM OXALATE) 10 Mg Tablet, 1 TAB PO DAILY for DEPRESSION LAST DOSE GIVEN: DATE: TODAY TIME: AM NEXT DOSE DUE: DATE: TOMORROW TIME: AM 07/02/17 Cetirizine Hcl (CETIRIZINE HCL) 10 Mg Tablet, 1 TAB PO DAILY for ALLERGIES LAST DOSE GIVEN: DATE: TODAY TIME: AM NEXT DOSE DUE: DATE: TOMORROW TIME: AM 07/02/17 Insulin Glargine,Hum.rec.anlog (LANTUS SOLOSTAR) 100 Unit/1 Ml Insuln.pen, 50 UNIT SQ QHS for HIGH BLOOD SUGAR-DIABETES LAST DOSE GIVEN: DATE: YESTERDAY TIME: AT BEDTIME NEXT DOSE DUE: DATE: TODAY TIME: AT BEDTIME 07/02/17 Lisinopril (LISINOPRIL) 20 Mg Tablet, 1 TAB PO DAILY for HIGH BLOOD PRESSURE NOT GIVEN IN THE HOSPITAL NEXT DOSE DUE: DATE: TOMORROW TIME: AM 07/02/17 Bupropion Hcl (BUPROPION XL) 150 Mg Tab.er.24h, 1 TAB PO BID for DEPRESSION LAST DOSE GIVEN: DATE: TODAY TIME: AM NEXT DOSE DUE: DATE: TODAY TIME: PM 07/02/17 Esomeprazole Magnesium (NEXIUM CAPSULE) 40 Mg Capsule.dr, 1 CAP PO BID for HEARTBURN LAST DOSE GIVEN: DATE: TODAY TIME: AM NEXT DOSE DUE: DATE: TODAY TIME: PM 07/02/17 Gabapentin (NEURONTIN ) 300 Mg Capsule, 900 MG PO BID for NERVE PAIN LAST DOSE GIVEN: DATE: TODAY TIME: AM NEXT DOSE DUE: DATE: TODAY TIME: PM 07/02/17 ROBIN ESPARZA MD Sep 05, 2020 13:19
== END 2020-09-05 14:30 | disposition home health service (06) | DRG 177 ==
LOC: ER 11:56 → 1 SOUTH 14:32
PROVIDERS: ADMIT Family Medicine; ATTEND Family Medicine
DX: J15.6 Pneumonia due to other Gram-negative bacteria (principal); N17.0 Acute kidney failure with tubular necrosis; J44.0 Chronic obstructive pulmonary disease with (acute) lower respiratory infection; E44.0 Moderate protein-calorie malnutrition; J15.9 Unspecified bacterial pneumonia; E11.40 Type 2 diabetes mellitus with diabetic neuropathy, unspecified; E66.01 Morbid (severe) obesity due to excess calories; E78.00 Pure hypercholesterolemia, unspecified; F03.90 Unspecified dementia, unspecified severity, without behavioral disturbance, psychotic disturbance, mood disturbance, and anxiety; I10 Essential (primary) hypertension; I25.10 Atherosclerotic heart disease of native coronary artery without angina pectoris; G90.8 Other disorders of autonomic nervous system; M53.82 Other specified dorsopathies, cervical region; R29.6 Repeated falls; Z87.891 Personal history of nicotine dependence; Z90.49 Acquired absence of other specified parts of digestive tract; Z96.659 Presence of unspecified artificial knee joint; F32.9 Major depressive disorder, single episode, unspecified; Z20.822 Contact with and (suspected) exposure to COVID-19; W18.39XA Other fall on same level, initial encounter; Y93.89 Activity, other specified; Y92.89 Other specified places as the place of occurrence of the external cause; Y99.8 Other external cause status; S80.812A Abrasion, left lower leg, initial encounter; S80.811A Abrasion, right lower leg, initial encounter; Z68.32 Body mass index [BMI] 32.0-32.9, adult
CPT/HCPCS: 36415; 70450; 71045; 71250; 72125; 80048; 80053; 82947; 83605; 85025; 87426; 93005; J0696; J1815; J1956; J7512; U0003; 97110; 97116; 97530; 97535; 99285-25

== ENCOUNTER → 2020-10-30 | Outpatient (CLI) | payer MEDICARE, BC ==
[2020-10-30] MEDS: REGADENOSON 0.4 MG/5 ML DISP.SYRIN. IV ONE (10:00)
--- NOTE | 2020-10-30 15:36 | RAD ---
MR#: [id number] Date of Study: 10/30/2020 Ordering Physician: GILA SÁNCHEZ Referring Physician: JEREMY HAYNES Tech: RENETTA King APPROVED REPORT Test Type: Pharmacological Stress Nurse/Tech: RENETTA King Test Indications: [place] Cardiac History: risk factors Medications: see EHR Medical History: see EHR Resting ECG: SR Resting Heart Rate: 89 bpm Resting Blood Pressure: 143/75mmHg Pretest Chest Pain: None Nurse/Tech Notes Consent: The procedure was explained to the patient in lay terms. Informed consent was witnessed. [place] eout was entered into [employer] History and Stress Test performed by RENETTA King Pharm. Details Pharmacologic stress testing was performed using 0.4mg per 5ml of regadenoson given intravenously ove r 7-10 seconds. POST EXERCISE Reason for Termination: Infusion complete Max HR: 97 bpm Max Blood Pressure: 106/60mmHg Blood Pressure response to exercise: Normal blood pressure response during stress. Chest Pain: No. INTERPRETATION Stress EKG Conclusion: No evidence of stress induced EKG changes. Imaging Protocol IMAGE PROTOCOL: Rest Tc-99m/stress Tc-99m 1 day Rest: Stress: Viability: Radiopharm.Tc99m PddnxfwihFz32a Sestamibi Xbkk71dYg 33mCi Duration 15min. 10min. Img Date 10/30/2020 10/30/2020 Inj-Img Tpsq89okp. 60min. Rest Admin Site:IV - Right AntecubitalAdministrator: RENETTA King Stress Admin Site: IV - Right AntecubitalAdministrator: RENETTA King STRESS DATA End Diast. Vol.78.0mlAv. Heart Rate85.0bpm End Syst. Vol.11.0mlCO Index BSA0.0L/min Myocardial Maxm952.0gEject. Rkytdqmu54.0% Stress Rates Pk. Fill Rate4.26EDV/secLVtime Pk. Fill 195.04msec Pk. Empty Rate6.01ESV/secLVtime Pk. Ewkoi528.90msec 1/3 Pk. Fill0.88EDV/sec Stress Scores Regional WT1.00Summed WT5.00 Regional WM0.00Summed WM0.00 The rest and stress images show normal perfusion, normal contraction and thickening. LV Perf. Quant 17 Seg. SSS1.00 17 Seg. SRS2.00 17 Seg. SDS0.00 Stress Defect Extent (% LAD)0.00Rest Defect Extent (% LAD)0.00Rev. Defect Extent (% LAD)0.00 Stress Defect Extent (% LCX) 13.80Rest Defect Extent (% LCX)17.50Rev. Defect Extent (% LCX)1.30 Stress Defect Extent (% RCA)0.00Rest Defect Extent (% RCA)0.00Rev. Defect Extent (% RCA)0.00 Stress Defect Extent (% WILLIAM)2.40Rest Defect Extent (% WILLIAM)3.00Rev. Defect Extent (% WILLIAM)0.20 Other Information Quality:Average Risk Assessment: Low Risk Conclusion 1. No evidence of EKG changes with stress testing. 2. Normal perfusion at stress/rest. 3. Low risk study. 4. EF > 60%. Signed by : Filemon Hobson, Electronically Approved : 10/30/2020 15:36:02
== END ==
LOC: NM 07:44
PROVIDERS: ATTEND Internal Medicine Cardiovascular Disease
DX: R06.00 Dyspnea, unspecified (principal)
CPT/HCPCS: 78452; 93017; A9500; J2785

== ENCOUNTER 2021-04-27 03:25 | Inpatient (IN) | payer MEDICARE, BC ==
[~2021-04-27] VITALS: Ht 180.3 cm; Wt 79.6 kg
--- NOTE | 2021-04-27 04:12 | PHYS DOC ---
Past History Past Medical History: COPD, Diabetes, Hypertension Past Surgical History: Appendectomy, Knee Replacement Smoking: Quit Greater Than 1 Year Alcohol Use: None Drug Use: None General Adult EDM: Chief Complaint: MECHANICAL FALL HPI: HPI: 71-year-old male presents with multiple falls. The patient is accompanied by family. The family member tells me that the patient has had multiple falls since . He has episodes where he will have more trouble with his balance and be less active for a day or 2, but this is the fourth day and he seems to be wanting to sleep more, eat less and continues to have balance issues. The patient uses intermittent oxygen at home, but is not on it every day or all the time. He has a history of pneumonia about a year ago and that is when he started to need oxygen. Patient has not been vaccinated against COVID- 19. No reported fever at home. Review of Systems: Review of Systems: Constitutional: Denies fever or chills. Fatigue, decreased appetite. Eyes: Denies change in visual acuity HENT: Denies nasal congestion or sore throat Respiratory: shortness of breath Cardiovascular: Denies chest pain or edema GI: Denies abdominal pain, nausea, vomiting, bloody stools or diarrhea : Denies dysuria Musculoskeletal: Denies back pain or joint pain Integument: Denies rash Neurologic: Frequent falls. Denies headache, focal weakness or sensory changes Endocrine: Denies polyuria or polydipsia Lymphatic: Denies swollen glands Psychiatric: Denies depression or anxiety Allergies: Allergies: Allergies Coded Allergies Type Severity Reaction Last Updated Verified No Known Drug Allergies 07/02/17 No Physical Exam: PE: Constitutional: Well developed, well nourished, no acute distress, non-toxic appearance. [] HENT: Normocephalic, atraumatic, bilateral external ears normal, oropharynx moist, no oral exudates, nose normal. [] Eyes: PERRLA, EOMI, conjunctiva normal, no discharge. [] Neck: Normal range of motion, no tenderness, supple, no stridor. [] Cardiovascular: Heart rate regular rhythm, no murmur [] Lungs & Thorax: Bilateral breath sounds diminished but clear to auscultation [] Abdomen: Bowel sounds normal, soft, no tenderness, no masses, no pulsatile masses. [] Skin: Warm, dry, no erythema, no rash. [] Back: No tenderness, no CVA tenderness. [] Extremities: No tenderness, no cyanosis, no clubbing, ROM intact, no edema. [] Neurologic: Alert and oriented X 3, sleepy but arousable. Normal motor function, normal sensory function, no focal deficits noted. [] Psychologic: Affect normal, judgement normal, mood normal. [] EKG: EKG: [] Radiology/Procedures: Radiology/Procedures: [] Impressions: EXAMINATION: CT HEAD/BRAIN WO CLINICAL HISTORY: Multiple falls TECHNIQUE: Serial axial images without IV contrast were obtained from the vertex to the foramen magnum. CT Dose Reduction Employed: One or more of the following individualized dose reduction techniques were utilized for this examination: 1. Automated exposure control 2. Adjustment of the mA and/or kV according to patient size 3. Use of iterative reconstruction technique. COMPARISON: 09/02/2020 FINDINGS: Acute Change: No evidence of an acute contusion or other acute parenchymal process. Hemorrhage: No evidence of acute intracranial hemorrhage. Mass Lesion/Mass Effect: No evidence of intracranial mass or extraaxial fluid collection. No significant mass effect. Chronic Change: Scattered patchy foci of hypoattenuation in the supratentorial white matter, nonspecific but likely represents mild microvascular ischemia. Atherosclerotic calcification of the bilateral carotid siphons. Parenchyma: Moderate generalized volume loss. Ventricles: Ventricular enlargement concordant with degree of parenchymal volume loss. Paranasal Sinuses and Skull Base: Visualized paranasal sinuses clear. Visualized skull base and soft tissues unremarkable. IMPRESSION: No evidence of acute intracranial abnormality or significant interval change. Electronically signed by: Robbie Kennedy DO (04/27/2021 5:40 AM) [facility] DICTATED AND SIGNED BY: ROBBIE KENNEDY DO DATE: 04/27/21 0537 CC: GEORGETTE RAMIREZ DO; ROBIN ESPARZA MD ~MTH0 0 EXAMINATION: CT OF THE WITHOUT IV CONTRAST CLINICAL HISTORY: Left hip pain, multiple falls TECHNIQUE: Noncontrast serial axial images obtained through the bony pelvis with sagittal and coronal reconstructions. CT Dose Reduction Employed: One or more of the following individualized dose reduction techniques were utilized for this examination: 1. Automated exposure control 2. Adjustment of the mA and/or kV according to patient size 3. Use of iterative reconstruction technique. COMPARISON: None FINDINGS: No evidence of acute fracture. Moderate degenerative changes bilateral hips. SI joints and pubic symphysis maintained. Partially visualized lumbar degenerative changes. Visualized muscles and tendons unremarkable on limited evaluation. Vascular calcifications. Sigmoid diverticulosis without evidence of acute diverticulitis. IMPRESSION: No evidence of acute osseous abnormality. Electronically signed by: Robbie Kennedy DO (04/27/2021 5:45 AM) [facility] DICTATED AND SIGNED BY: ROBBIE KENNEDY DO DATE: 04/27/21539 CC: GEORGETTE RAMIREZ DO; ROBIN ESPARZA MD ~MTH0 0 EXAMINATION: XR CHEST 1V CLINICAL HISTORY: Shortness of breath EXAM DATE/TIME: 04/27/2021 4:31 AM COMPARISON: 09/02/2020 FINDINGS: Lines, Tubes, and Devices: None. Cardiomediastinal Silhouette: Normal heart size. Lungs and Pleura: Mild bibasilar subsegmental atelectasis and/or scarring, similar to prior study. Bones and Soft Tissues: Degenerative changes in the thoracic spine. IMPRESSION: No evidence of acute cardiopulmonary abnormality or significant interval change. Electronically signed by: Robbie Kennedy DO (04/27/2021 5:46 AM) [facility] DICTATED AND SIGNED BY: ROBBIE KENNEDY DO DATE: 04/27/2150 CC: GEORGETTE RAMIREZ DO; ROBIN ESPARZA MD ~MTH0 0 Heart Score: C/O Chest Pain: N/A Risk Factors: Risk Factors: DM, Current or recent (<one month) smoker, HTN, HLP, family history of CAD, obesity. Risk Scores: Score 0 - 3: 2.5% MACE over next 6 weeks - Discharge Home Score 4 - 6: 20.3% MACE over next 6 weeks - Admit for Clinical Observation Score 7 - 10: 72.7% MACE over next 6 weeks - Early Invasive Strategies Course & Med Decision Making: Course & Med Decision Making Pertinent Labs and Imaging studies reviewed. (See chart for details) The patient is Covid positive in the ER. His CBC is unremarkable. His glucose is 450. I will give 10 units insulin IV. The patient is requiring supplemental oxygen. I will admit him to the hospital. I spoke with Dr. Esparza and he has accepted the patient for admission. [] Miki Disclaimer: Miki Disclaimer: This electronic medical record was generated, in whole or in part, using a voice recognition dictation system. Departure Departure: Impression: Primary Impression: COVID-19 Disposition: 09 ADMITTED INPATIENT Admitting Physician: Robin Esparza Condition: STABLE Referrals: ROBIN ESPARZA MD (PCP) GEORGETTE RAMIREZ DO Apr 27, 2021 04:12
[2021-04-27 04:38] LABS: BASO % 0 % (0-3); EOS % 0 % (0-3); HEMATOCRIT 42.5 % (39.0-53.0); HEMOGLOBIN 14.2 g/dL (13.0-17.5); LYMPH # 0.3 x10^3/uL (1.0-4.8); LYMPH % 3 % (24-48); MEAN CORPUSCULAR HEMOGLOBIN 30 pg (25-35); MEAN CORPUSCULAR HGB CONC 33 g/dL (31-37); MEAN CORPUSCULAR VOLUME 91 fL (79-100); MONO # 0.6 x10^3/uL (0.0-1.1); MONO % 7 % (0-9); NEUT # 7.5 x10^3uL (1.8-7.7); NEUT % 89 % (31-73); PLATELET COUNT 283 x10^3/uL (140-400); RED BLOOD COUNT 4.69 x10^6/uL (4.30-5.70); RED CELL DISTRIBUTION WIDTH 13.7 % (11.5-14.5); WHITE BLOOD COUNT 8.4 x10^3/uL (4.0-11.0)
[2021-04-27] MEDS ORDERED: gabapentin PO (04:40)
[2021-04-27 04:48] LABS: CALCIUM 8.4 mg/dL (8.5-10.1); CREATININE 1.3 mg/dL (0.7-1.3); GFR 54.3; POTASSIUM 4.1 mmol/L (3.5-5.1)
[2021-04-27 04:53] LABS: ALBUMIN 2.8 g/dL (3.4-5.0); ALBUMIN/GLOBULIN RATIO 0.8 (1.0-1.7); TOTAL BILIRUBIN 0.5 mg/dL (0.2-1.0); TOTAL PROTEIN 6.1 g/dL (6.4-8.2)
[2021-04-27] MEDS ORDERED: DEXAMETHASONE SOD PHOS 10 MG/ML VIAL. IVP ONE (05:30)
[2021-04-27] MEDS ORDERED: ONDANSETRON PF 4 MG/2 ML VIAL. IVP PRN (05:30)
[2021-04-27] MEDS ORDERED: AZITHROMYCIN 500 MG in IV NORMAL SALINE 250ML 250 ML IV ONE (05:30)
--- NOTE | 2021-04-27 05:43 | RAD ---
EXAMINATION: CT HEAD/BRAIN WO CLINICAL HISTORY: Multiple falls TECHNIQUE: Serial axial images without IV contrast were obtained from the vertex to the foramen magnu m. CT Dose Reduction Employed: One or more of the following individualized dose reduction techniques wer e utilized for this examination: 1. Automated exposure control 2. Adjustment of the mA and/or kV ac cording to patient size 3. Use of iterative reconstruction technique. COMPARISON: 09/02/2020 FINDINGS: Acute Change: No evidence of an acute contusion or other acute parenchymal process. Hemorrhage: No evidence of acute intracranial hemorrhage. Mass Lesion/Mass Effect: No evidence of intracranial mass or extraaxial fluid collection. No signific ant mass effect. Chronic Change: Scattered patchy foci of hypoattenuation in the supratentorial white matter, nonspeci fic but likely represents mild microvascular ischemia. Atherosclerotic calcification of the bilateral carotid siphons. Parenchyma: Moderate generalized volume loss. Ventricles: Ventricular enlargement concordant with degree of parenchymal volume loss. Paranasal Sinuses and Skull Base: Visualized paranasal sinuses clear. Visualized skull base and soft tissues unremarkable. IMPRESSION: No evidence of acute intracranial abnormality or significant interval change. Electronically signed by: Robbie Powers DO (04/27/2021 5:40 AM) [facility]
[2021-04-27 05:46] LABS: BACTERIA,URINE 0 /HPF (0-FEW); BILIRUBIN,URINE NEG (NEG); CLARITY,URINE CLEAR; COLOR,URINE YELLOW; GLUCOSE,URINE >=1000 mg/dL (NEG); NITRITE,URINE NEG (NEG); RBC,URINE OCC /HPF (0-2); SQUAMOUS EPITHELIAL CELL,UR OCC /LPF; UROBILINOGEN,URINE 0.2 mg/dL (0.2 mg/dL); WBC,URINE OCC /HPF (0-4)
--- NOTE | 2021-04-27 05:47 | RAD ---
EXAMINATION: CT OF THE WITHOUT IV CONTRAST CLINICAL HISTORY: Left hip pain, multiple falls TECHNIQUE: Noncontrast serial axial images obtained through the bony pelvis with sagittal and coronal reconstructions. CT Dose Reduction Employed: One or more of the following individualized dose reduction techniques wer e utilized for this examination: 1. Automated exposure control 2. Adjustment of the mA and/or kV ac cording to patient size 3. Use of iterative reconstruction technique. COMPARISON: None FINDINGS: No evidence of acute fracture. Moderate degenerative changes bilateral hips. SI joints and pubic symp hysis maintained. Partially visualized lumbar degenerative changes. Visualized muscles and tendons unremarkable on limited evaluation. Vascular calcifications. Sigmoid d iverticulosis without evidence of acute diverticulitis. IMPRESSION: No evidence of acute osseous abnormality. Electronically signed by: Robbie Powers DO (04/27/2021 5:45 AM) [facility]
--- NOTE | 2021-04-27 05:49 | RAD ---
EXAMINATION: XR CHEST 1V CLINICAL HISTORY: Shortness of breath EXAM DATE/TIME: 04/27/2021 4:31 AM COMPARISON: 09/02/2020 FINDINGS: Lines, Tubes, and Devices: None. Cardiomediastinal Silhouette: Normal heart size. Lungs and Pleura: Mild bibasilar subsegmental atelectasis and/or scarring, similar to prior study. Bones and Soft Tissues: Degenerative changes in the thoracic spine. IMPRESSION: No evidence of acute cardiopulmonary abnormality or significant interval change. Electronically signed by: Robbie Powers DO (04/27/2021 5:46 AM) [facility]
--- NOTE | 2021-04-27 05:50 | RAD ---
EXAMINATION: XR SHOULDER_LEFT 2+ VIEWS CLINICAL HISTORY: Left shoulder injury/pain TECHNIQUE: XR SHOULDER_LEFT 2+ VIEWS COMPARISON: None FINDINGS/ IMPRESSION: Glenohumeral joint alignment maintained. Moderate hypertrophic acromioclavicular degenerative changes with prominent subacromial spur. No acute fracture. Narrowing of the acromiohumeral interval, compat ible with sequelae of chronic full-thickness rotator cuff tear. Electronically signed by: Robbie Powers DO (04/27/2021 5:48 AM) [facility]
--- NOTE | 2021-04-27 06:34 | EKG ---
[address] [address] Test Date: 2021-04-27 Test Time: 05:20:49 Pat Name: LILIA BENDER Department: Room: Gender: M [employer] Professional: MARYAM : 1950 Requested By: GEORGETTE RAMIREZ Order Number: [id number] Reading MD: Filemon Hobson MD Measurements Intervals [place] Rate: 84 P: -37 VA: 180 QRS: 1 QRSD: 84 T: 41 QT: 390 QTc: 464 Interpretive Statements SINUS RHYTHM LOW LIMB LEAD VOLTAGE Electronically Signed On 04-27-2021 10:16:48 CDT by Filemon Hobson MD
[2021-04-27] MEDS ORDERED: IV NORMAL SALINE 250ML 250 ML ONE (07:10)
[2021-04-27] MEDS ORDERED: IV NORMAL SALINE 50ML 50 ML ONE (07:10)
[2021-04-27] MEDS ORDERED: AZITHROMYCIN 500 MG VIAL. IV ONE (07:11)
[2021-04-27] MEDS ORDERED: cefTRIAXone SODIUM 1 GM VIAL ONE (07:11)
[2021-04-27 08:27] VITALS: BP 149/82
[2021-04-27] MEDS ORDERED: INSULIN GLARGINE SYRINGE. SQ SCH ×2 (09:30→21:00)
[2021-04-27] MEDS ORDERED: CYANOCOBALAMIN (VITAMIN B-12) 1,000 MCG/ML VIAL. IM ONE (09:30)
[2021-04-27] MEDS ORDERED: INSULIN LISPRO 300 UNITS/3 ML VIAL. SQ ONE (09:45)
--- NOTE | 2021-04-27 09:53 | HP ---
ADMIT DATE: 04/27/2021 HISTORY OF PRESENT ILLNESS: A 71-year-old male came in through the Emergency Room with a chief complaint by family that he has had multiple falls. He is having trouble with his balance. This has actually been going on for some time, although recently he has stopped eating and not sleeping very much at all. He has tremendous problems with balance, probably diabetic neuropathy as the patient's sugars are poorly controlled, in the 400s-500s for that matter. The patient otherwise has chronic other medical problems such as COPD, emphysema and the like, which all contribute to his generalized weakness. The CT head in the Emergency Room showed no obvious problems there. In any case, the patient was admitted for further evaluation of his poorly controlled diabetes as well as his overall positive SARS-CoV-2 pneumonia as well as his poorly controlled diabetes. PAST MEDICAL HISTORY: Coronary artery disease; hypercholesterolemia; respiratory disorders; sleep apnea; orthopedic surgery; bilateral knee surgery; endocrine disorders of diabetes, poorly controlled; pneumococcal vaccinations up to date. No COVID vaccine. ALLERGIES: None known. SOCIAL HISTORY: The patient has about a [id number] history of smoking, occasional alcohol use, no hard drug use. The patient is a FULL CODE. REVIEW OF SYSTEMS: The patient has just generalized weakness, a little bit of confusion, but other than that, he says he does not have any chest pain, shortness of breath, abdominal pain, nausea, vomiting, melena, hematochezia, hematemesis. He has problems with urination, does have a leg bag on. Neurologically, the patient is alert and oriented, baseline for him, with some mild episodes of confusion and generalized weakness, numbness, tingling, burning in the feet. PHYSICAL EXAMINATION: GENERAL: Pleasant white male, looking somewhat older than stated age. VITAL SIGNS: Blood pressure 142/75, respiratory rate 18, pulse 88, afebrile, oxygen saturation 93. NEUROLOGIC: The patient is alert and oriented. Speech is fluent and appropriate. HEENT: The patient's eyes show marked pupil constriction. The mouth and throat were normal. Poor dentition. Dry mucous membranes. NECK: Supple. LUNGS: Diminished throughout, but clear. CARDIOVASCULAR: Regular sinus rhythm, S1, S2, without murmur, rub, thrill, or extra heart sounds. ABDOMEN: The patient's abdomen is protuberant, soft, nontender. No rebound or any guarding. Positive bowel sounds. No hepatosplenomegaly. EXTREMITIES: No clubbing, cyanosis, nor edema. Pulses noted distally. The patient has decreased sensation to the lower extremities. Actually strength of both the upper and lower extremities, flexion and extension of both the upper and lower extremities seem to be pretty well intact. It is the sensory system that seems to be affected with this. LABORATORY DATA: The patient's CBC was basically within range. Chemistries outside of the sugar of 450, slightly low calcium, but he has a low albumin of 2.8. Troponins were negative. Urine showed some mild ketones. Positive SARS. IMPRESSION: SARS-CoV-2 pneumonia, poorly controlled diabetes, ketoacidosis, diabetic neuropathy, multiple falls at home and severe protein malnutrition. The patient will be monitored carefully, get his sugars under control and treatment for this SARS-COVID and make further evaluation on him for results of the other testing. PT, OT said he also was told he needed braces for his legs to help him with that. We will have PT, OT evaluate him. PAKO DR: Cameron TID: [id number]
[2021-04-27 11:00] VITALS: BP 140/80
[2021-04-27] MEDS: INSULIN LISPRO 300 UNITS/3 ML VIAL. SQ SCH ×4 (11:30→17:27)
--- NOTE | 2021-04-27 12:26 | EKG ---
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
[2021-04-27] MEDS: buPROPion XL 150 MG TAB.ER.24H PO SCH ×2 (12:39→20:18)
[2021-04-27] MEDS: DOCUSATE SODIUM 100 MG CAPSULE PO SCH (12:40)
[2021-04-27] MEDS: ASPIRIN CHEWABLE 81 MG TABLET. PO SCH (12:40)
[2021-04-27] MEDS: TAMSULOSIN 0.4 MG CAP.ER.24H. PO SCH (12:40)
[2021-04-27] MEDS: GABAPENTIN 300 MG CAPSULE. PO SCH ×2 (12:40→20:18)
[2021-04-27] MEDS: CHOLECALCIFEROL (VITAMIN D3) 1,000 UNIT TABLET PO SCH (12:40)
[2021-04-27] MEDS: CITALOPRAM 20 MG TABLET. PO SCH (12:40)
[2021-04-27] MEDS: PANTOPRAZOLE 40 MG TABLET. PO SCH ×2 (12:40→20:18)
[2021-04-27] MEDS: CETIRIZINE HCL 10 MG TABLET PO SCH (12:40)
[2021-04-27] MEDS: LISINOPRIL 20 MG TABLET PO SCH (12:40)
[2021-04-27] MEDS: FLUTICASONE 50MCG/NASAL SPRAY 16GM BOTTLE. NS SCH (12:41)
[2021-04-27] MEDS: MIDODRINE 2.5 MG TABLET PO SCH ×2 (13:00→18:00)
[2021-04-27 15:19] VITALS: BP 134/64
[2021-04-27 16:11] LABS: AMPHETAMINE/METHAMPHETAMINE NEG (NEG); BARBITURATES NEG (NEG); BENZODIAZEPINES NEG (NEG); CANNABINOIDS NEG (NEG); COCAINE NEG (NEG); METHADONE NEG (NEG); OPIATES NEG (NEG); PHENCYCLIDINE NEG (NEG)
[2021-04-27 18:38] VITALS: BP 101/63
[2021-04-27] MEDS: INSULIN GLARGINE SYRINGE. SQ SCH (21:20)
[2021-04-28 06:33] VITALS: BP 113/70
[2021-04-28] MEDS: MIDODRINE 2.5 MG TABLET PO SCH ×4 (07:00→20:51)
[2021-04-28 07:09] LABS: HEMOGLOBIN A1C 14.5 % (4.8-5.6)
[2021-04-28] MEDS: INSULIN LISPRO 300 UNITS/3 ML VIAL. SQ SCH ×6 (08:26→17:54)
[2021-04-28] MEDS: MULTIVITAMIN with MINERAL TABLET. PO SCH (08:28)
[2021-04-28] MEDS: ASPIRIN CHEWABLE 81 MG TABLET. PO SCH (08:28)
[2021-04-28] MEDS: CITALOPRAM 20 MG TABLET. PO SCH (08:28)
[2021-04-28] MEDS: GABAPENTIN 300 MG CAPSULE. PO SCH ×2 (08:28→20:46)
[2021-04-28] MEDS: FLUTICASONE 50MCG/NASAL SPRAY 16GM BOTTLE. NS SCH (08:28)
[2021-04-28] MEDS: LISINOPRIL 20 MG TABLET PO SCH (08:29)
[2021-04-28] MEDS: CETIRIZINE HCL 10 MG TABLET PO SCH (08:30)
[2021-04-28] MEDS: buPROPion XL 150 MG TAB.ER.24H PO SCH ×2 (08:30→20:50)
[2021-04-28] MEDS: TAMSULOSIN 0.4 MG CAP.ER.24H. PO SCH (08:30)
[2021-04-28] MEDS: DOCUSATE SODIUM 100 MG CAPSULE PO SCH (08:31)
[2021-04-28] MEDS: CHOLECALCIFEROL (VITAMIN D3) 1,000 UNIT TABLET PO SCH (08:32)
[2021-04-28] MEDS: PANTOPRAZOLE 40 MG TABLET. PO SCH ×2 (08:33→20:50)
[2021-04-28] MEDS ORDERED: HYDROXYCHLOROQUINE 200 MG TABLET PO SCH (09:15)
[2021-04-28] MEDS: FLUTICASONE FUROATE 100mcg/INH ELLIPTA INHALER. INH SCH ×2 (10:27→20:51)
[2021-04-28] MEDS: HYDROXYCHLOROQUINE 200 MG TABLET PO SCH ×2 (10:28→20:50)
[2021-04-28] MEDS: AZITHROMYCIN 250 MG TABLET. PO SCH (10:29)
[2021-04-28 11:50] VITALS: BP 84/46
[2021-04-28 12:45] VITALS: BP 94/55
[2021-04-28] MEDS: IPRATROPIUM/ALBUTEROL 20/100mcg/INH INHALER. INH SCH ×2 (14:00→20:50)
[2021-04-28 15:02] VITALS: BP 91/49
[2021-04-28 17:04] VITALS: BP 100/60
--- NOTE | 2021-04-28 17:38 | EKG ---
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
[2021-04-28 19:01] LABS: BGAS PH 7.38 (7.35-7.46)
[2021-04-28 20:41] VITALS: BP 96/54
[2021-04-28] MEDS: INSULIN GLARGINE SYRINGE. SQ SCH (20:46)
[2021-04-29] VITALS (8 sets, daily range): BP systolic 97–183; BP diastolic 46–79
--- NOTE | 2021-04-29 05:29 | PN ---
DATE: 04/28/2021 SUBJECTIVE: A 71-year-old male in with COVID-19 pneumonia; however, this afternoon temporarily became unresponsive. Blood pressure dropped. He was given a bolus of fluids and blood pressure came back up from 84/46 up to 100/60, respiratory rate 18, pulse 68, running low-grade temperature, 2 liters at 92. The patient was postictal. The patient just walked around and apparently his eyes rolled back in his head. The patient apparently had a seizure activity. Recent CT scan did show possibility of old infarctions and of course, he had been falling fairly frequently. The patient otherwise recovered in time. Blood pressure came back up. OBJECTIVE: GENERAL: The patient otherwise is presently alert, although very lethargic, postictal. HEENT: The patient's eyes were PERRLA. The patient is somewhat constricted on those pupils, but reactive to light. LUNGS: Diminished, but clear. CARDIOVASCULAR: Regular sinus rhythm. ABDOMEN: Soft, nontender. EXTREMITIES: No clubbing, cyanosis. Trace edema, but otherwise basically stable. LABORATORY AND DIAGNOSTIC DATA: Looked basically ____ positive, of course. Hemoglobin 14, hematocrit 42. Chemistries, blood sugars have been still in the low 200s, but markedly improved from where they were, A1c 14.5. The patient continues to make fair progress overall with his general disability. ____ did an MRI scan of his head. Dr. Jim, neurologist, to be consulted and make further assessment on him as indicated. IMPRESSION: [id number] pneumonia, poorly controlled diabetes, possible seizure activity, ketoacidosis, diabetic neuropathy, multiple falls at home and severe protein malnutrition. PLAN: Continue on IV antibiotic therapy. He is using oral steroid inhalers to help him with his pneumonia. The patient also was on midodrine to help with his low blood pressure and he will be continued to be monitored carefully here on the floor. DOMONIQUE/KERLINE/SYLVIE DR: DOMONIQUE/sanam TID: [id number]
--- NOTE | 2021-04-29 05:47 | CONS ---
DATE OF CONSULTATION: 04/28/2021 NEUROLOGICAL CONSULTATION REFERRING PHYSICIAN: Dr. Lawson. REASON FOR CONSULTATION: Acute mental status changes. HISTORY OF PRESENT ILLNESS: This is a 71-year-old right-handed male who was admitted through Emergency Room on 04/28/2021 on account of multiple falls and difficulty to walk with impaired balance. The symptoms have been present for several months. He has had at least 2-3 falls since last week. In emergency room, the patient was found to have poorly controlled diabetes mellitus with a blood sugar close to 500. The patient has been using oxygen at home due to emphysema/COPD. The patient was found to be positive for COVID-19 along with pneumonia. Initial nonenhanced head CT scan revealed no acute intracranial process. According to the nursing staff, the patient demonstrated today marked mental status changes, as he was sitting in the chair and all of sudden he slumped over and he has difficulty to communicate. When I called the patient's name, he opened his eyes and he stated he is 71 years old, but then he became very drowsy and unable to communicate. Neuro consult requested because the patient has marked mental status changes today. PAST MEDICAL HISTORY: Significant for coronary artery disease, hyperlipidemia, COPD, the patient has not been vaccinated to COVID. Other medical problems include gastroesophageal reflux disease, history of peripheral neuropathy in the lower extremities, depressions, seasonal allergies, history of syncope with respiratory failure. PAST SURGICAL HISTORY: Positive for bilateral knee replacement in 1999, bilateral knee surgery in 2002. SOCIAL HISTORY: The patient is unable to communicate, but he is very drowsy. There is no history of smoking or alcohol use. REVIEW OF SYSTEMS: A 12-point review of system was performed as mentioned above in history of present illness, otherwise unremarkable. FAMILY HISTORY: Not obtainable. PHYSICAL EXAMINATION: GENERAL: Well-developed, well-nourished male in acute distress. He is on oxygen via nasal cannula. VITAL SIGNS: Blood pressure 91/49, respiratory rate 18, pulse is 66 and regular, temperature 99.1, oxygen saturation is 93% on 2 liters per nasal cannula. HEENT: Normocephalic, atraumatic, otherwise unremarkable. NECK: Supple. Negative for carotid bruit, lymphadenopathy or thyromegaly. LUNGS: Diminished breath sounds. CARDIOVASCULAR: Regular rate and rhythm. Normal S1, S2. ABDOMEN: Soft. Bowel sounds positive. EXTREMITIES: Negative for cyanosis, clubbing or pedal edema. NEUROLOGIC: Mental status: The patient is drowsy, opens eyes to commands, but he does not follow any commands. Further evaluation of mental status, judgment, memory and abstracting thinking. Cranial nerves: Pupils are equal to light and accommodation. The extraocular movements are intact. There is no nystagmus. There is no facial motor or sensory deficit. Hearing appeared to be intact. The palate is elevated symmetrically. Sternocleidomastoid muscles are powerful bilaterally. The patient shrugs his shoulders, the right shoulder. Motor exam: No focal muscle bulk wasting. The tone is normal. The passive movement of the upper extremities reveals strength of 4/5 throughout. Sensory examination revealed a diminished pinprick and light touch senses in patchy distributions in distal lower extremities. Deep tendon reflexes were symmetric and hypoactive with absent Achilles responses. Gait not tested. LABORATORY DATA: CBC from 04/27/2021 revealed white blood cells of 8.4 thousand, hemoglobin 14.2, hematocrit 42.5, platelet count 283,000. Chemistry revealed a sodium of 136, potassium 4.1, chloride 98, CO2 of 25, BUN 19, creatinine 1.3, glucose is 452, dropped to 148. Hemoglobin A1c is 14.5. Lactic acid is 0.9, calcium 8.4, magnesium 2.1, AST is high at 40 and ALT is normal at 23. CK is 52. Troponin level is 0.074 and BNP is 745. Vitamin B12 is 306 and TSH is normal at 1.24. Urinalysis is negative for urinary tract infection. Urine drug screen is negative as well. IMPRESSION: 1. Acute encephalopathy, etiology probably multifactorial including recent pneumonia, recent positive COVID-19 and marked hyperlipidemia with hypoxia and sleep apnea. 2. Multiple medical problems include diabetes mellitus, coronary artery disease, obstructive sleep apnea, poorly controlled diabetes mellitus. RECOMMENDATION: Continue with current medical care initiated by Dr. Lawson and treat the underlying metabolic derangement as hyperglycemia and pneumonia. HUNG/KERLINE/LORETTA DR: HUNG/sanam TID: [id number]
[2021-04-29 05:57] LABS: BASO % 0 % (0-3); EOS % 0 % (0-3); HEMATOCRIT 37.7 % (39.0-53.0); HEMOGLOBIN 12.6 g/dL (13.0-17.5); LYMPH # 0.7 x10^3/uL (1.0-4.8); LYMPH % 11 % (24-48); MEAN CORPUSCULAR HEMOGLOBIN 30 pg (25-35); MEAN CORPUSCULAR HGB CONC 33 g/dL (31-37); MEAN CORPUSCULAR VOLUME 90 fL (79-100); MONO # 0.4 x10^3/uL (0.0-1.1); MONO % 6 % (0-9); NEUT # 5.7 x10^3uL (1.8-7.7); NEUT % 84 % (31-73); PLATELET COUNT 231 x10^3/uL (140-400); RED BLOOD COUNT 4.21 x10^6/uL (4.30-5.70); RED CELL DISTRIBUTION WIDTH 13.5 % (11.5-14.5); WHITE BLOOD COUNT 6.8 x10^3/uL (4.0-11.0)
[2021-04-29 06:06] LABS: CREATININE 1.3 mg/dL (0.7-1.3); GFR 54.3; POTASSIUM 3.4 mmol/L (3.5-5.1)
[2021-04-29] MEDS: MIDODRINE 2.5 MG TABLET PO SCH ×3 (07:00→17:24)
[2021-04-29] MEDS: INSULIN LISPRO 300 UNITS/3 ML VIAL. SQ SCH ×6 (07:30→17:02)
[2021-04-29] MEDS: GABAPENTIN 300 MG CAPSULE. PO SCH ×3 (09:00→20:18)
[2021-04-29] MEDS: TAMSULOSIN 0.4 MG CAP.ER.24H. PO SCH ×2 (09:00→09:39)
[2021-04-29] MEDS: FLUTICASONE 50MCG/NASAL SPRAY 16GM BOTTLE. NS SCH (09:00)
--- NOTE | 2021-04-29 09:03 | PDOC2 ---
CARDIAC CONSULT DATE OF CONSULT DOS: DATE: 04/29/21 TIME: 08:41 REASON FOR CONSULT Reason for Consult Hypotension REFERRING PHYSICIAN Referring Physician Dr. Lawson SOURCE Source: Chart review, Patient HPI History of Present Illness This is a 71 yo male who presented secondary to weakness and falls at home. Was noted to be COVID positive. Is not vaccinated. Blood pressure has been low end, which prompted this consult. Was is on lisinopril and midodrine. IS presently drowsy and unable to stay awake long enough to provide any meaningful information. Does awake to say he is sleepy, then falls back to sleep. PAST MEDICAL HISTORY Cardiovascular: CAD, hyperipidemia Pulmonary: Other (ANDRE) GI: GERD Endocrine: Diabetes PAST SURGICAL HISTORY Past Surgical History: Other (knee surgery bilaterally ) FAMILY HISTORY Family History: Family History Unknown SOCIAL HISTORY ALCOHOL: none Drugs: None Lives: with Family CURRENT MEDICATIONS Current Medications Current Medications Ceftriaxone Sodium 1 gm/ Sodium Chloride 50 ml @ 100 mls/hr 1X ONCE IV Last administered on 04/27/21at 07:28; Start 04/27/21 at 05:30; Stop 04/27/21 at 05:59; Status DC Azithromycin 500 mg/Sodium Chloride 250 ml @ 250 mls/hr 1X ONCE IV Last administered on 04/27/21at 07:35; Start 04/27/21 at 05:30; Stop 04/27/21 at 06:29; Status DC Dexamethasone Sodium Phosphate (Decadron) 10 mg 1X ONCE IVP Last administered on 04/27/21at 07:25; Start 04/27/21 at 05:30; Stop 04/27/21 at 05:31; Status DC Ondansetron HCl (Zofran) 4 mg PRN Q4HRS PRN IVP NAUSEA/VOMITING; Start 04/27/21 at 05:30; Stop 04/28/21 at 05:29; Status DC Sodium Chloride 250 ml @ As Directed STK-MED ONCE .ROUTE ; Start 04/27/21 at 07:10; Stop 04/27/21 at 07:11; Status DC Sodium Chloride 50 ml @ As Directed STK-MED ONCE .ROUTE ; Start 04/27/21 at 07:10; Stop 04/27/21 at 07:11; Status DC Azithromycin (Zithromax) 500 mg STK-MED ONCE IV ; Start 04/27/21 at 07:11; Stop 04/27/21 at 07:11; Status DC Ceftriaxone Sodium (Rocephin) 1 gm STK-MED ONCE .ROUTE ; Start 04/27/21 at 07:11; Stop 04/27/21 at 07:11; Status DC Insulin Glargine (Lantus Syringe) 15 unit BID SQ ; Start 04/27/21 at 09:30; Stop 04/27/21 at 09:44; Status DC Cyanocobalamin (Vitamin B-12) 1,000 mcg 1X ONCE IM Last administered on 04/27/21at 12:42; Start 04/27/21 at 09:30; Stop 04/27/21 at 09:31; Status DC Aspirin (Aspirin Chewable) 81 mg DAILY PO Last administered on 04/28/21at 08:28; Start 04/27/21 at 09:00 Bupropion HCl (Wellbutrin Xl) 150 mg BID PO Last administered on 04/28/21at 20:50; Start 04/27/21 at 09:30 Cetirizine HCl (ZyrTEC) 10 mg DAILY PO Last administered on 04/28/21at 08:30; Start 04/27/21 at 09:00 Docusate Sodium (Colace) 100 mg DAILY PO Last administered on 04/27/21at 12:40; Start 04/27/21 at 09:00 Fluticasone Propionate (Flonase) 2 spray DAILY NS Last administered on 04/28/21at 08:28; Start 04/27/21 at 09:00 Lisinopril (Prinivil) 20 mg DAILY PO Last administered on 04/28/21at 08:29; Start 04/27/21 at 09:00; Stop 04/28/21 at 18:49; Status DC Midodrine (Proamatine) 2.5 mg [id number] PO Last administered on 04/28/21at 17:55; Start 04/27/21 at 13:00; Stop 04/28/21 at 18:49; Status DC Citalopram Hydrobromide (CeleXA) 20 mg DAILY PO Last administered on 04/28/21at 08:28; Start 04/27/21 at 09:00 Pantoprazole Sodium (Protonix) 40 mg BID PO Last administered on 04/28/21at 20:50; Start 04/27/21 at 09:00 Insulin Human Lispro (HumaLOG) 15 units TIDAC SQ Last administered on 04/28/21at 17:54; Start 04/27/21 at 11:30 Insulin Glargine (Lantus Syringe) 50 unit QHS SQ ; Start 04/27/21 at 21:00; Status Cancel Gabapentin (Neurontin) 600 mg BID PO Last administered on 04/28/21at 08:28; Start 04/27/21 at 09:00 Tamsulosin HCl (Flomax) 0.4 mg DAILY PO Last administered on 04/28/21at 08:30; Start 04/27/21 at 09:00 Vitamin D (Vitamin D3) 1,000 unit DAILY PO Last administered on 04/28/21at 08:32; Start 04/27/21 at 09:00 Multivitamins/ Calcium (Thera-M Plus) 1 tab DAILY PO Last administered on 04/28/21at 08:28; Start 04/28/21 at 09:00 Insulin Human Lispro (HumaLOG) 15 units 1X ONCE SQ Last administered on 04/27/21at 12:43; Start 04/27/21 at 09:45; Stop 04/27/21 at 09:46; Status DC Insulin Human Lispro (HumaLOG) 0-9 UNITS TIDAC SQ Last administered on 04/28/21at 08:27; Start 04/27/21 at 11:30 Insulin Glargine (Lantus Syringe) 30 unit QHS SQ Last administered on 1at 21:20; Start 04/27/21 at 21:00 Albuterol/ Ipratropium (Combivent Respimat 20-100 Mcg) 1 puff TID INH Last administered on 04/28/21at 20:50; Start 04/28/21 at 14:00 Ceftriaxone Sodium 1 gm/ Sodium Chloride 50 ml @ 100 mls/hr Q24H IV Last administered on 04/28/21 10:28; Start 04/28/21 at 09:00 Azithromycin (Zithromax) 250 mg DAILY PO Last administered on 04/28/21at 10:29; Start 04/28/21 at 09:00 Fluticasone Furoate (ARNUITY 100mcg ELLIPTA) 1 puff BID INH Last administered on 04/28/21at 20:51; Start 04/28/21 at 09:00 Hydroxychloroquine Sulfate (Plaquenil) 400 mg BID PO ; Start 04/28/21 at 09:15; Stop 04/28/21 at 09:27; Status DC Hydroxychloroquine Sulfate (Plaquenil) 200 mg BID PO Last administered on 04/28/21at 20:50; Start 04/28/21 at 09:00 Midodrine (Proamatine) 5 mg [id number] PO Last administered on 04/28/21at 20:51; Start 04/28/21 at 19:00 Active Scripts Active Midodrine Hcl 2.5 Mg Tablet 2.5 Mg PO [id number] 30 Days Colace (Docusate Sodium) 100 Mg Capsule 100 Mg PO DAILY 90 Days Fluticasone Propionate Nasal Kanaranzi (Fluticasone Propionate) 16 Gm Kanaranzi.susp 2 Kanaranzi NS DAILY Novolog Flexpen (Insulin Aspart) 100 Unit/1 Ml Insuln.pen 15 Units SQ TIDAC 30 Days Reported [gabapentin] 600 Mg PO BID Aspirin 81 Mg Tab.chew 81 Mg PO DAILY LAST DOSE GIVEN: DATE: TODAY TIME: AM NEXT DOSE DUE: DATE: TOMORROW TIME: AM Pravastatin Sodium 20 Mg Tablet 1 Tab PO QHS LAST DOSE GIVEN: DATE: YESTERDAY TIME: AT BEDTIME NEXT DOSE DUE: DATE: TODAY TIME: AT BEDTIME Escitalopram Oxalate 10 Mg Tablet 1 Tab PO DAILY LAST DOSE GIVEN: DATE: TODAY TIME: AM NEXT DOSE DUE: DATE: TOMORROW TIME: AM Cetirizine Hcl 10 Mg Tablet 1 Tab PO DAILY LAST DOSE GIVEN: DATE: TODAY TIME: AM NEXT DOSE DUE: DATE: TOMORROW TIME: AM Lantus Solostar (Insulin Glargine,Hum.rec.anlog) 100 Unit/1 Ml Insuln.pen 30 Unit SQ QHS LAST DOSE GIVEN: DATE: YESTERDAY TIME: AT BEDTIME NEXT DOSE DUE: DATE: TODAY TIME: AT BEDTIME Lisinopril 20 Mg Tablet 1 Tab PO DAILY NOT GIVEN IN THE HOSPITAL NEXT DOSE DUE: DATE: TOMORROW TIME: AM Bupropion Xl (Bupropion Hcl) 150 Mg Tab.er.24h 1 Tab PO BID LAST DOSE GIVEN: DATE: TODAY TIME: AM NEXT DOSE DUE: DATE: TODAY TIME: PM Nexium Capsule (Esomeprazole Magnesium) 40 Mg Capsule.dr 1 Cap PO BID LAST DOSE GIVEN: DATE: TODAY TIME: AM NEXT DOSE DUE: DATE: TODAY TIME: PM ALLERGIES Allergies: Coded Allergies: No Known Drug Allergies (Unverified , 07/02/17) ROS Review of Systems 14 point ROS conducted with pertinent positives noted above in hPI PHYSICAL EXAM General: No acute distress HEENT: Atraumatic Lungs: Other (on NC) Heart: Regular rate Abdomen: Soft, No tenderness Extremities: No edema, Normal pulses Skin: No breakdown Neuro: Sensation intact Psych/Mental Status: Other (drowsy ) MUSCULOSKELETAL: Osteoarthritic changes both hands VITALS Vital Signs Vital Signs Date Time Temp Pulse Resp B/P (MAP) Pulse Ox O2 Delivery O2 Flow Rate FiO2 04/29/21 06:13 97.4 86 18 97/46 (63) 91 Nasal Cannula 3.0 LABS LABS Laboratory Tests Test 04/27/21 08:45 04/27/21 09:50 04/27/21 11:52 04/27/21 15:55 Troponin I Quantitative 0.074 ng/mL (0-0.055) Thyroid Stimulating Hormone (TSH) 1.241 uIU/mL (0.358-3.740) Lactic Acid Level 0.9 mmol/L (0.4-2.0) Glucose (Fingerstick) 357 mg/dL (70-99) Urine Opiates Screen Neg (NEG) Urine Methadone Screen Neg (NEG) Urine Barbiturates Neg (NEG) Urine Phencyclidine Screen Neg (NEG) Urine Amphetamine/Methamphetamine Neg (NEG) Urine Benzodiazepines Screen Neg (NEG) Urine Cocaine Screen Neg (NEG) Urine Cannabinoids Screen Neg (NEG) Urine Ethyl Alcohol Neg (NEG) Test 04/27/21 16:28 04/27/21 20:21 04/28/21 07:55 04/28/21 11:59 Glucose (Fingerstick) 365 mg/dL (70-99) 267 mg/dL (70-99) 254 mg/dL (70-99) 274 mg/dL (70-99) Test 04/28/21 16:49 04/28/21 18:40 04/28/21 20:33 04/28/21 21:30 Glucose (Fingerstick) 242 mg/dL (70-99) 148 mg/dL (70-99) Blood Gas pH 7.38 (7.35-7.46) Blood Gas PCO2 39 mmHg (35-46) Blood Gas PO2 59 mmHg (71-100) Blood Gas HCO3 23 mmol/L (21-28) Arterial Bld O2 Saturation (Calc) 90 % (92-99) FiO2 32 % Magnesium Level 2.1 mg/dL (1.8-2.4) Test 04/29/21 05:35 04/29/21 07:56 White Blood Count 6.8 x10^3/uL (4.0-11.0) Red Blood Count 4.21 x10^6/uL (4.30-5.70) Hemoglobin 12.6 g/dL (13.0-17.5) Hematocrit 37.7 % (39.0-53.0) Mean Corpuscular Volume 90 fL (79-100) Mean Corpuscular Hemoglobin 30 pg (25-35) Mean Corpuscular Hemoglobin Concent 33 g/dL (31-37) Red Cell Distribution Width 13.5 % (11.5-14.5) Platelet Count 231 x10^3/uL (140-400) Neutrophils (%) (Auto) 84 % (31-73) Lymphocytes (%) (Auto) 11 % (24-48) Monocytes (%) (Auto) 6 % (0-9) Eosinophils (%) (Auto) 0 % (0-3) Basophils (%) (Auto) 0 % (0-3) Neutrophils # (Auto) 5.7 x10^3uL (1.8-7.7) Lymphocytes # (Auto) 0.7 x10^3/uL (1.0-4.8) Monocytes # (Auto) 0.4 x10^3/uL (0.0-1.1) Eosinophils # (Auto) 0.0 x10^3/uL (0.0-0.7) Basophils # (Auto) 0.0 x10^3/uL (0.0-0.2) Sodium Level 135 mmol/L (136-145) Potassium Level 3.4 mmol/L (3.5-5.1) Chloride Level 100 mmol/L (98-107) Carbon Dioxide Level 26 mmol/L (21-32) Anion Gap 9 (6-14) Blood Urea Nitrogen 29 mg/dL (8-26) Creatinine 1.3 mg/dL (0.7-1.3) Estimated GFR (Cockcroft-Gault) 54.3 Glucose Level 143 mg/dL (70-99) Calcium Level 8.0 mg/dL (8.5-10.1) Glucose (Fingerstick) 144 mg/dL (70-99) ECHOCARDIOGRAM Echocardiogram <Conclusion> The left ventricular systolic function is normal and the ejection fraction is within normal range. The Ejection Fraction is 55-60%. There is normal LV segmental wall motion. The aortic valve is heavily calcified. DATE: 08/15/20 1138 ASSESSMENT/PLAN Assessment/Plan 1. Weakness, fatigue, falls 2. Acute respiratory failure, COVID + 3. Mild troponin elevation; highest 0.074. Type II, demand ischemia in setting of above. Recent echo with preserved LV systolic function 4. Hypotension; on midodrine and lisinopril 5. CAD; details unknown 6. Hyperlipidemia 7. Diabetes, II; uncontrolled . A1C 14.5 8. Hypokalemia 9. Protein calorie malnutrition Recommendations Discontinue lisinopril Increase midodrine to 5mg TID Will given IVFs Ongoing lung optimization, treatment of COVID Supportive care CARLOS HUSTNO APRN Apr 29, 2021 09:03
[2021-04-29] MEDS: DOCUSATE SODIUM 100 MG CAPSULE PO SCH (09:38)
[2021-04-29] MEDS: ASPIRIN CHEWABLE 81 MG TABLET. PO SCH (09:38)
[2021-04-29] MEDS: MULTIVITAMIN with MINERAL TABLET. PO SCH (09:38)
[2021-04-29] MEDS: CETIRIZINE HCL 10 MG TABLET PO SCH (09:39)
[2021-04-29] MEDS: PANTOPRAZOLE 40 MG TABLET. PO SCH ×2 (09:39→20:28)
[2021-04-29] MEDS: IPRATROPIUM/ALBUTEROL 20/100mcg/INH INHALER. INH SCH ×3 (09:39→20:27)
[2021-04-29] MEDS: AZITHROMYCIN 250 MG TABLET. PO SCH (09:39)
[2021-04-29] MEDS: CHOLECALCIFEROL (VITAMIN D3) 1,000 UNIT TABLET PO SCH (09:39)
[2021-04-29] MEDS: buPROPion XL 150 MG TAB.ER.24H PO SCH ×2 (09:39→20:27)
[2021-04-29] MEDS: CITALOPRAM 20 MG TABLET. PO SCH (09:40)
[2021-04-29] MEDS: HYDROXYCHLOROQUINE 200 MG TABLET PO SCH ×2 (09:47→20:28)
[2021-04-29] MEDS: FLUTICASONE FUROATE 100mcg/INH ELLIPTA INHALER. INH SCH ×2 (10:00→20:28)
[2021-04-29] MEDS ORDERED: POTASSIUM BICARB 10 MEQ EFFERVESCENT TABLET. PO ONE (10:15)
[2021-04-29] MEDS ORDERED: IV NORMAL SALINE 500ML 500 ML IV ONE (10:15)
--- NOTE | 2021-04-29 12:51 | PN ---
SUBJECTIVE: The patient is drowsy and unable to communicate. When I asked him about how he is feeling, he said "I am tired." OBJECTIVE: GENERAL: Well-developed, well-nourished male, not in acute distress. VITAL SIGNS: Blood pressure is 97/46, respiratory rate 18, pulse is 86, temperature 97.1, oxygen saturation is 91% on 3 L per nasal cannula. HEENT: Normocephalic, atraumatic, otherwise unremarkable. NECK: Supple. Negative for carotid bruit, lymphadenopathy or thyromegaly. LUNGS: With diminished breath sounds. CARDIOVASCULAR: Regular rate and rhythm. Normal S1, S2. ABDOMEN: Soft. Bowel sounds positive. EXTREMITIES: Negative for cyanosis, clubbing, or pedal edema. NEUROLOGIC: Mental Status: The patient is drowsy, but arousable. He does not follow any commands because of drowsiness, but he responds to noxious stimuli. The patient opened his eyes briefly. The pupils are equal. There is no facial asymmetry. Hearing appeared to be intact. The palate is elevated symmetrically. Sternocleidomastoid muscles are powerful bilaterally. Cranial nerves are grossly intact. Motor Examination: No focal muscle bulk wasting. The tone is normal. Due to drowsiness, the patient did not cooperate with manual motor examination. Sensory examination revealed diminished pinprick and light touch senses in distal lower extremities. Deep tendon reflexes were symmetric and hypoactive with absent Achilles responses. Gait is not tested. Echocardiogram revealed normal left ventricular ejection fraction between 55 and 60. X-ray of the shoulders revealed moderate degenerative changes, the same as for the pelvis and hips. LABORATORY DATA: CBC revealed white blood cells 6.8 thousand, hemoglobin 12.6, hematocrit 37.7, platelet count 231,000. Chemistry revealed sodium of 135, potassium of 3.4, chloride 100, CO2 of 26, BUN 29, creatinine 1.3, glucose 143. IMPRESSION: 1. Acute encephalopathy, probably multifactorial including COVID-19 pneumonia, dehydration, renal insufficiency, and hypokalemia. 2. Multiple medical problems include diabetes mellitus, coronary artery disease, hyperlipidemia. 3. Frequent falls. RECOMMENDATIONS: 1. Continue with current medical care. 2. Physical therapy, when the patient is medically stable. HUNG/VENKATESH DR: HUNG/sanam TID: [id number]
[2021-04-29] MEDS: INSULIN GLARGINE SYRINGE. SQ SCH (20:18)
--- NOTE | 2021-04-30 01:54 | PN ---
DATE: 04/29/2021 SUBJECTIVE: The patient is here with COVID-19 pneumonia. The patient had what appeared to be seizure activity. Dr. Jim was kind enough to review the patient, made timely suggestions. Cardiology has also seen the patient as well for some elevated troponins. Otherwise, the patient seems to be making fairly good progress overall, seems to be gaining some of his strength. He does not have any further seizure activity, and the patient is still receiving some physical and occupational therapy as well. OBJECTIVE: VITAL SIGNS: The patient's blood pressure is 112/67, although it does drop down to 97/46, respiratory rate 18, pulse 70, does have a low-grade temperature at 99.5. We will get a UA with micro C and S. LUNGS: Diminished, but basically clear. The patient otherwise continues on physical and occupational therapy, timely suggestions, followup from Cardiology as well as with Neurology. IMPRESSION: Acute respiratory failure. COVID-19 positive pneumonia. Troponin elevation demands ____ type 2. Hypotension; hyperlipidemia; type 2 diabetes, poorly controlled; generalized weakness; hypokalemia; severe protein calorie malnutrition; acute encephalopathy, multifactorial; sleep apnea; coronary artery disease. PLAN: Continue to monitor the patient accordingly. Possibly get CPAP, other aids to help him with his multiple medical issues. DOMONIQUE/TR/OLAF DR: DOMONIQUE/sanam TID: [id number]
[2021-04-30 05:00] VITALS: BP 147/76
[2021-04-30] MEDS: MIDODRINE 2.5 MG TABLET PO SCH ×3 (07:00→17:36)
[2021-04-30 07:22] LABS: BASO % 0 % (0-3); CALCIUM 8.4 mg/dL (8.5-10.1); CREATININE 1.1 mg/dL (0.7-1.3); EOS % 0 % (0-3); GFR 65.8; HEMATOCRIT 39.4 % (39.0-53.0); HEMOGLOBIN 13.3 g/dL (13.0-17.5); LYMPH # 0.7 x10^3/uL (1.0-4.8); LYMPH % 11 % (24-48); MEAN CORPUSCULAR HEMOGLOBIN 30 pg (25-35); MEAN CORPUSCULAR HGB CONC 34 g/dL (31-37); MEAN CORPUSCULAR VOLUME 90 fL (79-100); MONO # 0.4 x10^3/uL (0.0-1.1); MONO % 7 % (0-9); NEUT # 5.1 x10^3uL (1.8-7.7); NEUT % 82 % (31-73); PLATELET COUNT 232 x10^3/uL (140-400); POTASSIUM 3.9 mmol/L (3.5-5.1); RED BLOOD COUNT 4.39 x10^6/uL (4.30-5.70); RED CELL DISTRIBUTION WIDTH 13.9 % (11.5-14.5); WHITE BLOOD COUNT 6.2 x10^3/uL (4.0-11.0)
[2021-04-30] MEDS: INSULIN LISPRO 300 UNITS/3 ML VIAL. SQ SCH ×6 (07:30→16:30)
[2021-04-30] MEDS: ASPIRIN CHEWABLE 81 MG TABLET. PO SCH (08:27)
[2021-04-30] MEDS: AZITHROMYCIN 250 MG TABLET. PO SCH (08:28)
[2021-04-30] MEDS: HYDROXYCHLOROQUINE 200 MG TABLET PO SCH (08:28)
[2021-04-30] MEDS: CHOLECALCIFEROL (VITAMIN D3) 1,000 UNIT TABLET PO SCH (08:28)
[2021-04-30] MEDS: GABAPENTIN 300 MG CAPSULE. PO SCH ×2 (08:28→20:15)
[2021-04-30] MEDS: CETIRIZINE HCL 10 MG TABLET PO SCH (08:28)
[2021-04-30] MEDS: buPROPion XL 150 MG TAB.ER.24H PO SCH ×2 (08:28→20:24)
[2021-04-30] MEDS: CITALOPRAM 20 MG TABLET. PO SCH (08:29)
[2021-04-30] MEDS: PANTOPRAZOLE 40 MG TABLET. PO SCH ×2 (08:33→20:24)
[2021-04-30] MEDS: TAMSULOSIN 0.4 MG CAP.ER.24H. PO SCH (08:33)
[2021-04-30] MEDS: LACTOBACILLUS RHAMNOSUS GG 1 CAPSULE. PO SCH ×2 (08:33→20:24)
[2021-04-30] MEDS: MULTIVITAMIN with MINERAL TABLET. PO SCH (08:33)
[2021-04-30] MEDS: IPRATROPIUM/ALBUTEROL 20/100mcg/INH INHALER. INH SCH ×3 (08:34→20:25)
[2021-04-30] MEDS: FLUTICASONE 50MCG/NASAL SPRAY 16GM BOTTLE. NS SCH (08:34)
[2021-04-30] MEDS: FLUTICASONE FUROATE 100mcg/INH ELLIPTA INHALER. INH SCH ×2 (08:34→20:25)
[2021-04-30] MEDS: DOCUSATE SODIUM 100 MG CAPSULE PO SCH (08:34)
--- NOTE | 2021-04-30 08:36 | PDOC ---
CARLOS HUSTON JORDEN 04/30/21 0836: CARDIO Progress Notes Date & Time Date of Service DATE: 04/30/21 TIME: 08:34 Time of Evaluation 08:34 Subjective Notes More awake today. No chest pain, shortness of breath Vitals Vitals Vital Signs Date Time Temp Pulse Resp B/P (MAP) Pulse Ox O2 Delivery O2 Flow Rate FiO2 04/30/21 05:00 98.6 92 18 147/76 (99) 92 Nasal Cannula 5.0 Weight Weight [ ] Input and Output I.O. Intake and Output 04/30/21 07:00 Intake Total 900 ml Output Total 1350 ml Balance -450 ml Intake Oral 900 ml Output Urine Total 1350 ml Laboratory Labs Laboratory Tests Test 04/28/21 11:59 04/28/21 16:49 04/28/21 18:40 04/28/21 20:33 Glucose (Fingerstick) 274 mg/dL (70-99) 242 mg/dL (70-99) 148 mg/dL (70-99) Blood Gas pH 7.38 (7.35-7.46) Blood Gas PCO2 39 mmHg (35-46) Blood Gas PO2 59 mmHg (71-100) Blood Gas HCO3 23 mmol/L (21-28) Arterial Bld O2 Saturation (Calc) 90 % (92-99) FiO2 32 % Test 04/28/21 21:30 04/29/21 05:35 04/29/21 07:56 04/29/21 12:03 Magnesium Level 2.1 mg/dL (1.8-2.4) 2.0 mg/dL (1.8-2.4) White Blood Count 6.8 x10^3/uL (4.0-11.0) Red Blood Count 4.21 x10^6/uL (4.30-5.70) Hemoglobin 12.6 g/dL (13.0-17.5) Hematocrit 37.7 % (39.0-53.0) Mean Corpuscular Volume 90 fL (79-100) Mean Corpuscular Hemoglobin 30 pg (25-35) Mean Corpuscular Hemoglobin Concent 33 g/dL (31-37) Red Cell Distribution Width 13.5 % (11.5-14.5) Platelet Count 231 x10^3/uL (140-400) Neutrophils (%) (Auto) 84 % (31-73) Lymphocytes (%) (Auto) 11 % (24-48) Monocytes (%) (Auto) 6 % (0-9) Eosinophils (%) (Auto) 0 % (0-3) Basophils (%) (Auto) 0 % (0-3) Neutrophils # (Auto) 5.7 x10^3uL (1.8-7.7) Lymphocytes # (Auto) 0.7 x10^3/uL (1.0-4.8) Monocytes # (Auto) 0.4 x10^3/uL (0.0-1.1) Eosinophils # (Auto) 0.0 x10^3/uL (0.0-0.7) Basophils # (Auto) 0.0 x10^3/uL (0.0-0.2) Sodium Level 135 mmol/L (136-145) Potassium Level 3.4 mmol/L (3.5-5.1) Chloride Level 100 mmol/L (98-107) Carbon Dioxide Level 26 mmol/L (21-32) Anion Gap 9 (6-14) Blood Urea Nitrogen 29 mg/dL (8-26) Creatinine 1.3 mg/dL (0.7-1.3) Estimated GFR (Cockcroft-Gault) 54.3 Glucose Level 143 mg/dL (70-99) Calcium Level 8.0 mg/dL (8.5-10.1) Glucose (Fingerstick) 144 mg/dL (70-99) 178 mg/dL (70-99) Test 04/29/21 16:53 04/29/21 20:15 04/30/21 00:40 04/30/21 06:22 Glucose (Fingerstick) 198 mg/dL (70-99) 66 mg/dL (70-99) 128 mg/dL (70-99) White Blood Count 6.2 x10^3/uL (4.0-11.0) Red Blood Count 4.39 x10^6/uL (4.30-5.70) Hemoglobin 13.3 g/dL (13.0-17.5) Hematocrit 39.4 % (39.0-53.0) Mean Corpuscular Volume 90 fL (79-100) Mean Corpuscular Hemoglobin 30 pg (25-35) Mean Corpuscular Hemoglobin Concent 34 g/dL (31-37) Red Cell Distribution Width 13.9 % (11.5-14.5) Platelet Count 232 x10^3/uL (140-400) Neutrophils (%) (Auto) 82 % (31-73) Lymphocytes (%) (Auto) 11 % (24-48) Monocytes (%) (Auto) 7 % (0-9) Eosinophils (%) (Auto) 0 % (0-3) Basophils (%) (Auto) 0 % (0-3) Neutrophils # (Auto) 5.1 x10^3uL (1.8-7.7) Lymphocytes # (Auto) 0.7 x10^3/uL (1.0-4.8) Monocytes # (Auto) 0.4 x10^3/uL (0.0-1.1) Eosinophils # (Auto) 0.0 x10^3/uL (0.0-0.7) Basophils # (Auto) 0.0 x10^3/uL (0.0-0.2) Sodium Level 136 mmol/L (136-145) Potassium Level 3.9 mmol/L (3.5-5.1) Chloride Level 102 mmol/L (98-107) Carbon Dioxide Level 25 mmol/L (21-32) Anion Gap 9 (6-14) Blood Urea Nitrogen 24 mg/dL (8-26) Creatinine 1.1 mg/dL (0.7-1.3) Estimated GFR (Cockcroft-Gault) 65.8 Glucose Level 152 mg/dL (70-99) Calcium Level 8.4 mg/dL (8.5-10.1) Test 04/30/21 07:59 Glucose (Fingerstick) 175 mg/dL (70-99) Microbiology Micro Microbiology 04/27/21 Blood Culture - Preliminary, Resulted NO GROWTH AFTER 2 DAYS... Physical Exams HEENT: Neck Supple W Full Motion Chest: Symmetric Lungs: Other (on Nc) Heart: RRR Abdomen: Soft N/T Extremities: No Edema Neurology: alert, follow commands Assessment Assessment 1. Weakness, fatigue, falls 2. Acute respiratory failure, COVID + 3. Mild troponin elevation; highest 0.074. Type II, demand ischemia in setting of above. Recent echo with preserved LV systolic function 4. Hypotension; improved s/p discontinuation of lisinopril, increased midodrine, and IVFs. now adequate 5. CAD; details unknown 6. Hyperlipidemia 7. Diabetes, II; uncontrolled . A1C 14.5 8. Hypokalemia 9. Protein calorie malnutrition Recommendations Continue midodrine Ongoing lung optimization, treatment of COVID Supportive care MACARENA SIMS MD 04/30/21 1846: CARDIO Progress Notes Plan Plan Patient seen and examined. Discussed with nursing staff. Supportive care. CARLOS HUSTON APRN Apr 30, 2021 08:36 MACARENA SIMS MD Apr 30, 2021 18:46
[2021-04-30] MEDS ORDERED: FUROSEMIDE 40 MG/4 ML VIAL IVP ONE (09:15)
[2021-04-30] MEDS ORDERED: PIP/TAZO PER PHARMACY MC PRN (09:30)
[2021-04-30] MEDS ORDERED: levoFLOXacin PER PHARMACY 1 EACH. MC PRN (09:30)
--- NOTE | 2021-04-30 09:42 | RAD ---
XR CHEST 1V History: Reason: shortness of breath / Spl. Instructions: / History: Comparison: April 27, 2021 Findings: Increased effusions and interstitial thickening with ill-defined opacities. No pleural effusion. Emph ysematous changes. No pneumothorax. Unchanged heart size. Impression: 1. Increased diffuse interstitial thickening with ill-defined opacities, may represent pulmonary liliane ma or infection. Electronically signed by: Scooby Campos DO (04/30/2021 9:40 AM) [id number]
[2021-04-30] MEDS: PIPERACILLIN/TAZOBACTAM 3.375 GM in IV NORMAL SALINE 50ML 50 ML IV SCH ×2 (09:52→17:37)
[2021-04-30 10:23] LABS: BGAS PH 7.41 (7.35-7.46)
--- NOTE | 2021-04-30 10:34 | PN ---
DATE: 04/30/2021 SUBJECTIVE: The patient denies any new medical or neurological complaints, but he continues to have severe arthritic pain of the left shoulder. He denies chest pain, visual disturbances or headaches. OBJECTIVE: GENERAL: Well-developed, well-nourished male, in no acute distress. VITAL SIGNS: Blood pressure 147/76, respiratory rate 18, pulse is 92 and regular, oxygen saturation is 92%, he is on 5 liters per minute per nasal cannula, temperature is 98.6. HEENT: Normocephalic, atraumatic, otherwise unremarkable. NECK: Supple, negative for carotid bruit, lymphadenopathy or thyromegaly. LUNGS: With diminished breath sounds throughout. CARDIOVASCULAR: Regular rhythm. Normal S1, S2. ABDOMEN: Soft. Bowel sounds positive. EXTREMITIES: Negative for cyanosis, clubbing or edema. NEUROLOGIC: Mental status: The patient is alert and oriented x 2. The speech is fluent. There is no language dysfunction. Memory, judgment and abstracting thinking are fair. The patient denies hallucination or delusion. Cranial nerves are grossly intact. No focal motor or sensory deficit. Decreased range of motions of the left shoulder secondary to severe arthritic pain. Sensory examination revealed diminished pinprick and light touch senses in patchy distributions in distal lower extremities. Deep tendon reflexes were assimulated to and hypoactive with absent Achilles responses. Gait not tested. LABORATORY DATA: CBC revealed white blood cells of 6.2 thousand, hemoglobin 13.3, hematocrit 39.4, platelet count 232,000. Chemistry revealed sodium of 136, potassium of 3.9, chloride 102, CO2 of 25, BUN is 24, creatinine 1.1, glucose is 152, calcium 8.4. IMPRESSION: 1. Acute encephalopathy - multifactorial. 2. COVID-19 pneumonia. 3. Multiple medical problems include diabetes mellitus, hyperlipidemia, coronary artery disease, frequent falls. RECOMMENDATIONS: 1. Continue with current management initiated by Dr. Lawson. 2. Continue with PT/OT. The patient is neurologically stable. HUNG/LUIS A/MEY DR: HUNG/sanam TID: [id number]
[2021-04-30 11:20] VITALS: BP 120/66
[2021-04-30 15:44] VITALS: BP 122/79
[2021-04-30 19:54] VITALS: BP 96/57
[2021-04-30] MEDS: INSULIN GLARGINE SYRINGE. SQ SCH (20:44)
[2021-04-30 23:18] VITALS: BP 119/72
--- NOTE | 2021-05-01 00:06 | PN ---
SUBJECTIVE: The patient is a 71-year-old gentleman in with COVID-19 pneumonia. The patient had possibly a seizure activity yesterday, having more difficulty breathing. X-rays show increase in infiltrate, possibly edema, and we gave him extra dose of Lasix IV, seems to help him breathe a little bit better and easier. OBJECTIVE: VITAL SIGNS: Blood pressure 122/79, respiratory rate 18, pulse 74, afebrile. He is on 5 liters at 94%. GENERAL: The patient otherwise resting fairly comfortably. LUNGS: Diminished throughout, poor movement of air. CARDIOVASCULAR: Regular sinus rhythm, S1, S2. ABDOMEN: Soft, nontender. EXTREMITIES: No clubbing, cyanosis. Trace edema. NEUROLOGIC: Stable. IMPRESSION: Therefore of COVID-19 pneumonia, acute on top of chronic diastolic heart failure, acute respiratory failure, metabolic encephalopathy, possible seizure activity, type 2 diabetes. PLAN: Continue to monitor patient accordingly, make adjustments on his medications as noted, give him an additional 40 of Lasix IV. Continue on IV antibiotic therapy. Monitor fluid intake. Should be on a heart healthy, low-sodium diet as well. DOMONIQUE/MONIKA DR: DOMONIQUE/sanam TID: [id number]
[2021-05-01] MEDS: PIPERACILLIN/TAZOBACTAM 3.375 GM in IV NORMAL SALINE 50ML 50 ML IV SCH ×4 (00:23→17:19)
[2021-05-01 05:52] VITALS: BP 124/65
[2021-05-01] MEDS: MIDODRINE 2.5 MG TABLET PO SCH ×3 (08:04→17:19)
[2021-05-01] MEDS: PANTOPRAZOLE 40 MG TABLET. PO SCH ×2 (08:04→21:53)
[2021-05-01] MEDS: ASPIRIN CHEWABLE 81 MG TABLET. PO SCH (08:05)
[2021-05-01] MEDS: MULTIVITAMIN with MINERAL TABLET. PO SCH (08:05)
[2021-05-01] MEDS: DOCUSATE SODIUM 100 MG CAPSULE PO SCH (08:05)
[2021-05-01] MEDS: LACTOBACILLUS RHAMNOSUS GG 1 CAPSULE. PO SCH ×2 (08:05→21:36)
[2021-05-01] MEDS: CHOLECALCIFEROL (VITAMIN D3) 1,000 UNIT TABLET PO SCH (08:05)
[2021-05-01] MEDS: CETIRIZINE HCL 10 MG TABLET PO SCH (08:05)
[2021-05-01] MEDS: buPROPion XL 150 MG TAB.ER.24H PO SCH ×2 (08:05→21:53)
[2021-05-01] MEDS: GABAPENTIN 300 MG CAPSULE. PO SCH ×2 (08:06→21:53)
[2021-05-01] MEDS: TAMSULOSIN 0.4 MG CAP.ER.24H. PO SCH (08:06)
[2021-05-01] MEDS: IPRATROPIUM/ALBUTEROL 20/100mcg/INH INHALER. INH SCH ×3 (08:07→21:00)
[2021-05-01] MEDS: FLUTICASONE 50MCG/NASAL SPRAY 16GM BOTTLE. NS SCH (08:07)
[2021-05-01] MEDS: CITALOPRAM 20 MG TABLET. PO SCH (08:07)
[2021-05-01] MEDS: FLUTICASONE FUROATE 100mcg/INH ELLIPTA INHALER. INH SCH ×2 (08:08→21:00)
[2021-05-01] MEDS: INSULIN LISPRO 300 UNITS/3 ML VIAL. SQ SCH ×6 (08:09→17:18)
[2021-05-01 11:54] VITALS: BP 96/62
[2021-05-01] MEDS ORDERED: FUROSEMIDE 40 MG/4 ML VIAL IVP ONE (13:00)
[2021-05-01] MEDS ORDERED: ENOXAPARIN 40 MG/0.4 ML SYRINGE. SQ SCH ×2 (13:15→21:00)
[2021-05-01] MEDS: ENOXAPARIN 40 MG/0.4 ML SYRINGE. SQ SCH ×2 (13:58→21:56)
[2021-05-01] MEDS: DEXAMETHASONE 4 MG TABLET PO SCH ×2 (14:01→21:53)
[2021-05-01 16:03] VITALS: BP 168/74
[2021-05-01 19:00] VITALS: BP 128/76
[2021-05-01] MEDS: NYSTATIN 100,000 UNIT/GM TOPICAL CREAM 15GM TUBE. TP SCH (21:54)
[2021-05-01] MEDS: INSULIN GLARGINE SYRINGE. SQ SCH (22:17)
[2021-05-01 23:00] VITALS: BP 130/70
[2021-05-02] MEDS: PIPERACILLIN/TAZOBACTAM 3.375 GM in IV NORMAL SALINE 50ML 50 ML IV SCH ×4 (00:22→18:15)
[2021-05-02 05:50] VITALS: BP 126/75
--- NOTE | 2021-05-02 07:05 | PN ---
DATE: 05/01/2021 SUBJECTIVE: A 71-year-old male in with COVID-19 pneumonia. The patient is resting fairly comfortably, making fairly good progress overall and had not had any further seizure activity. The patient seemed a little bit more awake, having difficulty keeping his oxygen on his nose when he does, still slightly low. We will continue with the Decadron. He is on breathing treatments and given him additional Lasix. We will continue to monitor him, on that, he is afebrile. OBJECTIVE: VITAL SIGNS: Blood pressure anywhere from 98/60-160/70, respiratory rate 18, pulse 68, afebrile. GENERAL: The patient is alert and oriented per baseline. LUNGS: Diminished primarily in the bases, but otherwise fairly clear. CARDIOVASCULAR: Regular sinus rhythm, S1, S2. ABDOMEN: Soft, nontender, no rebound or guarding. Positive bowel sounds. EXTREMITIES: No clubbing, cyanosis, nor edema. NEUROLOGIC: Baseline stable. IMPRESSION: Acute respiratory failure secondary to COVID-19 pneumonia; coronary artery disease; hyperlipidemia; type 2 diabetes, getting under better control; acute respiratory failure; elevated troponin; type 2 demand ischemia; protein calorie malnutrition. Blood sugars under much better control. Overall, we will continue to monitor patient and make further evaluation. Continue on IV antibiotic therapy, Lovenox, as well as his Decadron 3 times a day. DOMONIQUE/ALEXANDR/LORETTA DR: DOMONIQUE/sanam TID: [id number]
[2021-05-02] MEDS: INSULIN LISPRO 300 UNITS/3 ML VIAL. SQ SCH ×6 (07:30→16:49)
[2021-05-02 07:44] LABS: BASO % 0 % (0-3); EOS % 0 % (0-3); HEMATOCRIT 36.4 % (39.0-53.0); HEMOGLOBIN 12.2 g/dL (13.0-17.5); LYMPH # 0.3 x10^3/uL (1.0-4.8); LYMPH % 7 % (24-48); MEAN CORPUSCULAR HEMOGLOBIN 30 pg (25-35); MEAN CORPUSCULAR HGB CONC 34 g/dL (31-37); MEAN CORPUSCULAR VOLUME 89 fL (79-100); MONO # 0.2 x10^3/uL (0.0-1.1); MONO % 4 % (0-9); NEUT # 3.8 x10^3uL (1.8-7.7); NEUT % 89 % (31-73); PLATELET COUNT 267 x10^3/uL (140-400); RED BLOOD COUNT 4.08 x10^6/uL (4.30-5.70); RED CELL DISTRIBUTION WIDTH 13.6 % (11.5-14.5); WHITE BLOOD COUNT 4.3 x10^3/uL (4.0-11.0)
[2021-05-02 07:53] LABS: CALCIUM 8.2 mg/dL (8.5-10.1); CREATININE 1.8 mg/dL (0.7-1.3); GFR 37.3; POTASSIUM 4.7 mmol/L (3.5-5.1)
[2021-05-02] MEDS ORDERED: DEXAMETHASONE 4 MG TABLET PO SCH (08:00)
[2021-05-02] MEDS: NYSTATIN 100,000 UNIT/GM TOPICAL CREAM 15GM TUBE. TP SCH ×2 (09:30→21:00)
[2021-05-02] MEDS: FLUTICASONE FUROATE 100mcg/INH ELLIPTA INHALER. INH SCH ×2 (09:30→21:00)
[2021-05-02] MEDS: FLUTICASONE 50MCG/NASAL SPRAY 16GM BOTTLE. NS SCH (09:30)
[2021-05-02] MEDS: ASPIRIN CHEWABLE 81 MG TABLET. PO SCH (11:15)
[2021-05-02] MEDS: DEXAMETHASONE 4 MG TABLET PO SCH ×3 (11:15→21:02)
[2021-05-02] MEDS: LACTOBACILLUS RHAMNOSUS GG 1 CAPSULE. PO SCH ×2 (11:16→21:01)
[2021-05-02] MEDS: GABAPENTIN 300 MG CAPSULE. PO SCH ×2 (11:16→21:01)
[2021-05-02] MEDS: MULTIVITAMIN with MINERAL TABLET. PO SCH (11:16)
[2021-05-02] MEDS: CITALOPRAM 20 MG TABLET. PO SCH (11:16)
[2021-05-02] MEDS: PANTOPRAZOLE 40 MG TABLET. PO SCH ×2 (11:17→21:02)
[2021-05-02] MEDS: CETIRIZINE HCL 10 MG TABLET PO SCH (11:17)
[2021-05-02] MEDS: CHOLECALCIFEROL (VITAMIN D3) 1,000 UNIT TABLET PO SCH (11:17)
[2021-05-02] MEDS: buPROPion XL 150 MG TAB.ER.24H PO SCH ×2 (11:19→21:01)
[2021-05-02] MEDS: MIDODRINE 2.5 MG TABLET PO SCH ×3 (11:19→18:15)
[2021-05-02] MEDS: DOCUSATE SODIUM 100 MG CAPSULE PO SCH (11:19)
[2021-05-02] MEDS: IPRATROPIUM/ALBUTEROL 20/100mcg/INH INHALER. INH SCH ×3 (11:20→21:00)
[2021-05-02] MEDS: TAMSULOSIN 0.4 MG CAP.ER.24H. PO SCH (11:24)
[2021-05-02] MEDS: ENOXAPARIN 40 MG/0.4 ML SYRINGE. SQ SCH ×2 (11:24→21:02)
[2021-05-02 12:15] VITALS: BP 130/74
[2021-05-02 16:22] VITALS: BP 107/62
[2021-05-02 19:00] VITALS: BP 123/74
[2021-05-02] MEDS: INSULIN GLARGINE SYRINGE. SQ SCH (21:00)
--- NOTE | 2021-05-02 23:29 | PN ---
DATE: 05/01/2021 REFERRING PHYSICIAN: Dr. Lara. SUBJECTIVE: The patient denies any new medical or neurological complaints; however, he continues to have memory loss, probably due to underlying dementia. OBJECTIVE: GENERAL: Well-developed, well-nourished male in no acute distress. VITAL SIGNS: Blood pressure 168/74, respiratory rate is 18, pulse is 68, temperature 98.5, oxygen saturation is 91% on 6 liters nasal cannula. HEENT: Normocephalic, atraumatic, otherwise unremarkable. NECK: Supple, negative for carotid bruit, lymphadenopathy or thyromegaly. LUNGS: Clear to A and P. CARDIOVASCULAR: Regular rate and rhythm, normal S1, S2. ABDOMEN: Soft. Bowel sounds positive. EXTREMITIES: Negative for cyanosis, clubbing or edema. NEUROLOGIC: Mental status: The patient is alert and oriented x 2. Speech is fluent. There is no language dysfunction. Memory, judgment and abstracting thinking are fair. The patient denies hallucination or delusion. Cranial nerves are intact. No focal motor or sensory deficit. The strength is 4/5 throughout. Sensory examination revealed diminished pinprick and light touch senses in patchy distributions in both lower extremities. Deep tendon reflexes were symmetric and hypoactive without pathology responses. Gait not tested. Coordination: The patient has normal [id number] and [id number]. Glucose today is 191. IMPRESSION: 1. Acute encephalopathy -- improved. 2. Dementia. 3. COVID-19 and pneumonia. 4. Multiple medical problems include coronary artery disease, hyperlipidemia, respiratory failure, diabetes mellitus type 2, depression, anxiety. RECOMMENDATIONS: 1. Continue with current medical care initiated by Dr. Lawson. 2. Physical therapy as tolerated. HUNG/DARYN DR: Beti TID: [id number]
[2021-05-03] MEDS: PIPERACILLIN/TAZOBACTAM 3.375 GM in IV NORMAL SALINE 50ML 50 ML IV SCH ×3 (00:23→11:48)
[2021-05-03 00:52] VITALS: BP 123/72
[2021-05-03] MEDS: FLUTICASONE 50MCG/NASAL SPRAY 16GM BOTTLE. NS SCH (06:20)
[2021-05-03] MEDS: MIDODRINE 2.5 MG TABLET PO SCH ×3 (06:38→17:14)
[2021-05-03 06:40] VITALS: BP 124/61
[2021-05-03] MEDS: ENOXAPARIN 40 MG/0.4 ML SYRINGE. SQ SCH (07:59)
[2021-05-03] MEDS: ASPIRIN CHEWABLE 81 MG TABLET. PO SCH (07:59)
[2021-05-03] MEDS: buPROPion XL 150 MG TAB.ER.24H PO SCH (07:59)
[2021-05-03] MEDS: TAMSULOSIN 0.4 MG CAP.ER.24H. PO SCH (08:00)
[2021-05-03] MEDS: CITALOPRAM 20 MG TABLET. PO SCH (08:00)
[2021-05-03] MEDS: CHOLECALCIFEROL (VITAMIN D3) 1,000 UNIT TABLET PO SCH (08:00)
[2021-05-03] MEDS: DEXAMETHASONE 4 MG TABLET PO SCH ×2 (08:00→15:58)
[2021-05-03] MEDS: DOCUSATE SODIUM 100 MG CAPSULE PO SCH (08:00)
[2021-05-03] MEDS: LACTOBACILLUS RHAMNOSUS GG 1 CAPSULE. PO SCH (08:00)
[2021-05-03] MEDS: PANTOPRAZOLE 40 MG TABLET. PO SCH (08:00)
[2021-05-03] MEDS: GABAPENTIN 300 MG CAPSULE. PO SCH (08:00)
[2021-05-03] MEDS: CETIRIZINE HCL 10 MG TABLET PO SCH (08:00)
[2021-05-03] MEDS: MULTIVITAMIN with MINERAL TABLET. PO SCH (08:00)
[2021-05-03] MEDS: FLUTICASONE FUROATE 100mcg/INH ELLIPTA INHALER. INH SCH (08:03)
[2021-05-03] MEDS: IPRATROPIUM/ALBUTEROL 20/100mcg/INH INHALER. INH SCH ×2 (08:03→15:58)
[2021-05-03] MEDS: NYSTATIN 100,000 UNIT/GM TOPICAL CREAM 15GM TUBE. TP SCH (08:03)
[2021-05-03] MEDS: INSULIN LISPRO 300 UNITS/3 ML VIAL. SQ SCH ×6 (09:50→17:13)
[2021-05-03 09:54] VITALS: BP 107/68
--- NOTE | 2021-05-03 10:24 | RAD ---
AP chest. HISTORY: Pneumonia, short of air AP view was taken of the chest. There are bilateral diffuse infiltrates with mild worsening compared to the prior study. Heart is normal in size. There is no pleural effusion. IMPRESSION: 1. Bilateral diffuse infiltrates with mild further worsening. Electronically signed by: Chang Tavares MD (05/03/2021 10:21 AM) [facility]
[2021-05-03 13:56] VITALS: BP 111/61
[2021-05-03 16:40] LABS: ALBUMIN 1.7 g/dL (3.4-5.0); ALBUMIN/GLOBULIN RATIO 0.4 (1.0-1.7); CALCIUM 8.2 mg/dL (8.5-10.1); POTASSIUM 4.2 mmol/L (3.5-5.1); TOTAL BILIRUBIN 0.3 mg/dL (0.2-1.0)
[2021-05-03 17:14] VITALS: BP 111/61
[2021-05-03] MEDS ORDERED: REMDESIVIR LOAD in IV NORMAL SALINE 250ML TV IV ONE (18:15)
[2021-05-03] MEDS ORDERED: INSULIN GLARGINE SYRINGE. SQ SCH ×2 (21:00)
--- NOTE | 2021-05-03 23:42 | PN ---
DATE: 05/02/2021 SUBJECTIVE: The patient denies any new medical neurological complaints; however, he continues to have shortness of breath when he walks. OBJECTIVE: GENERAL: Well-developed, well-nourished male in no acute distress. VITAL SIGNS: Blood pressure is 130/74, respiratory rate 18, pulse is 73, temperature 97.5, oxygen saturation 90% on 7 liters per nasal cannula. HEENT: Normocephalic, atraumatic, otherwise unremarkable. NECK: Supple, negative for carotid bruit, lymphadenopathy or thyromegaly. LUNGS: Clear to A and P. CARDIOVASCULAR: Regular rate and rhythm, normal S1, S2. There is no S3, S4, or murmur. ABDOMEN: Soft. Bowel sounds positive. EXTREMITIES: Negative for cyanosis, clubbing, or edema. NEUROLOGIC: Mental status: The patient is alert, but disoriented to time. He knows he is in the hospital. He recalls 2/3 immediately and 1/3 after 1 and 3 minutes. Judgment and abstracting thinking are fair. The patient denies hallucination or delusion. Cranial nerves are intact. No focal motor or muscle wasting. The strength is 4/5 throughout. Sensory examination revealed a diminished pinprick and light touch senses in patchy distributions in distal lower extremities. Deep tendon reflexes were symmetric and hypoactive with absent Achilles responses. Gait not tested. IMPRESSION: 1. Acute encephalopathy -- improved. 2. COVID-19 pneumonia. 3. Multiple medical problems include diabetes mellitus, hyperlipidemia, coronary artery disease, dementia, depression, and anxiety. RECOMMENDATIONS: 1. We will continue with current medical care initiated by Dr. Lawson. 2. The patient is neurologically stable. 3. Physical therapy as tolerated. KEITH DR: Beti TID: [id number]
--- NOTE | 2021-05-04 01:09 | PN ---
DATE: 05/03/2021 SUBJECTIVE: The patient denies any new medical or neurological complaints; however, he continues to have memory loss and forgetting things. OBJECTIVE: GENERAL: Well-developed, well-nourished male in no acute distress. VITAL SIGNS: Blood pressure 111/61, respiratory rate 20, pulse is 65, temperature 98.9, oxygen saturation is 92% on 15 liters per nasal cannula. HEENT: Normocephalic, atraumatic, otherwise unremarkable. NECK: Supple, negative for carotid bruit, lymphadenopathy or thyromegaly. LUNGS: Clear to A and P. CARDIOVASCULAR: Regular rhythm. Normal S1, S2. ABDOMEN: Soft. Bowel sounds positive. EXTREMITIES: Negative for cyanosis, clubbing, pitting edema. NEUROLOGIC: Mental Status: The patient is alert and oriented x 2. The speech is clear. There is no language dysfunction. The patient recalls 1/3 after 1 and 3 minutes. Judgment and abstracting thinking are fair. The patient denies hallucination or delusion. Cranial nerves are intact. No focal motor or sensory deficit. The strength is 4/5 throughout. Sensory examination revealed diminished pinprick and light touch senses in patchy distributions in distal lower extremities. Deep tendon reflexes were symmetric and hypoactive with absent Achilles responses. Gait not tested. IMPRESSION: 1. Acute encephalopathy -- resolved. 2. Dementia. 3. COVID-19 pneumonia. 4. Multiple medical problems include respiratory failure, hyperlipidemia, coronary artery disease, depressions, anxiety and diabetes mellitus. RECOMMENDATIONS: 1. Continue with current medical and psychiatric medical care initiated by Dr. Lawson. 2. Physical therapy as tolerated. The patient is neurologically stable. MARJ DR: Beti TID: [id number]
[2021-05-04] MEDS ORDERED: REMDESIVIR 100mg in NORMAL SALINE 250ML X 4 DAYS IV SCH (18:15)
--- NOTE | 2021-05-12 09:45 | DS ---
HOSPITAL COURSE: A 71-year-old male came in with shortness of breath. The patient's sugars were also in 400 and 500s. The patient was examined and found to have SARS-CoV-2 pneumonia, poorly controlled diabetes, ketoacidosis, diabetic neuropathy. He has also been suffering multiple falls at home and overall deteriorating. The patient was brought in, but because his oxygen saturations had remained above at first on room air, he was doing extremely well in the 95% range on room air. Blood pressures were stable. The patient was placed on IV antibiotic therapy and aggressive pulmonary toilet. As his situation worsened, we put him on a course of remdesivir. He was on Lovenox from the beginning. He was on Zosyn and Levaquin after he was switched off from Rocephin and Zithromax at first. The patient made some progress. He was doing fairly well and then suddenly had a turn for the worse in terms of his respiratory effort. He was not responding well to the protocol that we were using at that time. His oxygen saturation was dropping down as low as 84%. We had to put him on a high flow nasal cannula and rebreather. He was then transferred down to [facility] for further aggressive evaluation. In the meantime, he had some seizure-like activity and Dr. Jim noted neurologist was consulted for his expertise in that area, made timely suggestions. Cardiology also saw the patient presently as well and made further suggestions there. ASSESSMENT: Overall assessment on transfer down to [facility]: Acute respiratory failure, sepsis, COVID-19 pneumonia, hypotension, coronary artery disease, hyperlipidemia, type 2 diabetes, acute encephalopathy, dementia, depression, anxiety, severe protein malnutrition, poorly controlled diabetes. The patient transferred via EMS. CATARINA DEL TORO: Cameron TID: [id number]
== END 2021-05-03 19:00 | disposition short-term general hospital (02) | DRG 177 ==
LOC: ER 03:25 → 1 SOUTH 05:30
PROVIDERS: ADMIT Family Medicine; ATTEND Family Medicine
PROC: 5A0935A Assistance with Respiratory Ventilation, Less than 24 Consecutive Hours, High Flow/Velocity Cannula (ICD-10-PCS; 2021-05-01)
PROC: XW033E5 Introduction of Remdesivir Anti-infective into Peripheral Vein, Percutaneous Approach, New Technology Group 5 (ICD-10-PCS; principal; 2021-05-03)
PROC: 5A0935A Assistance with Respiratory Ventilation, Less than 24 Consecutive Hours, High Flow/Velocity Cannula (ICD-10-PCS; 2021-05-03)
DX: U07.1 COVID-19 (principal); J96.00 Acute respiratory failure, unspecified whether with hypoxia or hypercapnia; J12.82 Pneumonia due to coronavirus disease 2019; E43 Unspecified severe protein-calorie malnutrition; G93.41 Metabolic encephalopathy; I24.8 Other forms of acute ischemic heart disease; I50.32 Chronic diastolic (congestive) heart failure; I11.0 Hypertensive heart disease with heart failure; Z96.653 Presence of artificial knee joint, bilateral; J43.9 Emphysema, unspecified; E78.00 Pure hypercholesterolemia, unspecified; E78.5 Hyperlipidemia, unspecified; F41.9 Anxiety disorder, unspecified; K21.9 Gastro-esophageal reflux disease without esophagitis; E11.40 Type 2 diabetes mellitus with diabetic neuropathy, unspecified; I25.10 Atherosclerotic heart disease of native coronary artery without angina pectoris; G47.33 Obstructive sleep apnea (adult) (pediatric); E87.6 Hypokalemia; E11.65 Type 2 diabetes mellitus with hyperglycemia; R29.6 Repeated falls; E86.0 Dehydration; I95.9 Hypotension, unspecified; F03.90 Unspecified dementia, unspecified severity, without behavioral disturbance, psychotic disturbance, mood disturbance, and anxiety; F32.A Depression, unspecified; N28.9 Disorder of kidney and ureter, unspecified; Z90.49 Acquired absence of other specified parts of digestive tract; Z87.891 Personal history of nicotine dependence; Z68.24 Body mass index [BMI] 24.0-24.9, adult
CPT/HCPCS: 36415; 36600; 70450; 71045; 72192; 73030; 80048; 80053; 80307; 81001; 82803; 82947; 83036; 83605; 83735; 83880; 84443; 84484; 85025; 87040; 87426; 93005; 96374; 96375; J0456; J0696; J1100; J1650; J1815; J1940; J1956; J2543; J3420; J7040; J7050; J8540; 97110; 97530; 99285-25